=== PATIENT | female | born 1955 | race Caucasian/White ===

== ENCOUNTER → 2022-08-27 | Outpatient (CLI) | payer MEDICARE, SELFPAY ==
--- NOTE | 2022-08-27 11:46 | US_ITS ---
INDICATION: UTI EXAMINATION: Ultrasound US Kidney(s) complete (eg, kidneys and bladder) TECHNIQUE: Boothe scale and color doppler images were obtained of the kidneys. COMPARISON: No relevant prior comparison study available FINDINGS: RIGHT KIDNEY: The right kidney measures 9.5 cm in length. There is no hydronephrosis. No shadowing calculus, focal lesion or perinephric collection is demonstrated. LEFT KIDNEY: The left kidney measures 11.3 cm in length. There is no hydronephrosis. No shadowing calculus, focal lesion or perinephric collection is demonstrated. URINARY BLADDER: No acute abnormality. US/Kidney and Bladder IMPRESSION: Within normal limits renal ultrasound. Electronically Signed: Tona Cruz MD at 12:39 EDT ,
== END | disposition home or self-care (01) ==
PROVIDERS: PCP Student in an Organized Health Care Education/Training Program; Referring Provider Urology; Visit Provider Urology
DX: N39.0 Urinary tract infection, site not specified (principal)
CPT/HCPCS: 76770

== ENCOUNTER → 2022-12-19 | Outpatient (CLI) | payer MEDICARE, SELFPAY ==
--- NOTE | 2022-12-19 12:27 | CT_ITS ---
STUDY: CT CHEST WITH CONTRAST REASON FOR EXAM: Female, 67 years old. CHEST PAIN RADIATION DOSAGE (If Supplied By Facility): CTDIvol = ( 33.32 ) mGy, DLP = ( 1166.38 ) mGycm TECHNIQUE: Transaxial imaging was performed following intravenous administration of 50 mL of Isovue 370. Individualized dose optimization techniques were used for this CT. COMPARISON: No relevant priors. FINDINGS: CHEST Minimal linear scarring at the right lung base. There is no demonstrated pleural abnormality. Normal heart and pericardium. No significant coronary artery calcification is seen. Normal mediastinum. Normal hilar regions. Normal unenhanced pulmonary arteries. Mild calcific plaque of the aortic arch. Normal osseous structures. Fatty infiltration of the liver. CT/Limited Chest CT Cardiac Only IMPRESSION: No evidence of coronary artery calcification. Electronically Signed: Sergio Barraza MD at 15:41 EST ,
[2022-12-19 12:42] VITALS: BP 154/67; PULSE 61; RESP 16; O2SAT 98; BMI 32.1
[2022-12-19 13:02] VITALS: PULSE 56
[2022-12-19] MEDS: Nitroglycerin SL (ED/IMG/CATH) 0.4 MG TABLET SL (13:02)
[2022-12-19 13:07] VITALS: BP 133/71; PULSE 61; RESP 14; O2SAT 95
[2022-12-19 13:09] LABS: EGFR FINGERSTICK > 60.0000 mL/min (>60)
--- NOTE | 2022-12-31 18:36 | CCTA_ITS ---
CCTA w/Cont Coronary Arteries Date of Study:: 12/19/22 Chest pain Coronary Calcium Scoring: High-resolution Computed Tomographic imaging of the chest was performed on [12/19/2022], with particular attention paid to the coronary arteries. Intravenous contrast agent was administered per protocol and images reconstructed and displayed. LEFT MAIN CORONARY ARTERY: Arose from the left coronary cusp with no significant calcification or stenosis present [] LEFT ANTERIOR DESCENDING CORONARY ARTERY: Minimal atherosclerotic plaquing noted with no high-grade stenosis present [] LEFT CIRCUMFLEX CORONARY ARTERY: Minimal atherosclerotic plaque with no high- grade stenosis present [] RIGHT CORONARY ARTERY: Dominant vessel with no significant atherosclerotic plaque noted. [] THORACIC AORTA: [] PULMONARY ARTERY: [] LEFT ATRIUM/APPENDAGE: [] MITRAL VALVE: [] AORTIC VALVE: [] LEFT VENTRICLE: [] CORONARY CALCIUM SCORE: Not performed Conclusion: Minimal atherosclerotic cardiovascular plaque noted. []
== END | disposition home or self-care (01) ==
PROVIDERS: PCP Student in an Organized Health Care Education/Training Program; Referring Provider Nurse Practitioner Family; Visit Provider Nurse Practitioner Family
DX: R07.9 Chest pain, unspecified (principal); I10 Essential (primary) hypertension; E78.5 Hyperlipidemia, unspecified; I34.1 Nonrheumatic mitral (valve) prolapse
CPT/HCPCS: 75574; 76380; Q9967

== ENCOUNTER 2024-11-03 05:26 | Day surgery (SDC) | payer MEDICARE, SELFPAY ==
--- NOTE | 2024-10-28 15:58 | PAT.ANESEVAL ---
Pre-Assessment Diagnosis/Proposed Procedure Planned Operative Procedure(s): EGD Anesthesia History Anesthesia History - resource engineer: Anesthesia History - resource engineer Hx Hospitalization No 10/28/24 14:14 Any Problems With Anesthesia No 10/28/24 14:14 Cholinesterase deficiency No 10/28/24 14:14 You/Your Family Experience No 10/28/24 14:14 fever (hyperthermia) with Relationship Recent Exposure to Contagious Disease Does patient have nerve No 10/28/24 14:14 stimulator Patient instructed to have device shut off --Does patient have Pacemaker or ICD? When Was Last Pacemaker Check QUESTION #4 FULL TEXT: You/Your Family Experience fever (hyperthermia) with Anesthesia Last Oral Intake Last Oral intake: Last Oral Intake NPO since Meds taken in AM with sips of water? Meds patient instructed to take am of surgery PONV PONV - resource engineer: PONV - resource engineer Female Yes 10/28/24 14:14 HX of Motion Sickness No 10/28/24 14:14 HX of N/V After Surgery No 10/28/24 14:14 Non-Smoker Yes 10/28/24 14:14 Duration of Surgery greater No 10/28/24 14:14 than 60 minutes Number of Risk Factors 2 10/28/24 14:14 PONV Score Moderate Risk 10/28/24 14:14 Height & Weight Height & Weight: Anesthesia: Height & Weight Height 5 ft 6 in 09/22/24 13:57 Respiratory Assessment Respiratory Assessment - resource engineer: Respiratory Tract Infection Hx - resource engineer Hx Respiratory Tract Infection No 10/28/24 14:14 STOP Sleep Apnea STOP Sleep Apnea - resource engineer: STOP Sleep Apnea - resource engineer Hx Hypertension Yes: CONTROLLED ON MED 10/28/24 14:14 Hx Sleep Apnea No 10/28/24 14:14 CPAP BIPAP Do you snore loudly (louder Yes 10/28/24 14:14 than talking or can be heard Do you often feel tired/ No 10/28/24 14:14 fatigued/ sleepy during daytime? Has anyone observed you stop No 10/28/24 14:14 breathing during sleep? STOP Results Positive 10/28/24 14:14 QUESTION #5 FULL TEXT : Do you snore loudly (louder than talking or can be heard through closed doors)? Tobacco Use History Tobacco Use History - resource engineer: Tobacco Use History - resource engineer Tobacco Use Smoking Status Never smoker 10/28/24 14:14 Hx Tobacco Use No 10/28/24 14:14 Years Smoking Packs Smoked per Day Smoking Cessation Date was within the last 15 years Hx Smoking Cessation Date Hx Smoking Cessation Counseling Hematologic Medial History Hematologic Hx - resource engineer: Hematologic Medical Hx - senior information security consultant Hx of Blood Transfusion No 10/28/24 14:14 Hx of Transfusion in last 3 No 10/28/24 14:14 Months Date of Last Transfusion (if within last 3 months) Ever experience any problems No 10/28/24 14:14 with transfusion(s)? Specify any problems Hx of Preganancy in last 3 No 10/28/24 14:14 Months Nurse Filling Out Transfusion VCHRISTIN 10/28/24 14:14 & Questions: Date: 10/28/24 10/28/24 14:14 Time: 14:16 10/28/24 14:14 Patient unable to answer at this time (ie. confused, unrespo /Reproduction History /Reproductive History - resource engineer: /Reproductive Hx- resource engineer Hx Now No 10/28/24 14:14 Gestational Age (in weeks): EDC: Hx Hx Para Hx Section SAB No 10/28/24 14:14 [facility] Medical History (Updated 10/28/24 @ 14:14 by Shruti Soliman) Wears contact lenses Wears glasses Post-menopausal Cancer History of steroid therapy Migraine headache Gastric reflux Non-smoker History of echocardiogram History of stress test Cardiology follow-up encounter History of irregular heartbeat Skin cancer Mitral valve prolapse Kidney stones Ovarian cancer UTI (urinary tract infection) Peripheral edema Migraine with aura History of kidney stones History of ovarian cancer Fatty liver Elevated HDL Diverticulosis Dermatofibroma History of basal cell carcinoma Mitral and aortic regurgitation Hypertension Home Medications ?Medication ?Instructions ?Recorded ?Last Taken ?Type vibegron 75 mg tablet (Gemtesa) 75 mg PO DAILY 12/19/22 Unknown History lactobacillus combination no.9 4 4,000 mmu cells PO QDAY 09/21/24 Unknown History billion cell capsule (Adult 50 Plus Probiotic) multivitamin 1 tab PO QAM 09/21/24 Unknown History naratriptan 1 mg tablet 1 mg PO PRN 09/21/24 Unknown History calcium 600 mg (as 1 cap PO BID 09/22/24 Unknown History carbonate)-vitamin D3 12.5 mcg (500 unit) capsule (Calcium with Vit D3) esomeprazole magnesium 20 mg 30 mg PO QDAY 09/22/24 Unknown History capsule,delayed release irbesartan 300 mg tablet 150 mg PO BID 09/22/24 Unknown History semaglutide (weight loss) 1 mg/0.5 1 mg subcut QWEEK 09/22/24 Unknown History mL subcutaneous pen injector (Wegovy) Allergy/AdvReac Type Severity Reaction Status Date / Time tolterodine (From Detrol) AdvReac Intermediate buzzing in Verified 10/28/24 14:04 ears Family History Mother Allergic rhinitis Alzheimer's dementia Asthma CHF (congestive heart failure) Cancer Lung DJD (degenerative joint disease) Heart disease Lymphoma Osteoporosis Father Cancer prostate and renal Hypertension Sister Cancer Depression Surgical History (Updated 10/28/24 @ 14:14 by Shruti Soliman) History of esophagogastroduodenoscopy (EGD) H/O colonoscopy H/O wisdom tooth extraction History of tonsillectomy History of appendectomy History of total knee replacement H/O: hysterectomy H/O Achilles tendon repair Social History Smoking Status: Never smoker alcohol intake: current details: rare: 1 to 2 times a year substance use type: does not use what type of physical activity do you participate in: walking frequency: 5-6 times per week Audit: Pertinent Findings Pertinent Findings Consult pertinent findings: Patient with history of hypertension, MVP, and hyperlipidemia. She underwent a coronary CTA 12/31/2022 which showed minimal plaque. Last echo was on 03/27/2018 and it showed EF of 60 to 65% normal mitral valve and mild TR. Recommendation Anesthesia Recommendation Anesthesia recommendation: OPTIMIZED for anesthesia
[2024-11-03] VITALS (7 sets, daily range): BP systolic 96–136; BP diastolic 61–72; PULSE 63–65; RESP 16–18; TEMP 36.2–36.6; O2SAT 96–98; BMI 28.0
--- OUTSIDE RECORDS SUMMARY | 2024-11-03 05:30 | XMS RPT_ITS | CCD ---
Author Organization [facility] Care Team Providers Care [facility] Machine Feeder Name Role Phone ALBA VICK, MILVIA Sharma Primary Care Physician [phone] ROMAR DO, DR SIFUENTES Primary Care Physician [phone] APPLE VICK, DR EMILI Brown Attending Unavailab le ROMAR DO, DR SIFUENTES Primary Care Unavailable ROMAR DO, DR SIFUENTES Attending Unavailable ROMAR DO, DR SIFUENTES Primary Care Unavailable ROMAR DO, DR SIFUENTES Attending Unavailable ROMAR DO, DR SIFUENTES Primary Care Unavailable ROMAR DO, DR SIFUENTES Primary Care Unavailable ARRON DO, XAVI Fritz Attending Unavailable ROMAR DO, DR SIFUENTES Primary Care Unavailable ROMAR DO, DR SIFUENTES Attending Unavailable ROMAR DO, DR SIFUENTES Primary Care Unavailable SUPPAN DPM, JILL Ordoñez Attending Unavailable ROMAR DO, DR SIFUENTES Attending Unavailable ROMAR DO, DR SIFUENTES Primary Care Unavailable ROMAR DO, DR SIFUENTES Attending Unavailable ROMAR DO, DR SIFUENTES Primary Care Unavailable ROMAR DO, DR SIFUENTES Attending Unavailable ROMAR DO, DR SIFUENTES Primary Care Unavailable APPLE VICK, DR EMILI Brown Attending Unavailab le ROMAR DO, DR SIFUENTES Primary Care Unavailable APLPE VICK, DR EMILI Brown Attending Unavailab le ROMAR DO, DR SIFUENTES Primary Care Unavailable APPLE VICK, DR EMILI Brown Attending Unavailab le ROMAR DO, DR SIFUENTES Primary Care Unavailable Romar DO, Dr. Sifuentes Primary Care Provider [phone] Layton VICK, Dr. Phillips Attending Provider [phone] Zaki JAIMES, Dr. Sifuentes Referring Provider Cole SMALLWOOD-CStacey Attending Provider ZAKI DO, DR SIFUENTES Primary Care Unavailable ROMAR DO, DR SIFUENTES Attending Unavailable ROMAR DO, DR SIFUENTES Primary Care Unavailable ROMAR DO, DR SIFUENTES Attending Unavailable ROMAR DO, DR SIFUENTES Primary Care Unavailable ROMAR DO, DR SIFUENTES Attending Unavailable ROMAR DO, DR SIFUENTES Primary Care Unavailable ROMAR DO, DR SIFUENTES Attending Unavailable ROMAR DO, DR SIFUENTES Primary Care Unavailable ROMAR DO, DR SIFUENTES Attending Unavailable ROMAR DO, DR SIFUENTES Primary Care Unavailable ROMAR DO, DR SIFUENTES Attending Unavailable ROMAR DO, DR SIFUENTES Primary Care Unavailable ROMAR DO, DR SIFUENTES Attending Unavailable ROMAR DO, DR SIFUENTES Attending Unavailable ROMAR DO, DR SIFUENTES Primary Care Unavailable ROMAR DO, DR SIFUENTES Primary Care Unavailable ROMAR DO, DR SIFUENTES Attending Unavailable ROMAR DO, DR SIFUENTES Primary Care Unavailable ROMAR DO, DR SIFUENTES Attending Unavailable ROMAR DO, DR SIFUENTES Attending Unavailable ROMAR DO, DR SIFUENTES Primary Care Unavailable ROMAR DO, DR SIFUENTES Primary Care Unavailable ROMAR DO, DR SIFUENTES Attending Unavailable ROMAR DO, DR SIFUENTES Primary Care Unavailable ROMAR DO, DR SIFUENTES Attending Unavailable ROMAR DO, DR SIFUENTES Attending Unavailable ROMAR DO, DR SIFUENTES Primary Care Unavailable ROMAR DO, DR SIFUENTES Primary Care Unavailable ROMAR DO, DR SIFUENTES Attending Unavailable Romar, Bear Primary Care Unavailable Romar, Bear Referring Unavailable Stacey Galvan Attending Unavailable Busterar, Bear Primary Care Unavailable Friend, Almas Attending Unavailable Allergies Allergy Classification Reported Allergen(s) Allergy Type Date of Onset Reaction(s) Facility tolterodine (1 source) tolterodine; Translations: [tolterodine] Drug Allergy BUZZING IN HEAD [facility] (20 sources) tolterodine; Translations: [tolterodine] Drug Allergy 3 BUZZING IN HEAD, Other, buzzing in ears [facility] (1 source) tolterodine Drug Allergy 5 [facility] Repository Medications Current Medications Medication Drug Class(es) Dates Sig (Normalized) Sig (Original) 0.5 ML semaglutide 0.5 MG/ML Auto-Injector [Wegovy] (1 source) Start: 06-10-2024 End: 08-05-2024 inject 1 dose by subcutaneous injection every week Wegovy (0.25 mg dose) subcutaneous solution Dose : 0.25 mg =, Subcutaneous, qWeek, [facility] program $499/month, # 2 mL, 1 Refill(s), Pharmacy: [facility], 167.6, cm, 05/27/24 15:50:00 EDT, Height, kg, 05/27/24 15:50:00 EDT, Dosing Weight Start Date: 06/10/24 Stop Date: 08/05/24 Status: Ordered Quantity: 2.0 Unit: mL Repeat number: 2 0.5 ML semaglutide 1 MG/ML Auto-Injector [Wegovy] (3 sources) Start: 06-24-2024 End: 10-14-2024 inject 1 dose by subcutaneous injection every week Wegovy (0.5 mg dose) subcutaneous solution Dose : 0.5 mg =, Subcutaneous, qWeek, in the abdomen, thigh, or upper arm, # 2 mL, 3 Refill(s), Pharmacy: [facility], 167.6, cm, 05/27/24 15:50:00 EDT, Height, kg, 05/27/24 15:50:00 EDT, Dosing Weight Start Date: 06/24/24 Stop Date: 10/14/24 Status: Ordered Quantity: 2.0 Unit: mL Repeat number: 4 0.5 ML semaglutide 2 MG/ML Auto-Injector [Wegovy] (5 sources) Start: 09-02-2024 End: 11-25-2024 inject 1 dose by subcutaneous injection every week Wegovy (1 mg dose) subcutaneous solution Dose : 1 mg =, Subcutaneous, qWeek, in the abdomen, thigh, or upper arm, # 2 mL, 2 Refill(s), Pharmacy: [facility], 162.5, cm, 09/01/24 10:23:00 EDT, Height, kg, 09/01/24 10:23:00 EDT, Dosing Weight Start Date: 09/02/24 Stop Date: 11/25/24 Status: Ordered Medication Dispense Status: Completed Quantity: 2.0 Unit: mL Total Allowed Fills: 3 Fills Dispensed: 0 Start: 09-02-2024 End: 11-25-2024 inject 1 dose by subcutaneous injection every week Evaristo (1 mg dose) subcutaneous solution Dose : 1 mg =, Subcutaneous, qWeek, in the abdomen, thigh, or upper arm, # 2 mL, 2 Refill(s), Pharmacy: [facility], 162.5, cm, 09/01/24 10:23:00 EDT, Height, kg, 09/01/24 10:23:00 EDT, Dosing Weight Start Date: 09/02/24 Stop Date: 11/25/24 Status: Ordered Quantity: 2.0 Unit: mL Repeat number: 3 amLODIPine 5 mg oral tablet (2 sources) Dihydropyridine Calcium Channel Libertad Start: 01-09-2021 take 1 tablet by mouth once daily amLODIPine 5 mg oral tablet See Instructions, TAKE 1 TABLET BY MOUTH EVERY DAY, # 30 tab(s), 3 Refill(s), Pharmacy: [id number], 165.5, cm, 12/15/20 7:59:00 EDT, Height, kg, 12/15/20 7:59:00 EDT, Dosing Weight Start Date: 01/09/21 Status: Ordered Start: 12-15-2020 amLODIPine 5 m g oral tablet Dose : 5 mg = 1 tab(s), Oral, qDay, # 30 tab(s), 3 Refill(s), Pharmacy: [facility]/pharmacy #[id number], 165.5, cm, 12/15/20 7:59:00 EDT, Height, kg, 12/15/20 7:59:00 EDT, Dosing Weight Start Date: 12/15/20 Status: Ordered amoxicillin 500 mg oral capsule (1 source) Penicillin-class Antibacterial Start: 04-24-2022 amoxicillin 500 mg oral capsule Dose : 500 mg = 1 cap(s), TID, 0 Refill(s) Start Date: 04/24/22 Status: Ordered amoxicillin 875 mg / clavulanate 125 mg oral tablet (2 sources) Penicillin-class Antibacterial Start: 11-25-2020 End: 12-02-2020 take 1 tablet by mouth every twelve hours amoxicillin-clav ulanate 875 mg-125 mg oral tablet 1 tab(s), Oral, q12h, X 7 day(s), # 14 tab(s), 0 Refill(s), 12/02/20 8:43:00 EDT, Pharmacy: [facility]/pharmacy #[id number], Acute sinusitis, 167.6, cm, 11/25/20 8:19:00 EDT, Height, 92.3, kg, 11/25/20 8:19:00 EDT, Dosing Weight Start Date: 11/25/20 Stop Date: 12/02/20 Status: Ordered benzonatate 100 mg oral capsule (2 sources) Non-narcotic Antitussive Start: 11-25-2020 End: 12-05-2020 Tessalon Perles 100 mg oral capsule Dose : 100 mg = 1 cap(s), Oral, TID, PRN as needed for cough, X 10 day(s), # 30 cap(s), 0 Refill(s), 12/05/20 8:44:00 EDT, Pharmacy: [facility]/pharmacy #[id number], Acute sinusitis, 167.6, cm, 11/25/20 8:19:00 EDT, Height, kg, 11/25/20 8:19:00 EDT, Dosing Weight Start Date: 11/25/20 Stop Date: 12/05/20 Status: Ordered calcium carbonate 1500 mg / cholecalciferol 500 unt oral capsule (1 source) Vitamin D Start: 09-22-2024 Calcium Carbonate-Vitami n D3 (Calcium 600 With Vitamin D3) 600 mg-12.5 mcg (500 unit) capsule Active NMA PO September 22, 2024 12:00am calcium carbonate 600 MG / ergocalciferol 200 UNT Oral Capsule (20 sources) Provitamin D2 Compound Start: 10-16-2018 take 1 capsule by mouth twice daily calcium-vitamin D 600 mg-200 intl units oral capsule cap(s), Oral, BID, 0 Refill(s) Start Date: 10/16/18 Status: Ordered Repeat number: 1 Start: 10-16-2018 take 1 capsule by mo [facility] twice daily calcium-vitamin D 600 mg-200 intl units oral capsule cap(s), Oral, BID, 0 Refill(s) Start Date: 10/16/18 Status: Ordered Calcium Carbonate-Vitamin D2 (1 source) Start: 12-19-2022 Calcium Carbon ate-Vitamin D2 Active TABLET PO December 19, 2022 12:00am Calcium with Vitamin D and Minerals oral tablet (9 sources) Start: 03-12-2024 take 1 tablet by mouth twice daily Calcium with Vitamin D and Minerals oral tablet Dose = 2 tab(s), Oral, BID, with a full glass of water, # 120 tab(s), 0 Refill(s) Start Date: 03/12/24 Status: Ordered Medication Dispense Status: Completed Quantity: 120.0 Unit: tab(s) Total Allowed Fills: 1 Fills Dispensed: 0 Start: 03-12-2024 take 1 tablet by kisha th twice daily Calcium with Vitamin D and Minerals oral tablet Dose = 2 tab(s), Oral, BID, with a full glass of water, # 120 tab(s), 0 Refill(s) Start Date: 03/12/24 Status: Ordered Quantity: 120.0 Unit: tab(s) Repeat number: 1 Calcium/Magnesium/Vit D (7 sources) Start: 08-23-2014 take 600 mg by mouth twice daily Calcium/Magnesium/Vit D 600 mg, Oral, BID, 0 Refill(s) Start Date: 08/23/14 Status: Ordered carvedilol 6.25 mg oral tablet (4 sources) alpha-Adrenergic Libertad, beta-Adrenergic Libertad Start: 09-12-2020 carvedilol 6.25 mg oral tablet Dose : 6.25 mg = 1 tab(s), Oral, BID, # 60 tab(s), 11 Refill(s), Pharmacy: [facility]/pharmacy #[id number], 168, cm, 02/16/20 11:11:00 EST, Height, kg, 02/16/20 11:11:00 EST, Dosing Weight Start Date: 09/12/20 Status: Ordered ciprofloxacin 250 mg oral tablet (1 source) Quinolone Antimicrobial Start: 12-17-2020 End: 12-24-2020 Cipro 250 mg oral tablet Dose : 250 mg = 1 tab(s), Oral, q12h, X 7 day(s), # 14 tab(s), 0 Refill(s), 12/24/20 8:40:00 EST, Pharmacy: [facility]/pharmacy #[id number], 165.5, cm, 12/15/20 7:59:00 EDT, Height, 92.6, kg, 12/15/20 7:59:00 EDT, Dosing Weight Start Date: 12/17/20 Stop Date: 12/24/20 Status: Ordered Co-Q10 (15 sources) Start: 12-31-2019 take 1 dose by mouth once daily Co-Q10 Dose : 100 mg =, Oral, qDay, 0 Refill(s) Start Date: 12/31/19 Status: Ordered Start: 12-31-2019 esomeprazole 20 mg delayed release oral capsule (20 sources) Proton Pump Inhibitor Start: 09-22-2024 Esomeprazole Magnesi um 20 mg capsule,delayed release(DR/EC) Active 30 mg PO daily September 22, 2024 1:43pm Start: 09-01-2024 End: 02-28-2025 esomeprazole 20 mg oral patricio yed release capsule Dose : 20 mg = 1 cap(s), Oral, qDayAC, on an empty stomach, # 90 cap(s), 1 Refill(s), [id number], 162.5, cm, 09/01/24 10:23:00 EDT, Height, kg, 09/01/24 10:23:00 EDT, Dosing Weight Start Date: 09/01/24 Stop Date: 02/28/25 Status: Ordered Medication Dispense Status: Completed Quantity: 90.0 Unit: cap(s) Total Allowed Fills: 2 Fills Dispensed: 0 Start: 03-03-2024 End: 08-25-2024 esomeprazole 20 mg oral patricio yed release capsule Dose : 20 mg = 1 cap(s), Oral, qDay, on an empty stomach, # 90 cap(s), 0 Refill(s), Pharmacy: [facility]/pharmacy #[id number], 167.6, cm, 03/12/24 10:19:00 EST, Height, kg, 03/12/24 10:19:00 EST, Dosing Weight Start Date: 05/27/24 Stop Date: 08/25/24 Status: Ordered Quantity: 90.0 Unit: cap(s) Repeat number: 1 Start: 06-11-2023 End: 03-14-2024 esomeprazole 40 mg oral patricio yed release capsule Dose : 40 mg = 1 cap(s), Oral, qDayAC, on an empty stomach, # 100 cap(s), 1 Refill(s), Pharmacy: [facility]/pharmacy #[id number], 162.8, cm, 08/27/23 15:13:00 EDT, Height, kg, 08/27/23 15:13:00 EDT, Dosing Weight Start Date: 08/27/23 Stop Date: 03/14/24 Status: Ordered Start: 05-03-2023 esomeprazole 4 0 mg oral delayed release capsule Dose : 40 mg = 1 cap(s), Oral, qDayAC, on an empty stomach, # 90 cap(s), 0 Refill(s), Pharmacy: [facility]/pharmacy #[id number], 164, cm, 03/19/23 10:51:00 EST, Height, kg, 03/19/23 10:51:00 EST, Dosing Weight Start Date: 05/03/23 Status: Ordered Start: 08-07-2022 esomeprazole 4 0 mg oral delayed release capsule Dose : 40 mg = 1 cap(s), Oral, qDayAC, on an empty stomach, # 90 cap(s), 1 Refill(s), Pharmacy: [facility]/pharmacy #[id number], 165.4, cm, 08/07/22 11:32:00 EDT, Height, kg, 08/07/22 11:32:00 EDT, Dosing Weight Start Date: 08/07/22 Status: Ordered Start: 07-26-2022 esomeprazole 4 0 mg oral delayed release capsule Dose : 40 mg = 1 cap(s), Oral, qDayAC, # 90 cap(s), 0 Refill(s), Pharmacy: [facility]/pharmacy #[id number], 162.6, cm, 07/24/22 11:57:00 EDT, Height, kg, 07/24/22 11:57:00 EDT, Dosing Weight Start Date: 07/26/22 Status: Ordered Start: 12-27-2021 esomeprazole 4 0 mg oral delayed release capsule Dose : 40 mg = 1 cap(s), Oral, qDayAC, # 90 cap(s), 1 Refill(s), Pharmacy: [facility]/pharmacy #[id number], 165.5, cm, 12/27/21 16:29:00 EST, Height, kg, 12/27/21 16:29:00 EST, Dosing Weight Start Date: 12/27/21 Status: Ordered Start: 04-18-2021 esomeprazole 4 0 mg oral delayed release capsule Dose : 40 mg = 1 cap(s), Oral, qDayAC, # 90 cap(s), 3 Refill(s), [id number], 165.4, cm, 01/20/21 11:51:00 EST, Height, kg, 01/20/21 11:51:00 EST, Dosing Weight Start Date: 04/18/21 Status: Ordered esomeprazole 40 mg oral delayed release capsule (5 sources) Start: 11-22-2020 esomeprazole 40 mg oral delayed release capsule Dose : 40 mg = 1 cap(s), Oral, qDayAC, 0 Refill(s) Start Date: 11/22/20 Status: Ordered hydroCHLOROthiazide 25 mg oral tablet (5 sources) Thiazide Diuretic Start: 11-09-2021 take 1 tablet by mouth once daily hydroCHLOROthiazide 25 mg oral tablet 1 tab(s), Oral, qDay, # 90 tab(s), 3 Refill(s), [id number], 165.5, cm, 11/09/21 9:58:00 EDT, Height, kg, 11/09/21 9:58:00 EDT, Dosing Weight Start Date: 11/09/21 Status: Ordered Start: 08-07-2021 take 1 tablet by kisha th once daily hydroCHLOROthiazide 25 mg oral tablet 1 tab(s), Oral, qDay, # 90 tab(s), 1 Refill(s), Pharmacy: [id number], 165.5, cm, 07/27/21 8:30:00 EDT, Height, kg, 07/27/21 8:30:00 EDT, Dosing Weight Start Date: 08/07/21 Status: Ordered hydrocortisone 10 mg/ml / neomycin 3.5 mg/ml / polymyxin b 07110 unt/ml otic solution (1 source) Aminoglycoside Antibacterial, Polymyxin-class Antibacterial, Corticosteroid Start: 04-24-2022 hydrocortisone/neomycin/poly myxin B 1%-0.35%-10,000 units/mL otic solution See Instructions, 4 drop(s) Ear, right, three to four times daily for 10 days. Otic suspension please, # 10 mL, 0 Refill(s), Pharmacy: [facility]/pharmacy #[id number], 165.5, cm, 04/24/22 13:21:00 EDT, Height, Dosing Weight Start Date: 04/24/22 Status: Ordered ibuprofen 200 mg oral tablet (19 sources) Nonsteroidal Anti-inflammatory Drug Start: 03-31-2019 Advil 200 mg oral tablet Dos e : 400 mg = 2 tab(s), Oral, q4h, PRN as needed for pain, # 120 tab(s), 0 Refill(s) Start Date: 03/31/19 Status: Ordered irbesartan 300 mg oral tablet (18 sources) Angiotensin 2 Receptor Libertad Start: 05-04-2024 End: 09-22-2024 take 1 tablet by mouth once daily Irbesartan 300 mg tablet Discontinued 300 mg PO daily September 21, 2024 12:00am September 22, 2024 1:45pm Start: 05-04-2024 take 1 tablet by kisha th twice daily Irbesartan 300 mg tablet Active 150 mg PO TWICE A DAY September 22, 2024 1:42pm Start: 07-23-2023 irbesartan 300 mg oral tablet Dose : 300 mg = 1 tab(s), Oral, qDay, # 90 tab(s), 1 Refill(s), Pharmacy: [facility]/pharmacy #[id number], 163, cm, 06/25/23 6:03:00 EDT, Height, kg, 06/25/23 6:03:00 EDT, Dosing Weight Start Date: 07/23/23 Status: Ordered Quantity: 90.0 Unit: tab(s) Repeat number: 2 Start: 04-23-2023 irbesartan 150 mg oral tablet Dose : 150 mg = 1 tab(s), Oral, BID, # 180 tab(s), 3 Refill(s), Pharmacy: [facility]/pharmacy #[id number], 164, cm, 03/19/23 10:51:00 EST, Height, kg, 03/19/23 10:51:00 EST, Dosing Weight Start Date: 04/23/23 Status: Ordered Lactobacillus Combination No.9 (Adult 50 Plus Probiotic) 4 billion cell capsule (1 source) Start: 09-21-2024 take 4 capsules by mouth once daily Lactobacillus Combination No.9 (Adult 50 Plus Probiotic) 4 billion cell capsule Active 4000 NMA PO daily September 21, 2024 12:00am administer with a meal lutein 20 mg oral tablet (5 sources) Start: 10-16-2018 take 1 dose by mouth once daily lutein Dose : 20 mg =, Oral, qDay, 0 Refill(s) Start Date: 10/16/18 Status: Ordered metoprolol tartrate 50 mg oral tablet (1 source) beta-Adrenergi c Libertad Start: 11-14-2022 metoprolol tartrate 50 mg oral tablet See Instructions, Take 1 tab night before and 1 tab one hour prior to test, # 2 tab(s), 0 Refill(s), Pharmacy: [facility]/pharmacy #[id number], 165, cm, 11/14/22 9:01:00 EDT, Height, kg, 11/14/22 9:01:00 EDT, Dosing Weight Start Date: 11/14/22 Status: Ordered Multivitamin preparation (16 sources) Start: 06-03-2023 take 1 tablet by mouth once daily Multivitamin Dose = 1 tab(s), Oral, Daily, 0 Refill(s) Start Date: 06/03/23 Status: Ordered Medication Dispense Status: Completed Total Allowed Fills: 1 Fills Dispensed: 0 Start: 06-03-2023 take 1 tablet by kisha th once daily Multivitamin Dose = 1 tab(s), Oral, Daily, 0 Refill(s) Start Date: 06/03/23 Status: Ordered Repeat number: 1 Start: 06-03-2023 take 1 tablet by kisha th once daily Multivitamin Dose = 1 tab(s), Oral, Daily, 0 Refill(s) Start Date: 06/03/23 Status: Ordered Multivitamin tablet (1 source) Start: 09-21-2024 Multivitamin t ablet Active 1 {tbl} PO EVERY MORNING September 21, 2024 12:00am naratriptan 1 mg oral tablet (20 sources) Serotonin-1b and Serotonin-1d Receptor Agonist Start: 02-20-2022 Amerge 1 mg oral tab let Dose : 1 mg = 1 tab(s), Oral, qDay, PRN as needed for migraine headache, # 9 tab(s), 5 Refill(s), Pharmacy: [facility]/pharmacy #[id number], 167.6, cm, 01/19/22 9:37:00 EST, Height, kg, 01/19/22 9:37:00 EST, Dosing Weight Start Date: 02/20/22 Status: Ordered Medication Dispense Status: Completed Quantity: 9.0 Unit: tab(s) Total Allowed Fills: 6 Fills Dispensed: 0 Start: 02-01-2021 Amerge 1 mg or al tablet Dose : 1 mg = 1 tab(s), Oral, qDay, PRN as needed for migraine headache, # 9 tab(s), 5 Refill(s), [id number], 165.4, cm, 01/20/21 11:51:00 EST, Height, kg, 01/20/21 11:51:00 EST, Dosing Weight Start Date: 02/01/21 Status: Ordered Start: 11-25-2019 Amerge 1 mg or al tablet Dose : 1 mg = 1 tab(s), Oral, qDay, PRN as needed for migraine headache, # 9 tab(s), 5 Refill(s), [id number], 168.8, cm, 11/25/19 13:52:00 EDT, Height, kg, 11/25/19 13:52:00 EDT, Dosing Weight Start Date: 11/25/19 Status: Ordered nitrofurantoin, macrocrystals 25 mg / nitrofurantoin, monohydrate 75 mg oral capsule (1 source) Nitrofuran Antibacterial Start: 07-24-2022 End: 07-29-2022 Macrobid 100 mg oral capsule Dose : 100 mg = 1 cap(s), Oral, BID, Take with food, X 5 day(s), # 10 cap(s), 0 Refill(s), 07/29/22 12:15:00 EDT, [id number], UTI symptoms, 162.6, cm, 07/24/22 11:57:00 EDT, Height, 93.6 Start Date: 07/24/22 Stop Date: 07/29/22 Status: Ordered polyethylene glycol 3350 with electrolytes oral powder for reconstitution (1 source) Start: 09-19-2022 polyethylene glycol 3350 with electrolytes oral powder for reconstitution See Instructions, As directed by provider at [facility]., # 1 EA, 0 Refill(s), Pharmacy: [facility] #[id number], Colon cancer screening, 162.6, cm, 09/19/22 8:51:00 EDT, Height, kg, 09/19/22 8:51:00 EDT, Dosing Weight Start Date: 09/19/22 Status: Ordered Probiotic (20 sources) Start: 03-31-2019 take 1 tablet by mouth once daily Probiotic 1 TABLET, Oral, qDay, 0 Refill(s) Start Date: 03/31/19 Status: Ordered Medication Dispense Status: Completed Total Allowed Fills: 1 Fills Dispensed: 0 Start: 03-31-2019 take 1 tablet by kisha th once daily Probiotic 1 TABLET, Oral, qDay, 0 Refill(s) Start Date: 03/31/19 Status: Ordered Repeat number: 1 Start: 03-31-2019 take 1 tablet by kisha th once daily Probiotic 1 TABLET, Oral, qDay, 0 Refill(s) Start Date: 03/31/19 Status: Ordered Semaglutide (Weight Loss) (1 source) Start: 09-22-2024 Semaglutide (Weight Loss) (Wegovy) 1 mg/0.5 mL pen injector Active 1 mg SC EVERY WEEK September 22, 2024 12:00am administer weeks 9 through 12 of therapy triamcinolone acetonide 0.001 mg/mg topical ointment (1 source) Corticosteroid Start: 08-23-2023 End: 09-06-2023 triamcinolone 0.1% topical ointment Apply 1 sylvia, Topical, BID, -apply a thin film -to affected area -do not apply to face, X 14 day(s), # 30 gram(s), 0 Refill(s), Pharmacy: [facility]/pharmacy #[id number], Ointment, 162.8, cm, 08/23/23 13:49:00 EDT, Height, 91.4, kg, 08/23/23 13:49:00 EDT, Dosing Weight Start Date: 08/23/23 Stop Date: 09/06/23 Status: Ordered valsartan 160 mg oral tablet (17 sources) Angiotensin 2 Receptor Libertad Start: 12-19-2022 End: 09-21-2024 take 1 tablet by mouth twice daily valsartan 160 mg oral tablet 1 tab(s), Oral, BID, # 180 tab(s), 0 Refill(s), Pharmacy: [id number], 165, cm, 11/14/22 9:01:00 EDT, Height, kg, 11/14/22 9:01:00 EDT, Dosing Weight Start Date: 01/02/23 Status: Ordered Start: 07-10-2022 take 1 tablet by kisha twice daily valsartan 160 mg oral tablet 1 tab(s), Oral, BID, # 180 tab(s), 0 Refill(s), Pharmacy: [id number], 165.5, cm, 04/24/22 13:21:00 EDT, Height, kg, 04/24/22 13:21:00 EDT, Dosing Weight Start Date: 07/10/22 Status: Ordered Start: 07-17-2021 take 1 tablet by [facility] twice daily valsartan 160 mg oral tablet 1 tab(s), Oral, BID, # 180 tab(s), 3 Refill(s), Pharmacy: [id number], 165.5, cm, 05/30/21 8:00:00 EDT, Height, kg, 05/30/21 8:00:00 EDT, Dosing Weight Start Date: 07/17/21 Status: Ordered Start: 09-27-2020 Diovan 160 mg oral tablet Dose : 160 mg = 1 tab(s), Oral, BID, # 60 tab(s), 11 Refill(s), Pharmacy: [facility]/pharmacy #[id number], 168, cm, 02/16/20 11:11:00 EST, Height, kg, 02/16/20 11:11:00 EST, Dosing Weight Start Date: 09/27/20 Status: Ordered Vibegron (2 sources) Start: 12-19-2022 [facility] Vibegron (Gemtesa) 75 mg tablet Active 75 mg PO DAILY December 19, 2022 1:00am Start: 12-19-2022 [facility] Vibegron (Gemtesa) 75 mg tablet Active 75 MG PO DAILY December 19, 2022 12:00am vibegron 75 MG Oral Tablet [Gemtesa] (20 sources) Start: 09-19-2022 Gemtesa 75 mg oral tablet Dose : 75 mg = 1 tab(s), Oral, qDay, # 30 tab(s), 0 Refill(s) Start Date: 09/19/22 Status: Ordered Medication Dispense Status: Completed Quantity: 30.0 Unit: tab(s) Total Allowed Fills: 1 Fills Dispensed: 0 Start: 09-19-2022 Gemtesa 75 mg oral tablet Dose : 75 mg = 1 tab(s), Oral, qDay, # 30 tab(s), 0 Refill(s) Start Date: 09/19/22 Status: Ordered Quantity: 30.0 Unit: tab(s) Repeat number: 1 Start: 09-19-2022 Gemtesa 75 mg oral tablet Dose : 75 mg = 1 tab(s), Oral, qDay, # 30 tab(s), 0 Refill(s) Start Date: 09/19/22 Status: Ordered Vitamin D3 25 mcg (1000 intl units) oral capsule (2 sources) Start: 06-11-2023 Vitamin D3 25 mcg (1000 intl units) oral capsule Dose : 25 mcg = 1 cap(s), Oral, Daily, # 30 cap(s), 0 Refill(s) Start Date: 06/11/23 Status: Ordered Completed/Discontinued Medications Medication Drug Class(es) Dates Sig (Normalized) Sig (Original) Calcium Carbonate-Vitamin D2 600 mg calcium- 200 unit tablet (1 source) Start: 12-19-2022 End: 09-21-2024 Calcium Carbonate-Vitamin D2 600 mg calcium- 200 unit tablet Discontinued {tbl} PO December 19, 2022 1:00am September 21, 2024 11:46am meclizine hydrochloride 12.5 mg oral tablet (1 source) Antiemetic Start: 04-24-2022 End: 04-27-2022 meclizine 12.5 mg oral tablet Dose : 12.5 mg = 1 tab(s), Oral, q6hr, PRN as needed for dizziness, # 12 tab(s), 0 Refill(s), Pharmacy: [facility] [facility], 165.5, cm, 04/24/22 13:21:00 EDT, Height Start Date: 04/24/22 Stop Date: 04/27/22 Status: Ordered meloxicam 7.5 mg oral tablet (9 sources) Nonsteroidal Anti-inflammatory Drug Start: 09-21-2024 End: 09-22-2024 take 1 tablet by mouth once daily Meloxicam 7.5 mg tablet Discontinued 7.5 mg PO daily September 21, 2024 12:00am September 22, 2024 1:44pm Start: 09-01-2024 meloxicam 15 m g oral tablet Dose : 15 mg = 1 tab(s), Oral, qDay, unsure of dosing, from orthopedics, 0 Refill(s) Start Date: 09/01/24 Status: Ordered Medication Dispense Status: Completed Total Allowed Fills: 1 Fills Dispensed: 0 Start: 08-23-2023 meloxicam 7.5 mg oral tablet Dose : 7.5 mg = 1 tab(s), Oral, qDay, # 30 tab(s), 0 Refill(s) Start Date: 08/23/23 Status: Ordered Quantity: 30.0 Unit: tab(s) Repeat number: 1 ubidecarenone 100 mg oral capsule (2 sources) Start: 12-19-2022 End: 09-21-2024 Coenzyme Q10 (Co Q-10) 100 m g capsule Discontinued 100 mg PO DAILY December 19, 2022 1:00am September 21, 2024 11:45am Problems Active Problems Problem Classification Problem Date Documented Date Episodic/Chronic Calculus of urinary tract (20 sources) History of calculus of kidney 12-27-2021 Episodic Cancer of ovary (20 sources) History of malignant neoplasm of ovary 08-23-2014 Episodic Conditions associated with dizziness or vertigo (20 sources) Benign paroxysmal positional vertigo; Translations: [Benign paroxysmal vertigo, unspecified ear] Episodic Diverticulosis and diverticulitis (12 sources) Diverticular disease 08-27-2023 Chronic Esophageal disorders (20 sources) Gastroesophageal reflux disease; Translations: [Gastro-esophageal reflux disease without esophagitis] Onset: 03-03-2024 12-27-2021 Chronic Essential hypertension (20 sources) Hypertensive disorder; Translations: [Essential (primary) hypertension] Onset: 03-06-2023 01-02-2019 Chronic Genitourinary symptoms and ill-defined conditions (20 sources) Urinary incontinence; Translations: [Unspecified urinary incontinence] 08-07-2022 Chronic Headache; including migraine (20 sources) Migraine; Translations: [Migraine with aura] 08-23-2014 Chronic Headache; including migraine (1 source) Frequent headache; Translations: [Frequent headaches] 09-22-2024 Episodic Heart valve disorders (7 sources) Mitral valve prolapse; Translations: [Nonrheumatic mitral (valve) insufficiency] 01-02-2019 Chronic Neoplasms of unspecified nature or uncertain behavior (20 sources) Neoplasm and/or hamartoma; Translations: [Melanocytic nevi, unspecified] 08-07-2022 Episodic Osteoarthritis (1 source) Arthritis; Translations: [Unspecified osteoarthritis, unspecified site] 09-22-2024 Chronic Other aftercare (1 source) Follow-up orthopedic assessment; Translations: [Aftercare following joint replacement surgery] Chronic Other and unspecified benign neoplasm (16 sources) Benign neoplasm of skin of head and neck 03-19-2023 Episodic Other connective tissue disease (1 source) Artificial knee joint present; Translations: [Presence of right artificial knee joint] Chronic Other connective tissue disease (1 source) Musculoskeletal test abnormal; Translations: [Other symptoms and signs involving the musculoskeletal system] Episodic Other ear and sense organ disorders (20 sources) Otitis externa; Translations: [Unspecified otitis externa, right ear] 04-24-2022 Chronic Other liver diseases (18 sources) Steatosis of liver 03-06-2023 Chronic Other lower respiratory disease (9 sources) Snoring 06-04-2024 Episodic Other lower respiratory disease (2 sources) Snoring; Translations: [Snoring] Onset: 06-30-2024 Episodic Other nervous system disorders (1 source) Walking disability; Translations: [Difficulty in walking, not elsewhere classified] Chronic Other non-traumatic joint disorders (1 source) Pain in right knee; Translations: [Pain of right knee joint] Episodic Other nutritional; endocrine; and metabolic disorders (20 sources) High density lipoprotein above reference range 08-07-2022 Chronic Comment on above: 06/03 ascvd risk 6.9% Other nutritional; endocrine; and metabolic disorders (1 source) Body mass index (BMI) 34.0-34.9, adult; Translations: [Body mass index [BMI] 34.0-34.9, adult] Onset: 10-28-2024 Chronic Other and delivery including normal (7 sources) 07-01-2024 Episodic Comment on above: System added from do cumentation. Status documented as Yes on Admission Other screening for suspected conditions (not mental disorders or infectious disease) (5 sources) Encounter for screening for lipoid disorders; Translations: [Abnormal results of kidney function studies] Onset: 08-30-2023 Episodic Other skin disorders (1 source) Seborrheic keratosis; Translations: [Other seborrheic keratosis] 09-21-2024 Episodic Residual codes; unclassified (10 sources) Hypersomnia; Translations: [Hypersomnia, unspecified] 06-04-2024 Chronic Residual codes; unclassified (4 sources) Hypersomnia, unspecified; Translations: [Hypersomnia, unspecified] Onset: 06-30-2024 Chronic Residual codes; unclassified (20 sources) Peripheral edema 12-27-2021 Episodic Residual codes; unclassified (18 sources) Flushing 03-06-2023 Episodic Residual codes; unclassified (1 source) Past history of procedure; Translations: [Other specified postprocedural states] Episodic Thyroid disorders (19 sources) Multinodular goiter; Translations: [Nontoxic multinodular goiter] 03-06-2023 Chronic Unclassified (20 sources) Moderate mitral valve regurgitation 12-27-2021 Unclassified (19 sources) Seborrheic keratosis 11-06-2022 Unclassified (12 sources) Glomerular filtration rate decreased 08-27-2023 Unclassified (20 sources) Patient encounter status 09-23-2023 Past or Other Problems Problem Classification Problem Date Documented Da te Episodic/Chronic Administrative/social admission (3 sources) Dietary counseling and surveillance; Translations: [Dietary counseling and surveillance] Onset: 06-10-2024 Episodic Other and unspecified benign neoplasm (2 sources) Melanocytic nevi, unspecified; Translations: [Melanocytic nevi, unspecified] Onset: 09-21-2022 Episodic Other non-epithelial cancer of skin (20 sources) Basal cell carcinoma of skin; Translations: [History of malignant basal cell neoplasm of skin] Onset: 03-03-2024 05-09-2023 Episodic Results Test Name Value Interpretation Reference Range Facility MR/[facility] 10-28-2024 /[facility] Medical Records Department [address] [facility] [place] [place] [address] PAT - Anesthesia 10/28/24 1558 MR#: [id number] Acct: [id number] Name: GAVIOTA DAVIES Rep #: [id number] : 1955 69 From: Devante Hahn MD PCP: Dr. Bear Haines, DO Status:PRE SDC Y Race: C Location: EN Pre-Assessment Diagnosis/Proposed Procedure Planned Operative Procedure(s): EGD Anesthesia History Anesthesia History - rehabilitation clerk: Anesthesia History - rehabilitation clerk Hx Hospitalization No 10/28/24 14:14 Any Problems With Anesthesia No 10/28/24 14:14 Cholinesterase deficiency No 10/28/24 14:14 You/Your Family Experience No 10/28/24 14:14 fever (hyperthermia) with Relationship Recent Exposure to Contagious Disease Does patient have nerve No 10/28/24 14:14 stimulator Patient instructed to have device shut off --Does patient have Pacemaker or ICD? When Was Last Pacemaker Check QUESTION #4 FULL TEXT: You/Your Family Experience fever (hyperthermia) with Anesthesia Last Oral Intake Last Oral intake: Last Oral Intake NPO since Meds taken in AM with sips of water? Meds patient instructed to take am of surgery PONV PONV - rehabilitation clerk: PONV - rehabilitation clerk Female Yes 10/28/24 14:14 HX of Motion Sickness No 10/28/24 14:14 HX of N/V After Surgery No 10/28/24 14:14 Non-Smoker Yes 10/28/24 14:14 Duration of Surgery greater No 10/28/24 14:14 than 60 minutes Number of Risk Factors 2 10/28/24 14:14 PONV Score Moderate Risk 10/28/24 14:14 Height Weight Height Weight: Anesthesia: Height Weight Height 5 ft 6 in 09/22/24 13:57 Respiratory Assessment Respiratory Assessment - rehabilitation clerk: Respiratory Tract Infection Hx - rehabilitation clerk Hx Respiratory Tract Infection No 10/28/24 14:14 STOP Sleep Apnea STOP Sleep Apnea - rehabilitation clerk: STOP Sleep Apnea - rehabilitation clerk Hx Hypertension Yes: CONTROLLED ON MED 10/28/24 14:14 Hx Sleep Apnea No 10/28/24 14:14 CPAP BIPAP Do you snore loudly (louder Yes 10/28/24 14:14 than talking or can be heard Do you often feel tired/ No 10/28/24 14:14 fatigued/ sleepy during daytime? Has anyone observed you stop No 10/28/24 14:14 breathing during sleep? STOP Results Positive 10/28/24 14:14 QUESTION #5 FULL TEXT : Do you snore loudly (louder than talking or can be heard through closed doors)? Tobacco Use History Tobacco Use History - rehabilitation clerk: Tobacco Use History - rehabilitation clerk Tobacco Use Smoking Status Never smoker 10/28/24 14:14 Hx Tobacco Use No 10/28/24 14:14 Years Smoking Packs Smoked per Day Smoking Cessation Date was within the last 15 years Hx Smoking Cessation Date Hx Smoking Cessation Counseling Hematologic Medial History Hematologic Hx - rehabilitation clerk: Hematologic Medical Hx - rn documentation specialist Hx of Blood Transfusion No 10/28/24 14:14 Hx of Transfusion in last 3 No 10/28/24 14:14 Months Date of Last Transfusion (if within last 3 months) Ever experience any problems No 10/28/24 14:14 with transfusion(s)? Specify any problems Hx of Preganancy in last 3 No 10/28/24 14:14 Months Nurse Filling Out Transfusion VCHRISTIN 10/28/24 14:14 Questions: Date: 10/28/24 10/28/24 14:14 Time: 14:16 10/28/24 14:14 Patient unable to answer at this time (ie. confused, unrespo /Reproduction History /Reproductive History - rehabilitation clerk: /Reproductive Hx- rehabilitation clerk Hx Now No 10/28/24 14:14 Gestational Age (in weeks): EDC: Hx Hx Para Hx Section SAB No 10/28/24 14:14 [facility] Medical History (Updated 10/28/24 @ 14:14 by Shruti Soliman) Wears contact lenses Wears glasses Post-menopausal Cancer History of steroid therapy Migraine headache Gastric reflux Non-smoker History of echocardiogram History of stress test Cardiology follow-up encounter History of irregular heartbeat Skin cancer Mitral valve prolapse Kidney stones Ovarian cancer UTI (urinary tract infection) Peripheral edema Migraine with aura History of kidney stones History of ovarian cancer Fatty liver Elevated HDL Diverticulosis Dermatofibroma History of basal cell carcinoma Mitral and aortic regurgitation Hypertension Home Medications ???Medication ???Instructions ???Recorded ???Last Taken ???Type vibegron 75 mg tablet (Gemtesa) 75 mg PO DAILY 12/19/22 Unknown Hi story lactobacillus combination no.9 4 4,000 mmu cells PO QDAY 09/21/24 U nknown History billion cell capsule (Adult 50 Plus Probiotic) multivitamin 1 tab PO QAM more content not included)... Normal [facility] Gastroenterology Visit Repor ton 09-22-2024 Gastroenterology Visit Report [facility] Gastroenterology [address] [place] [address] OFFICE VISIT Date of Service: 09/22/24 MR#: [id number] Acct: [id number] Name: GAVIOTA DAVIES Rep #: [id number] : 1955 Provider: CAMELIA duron Age/Sex: 69/F Location: [facility] Status: Signed Intake Vital Signs 12/19/22 12:42 09/22/24 13:57 Height 5 ft 6 in 5 ft 6 in Weight: 183 lb 6 oz BMI 29.5 BP 110/77 Respiration 16 Pulse 80 Temp 97.0 F L Temp Source Temporal Pulse Oximetry (%) 95 Oxygen Delivery Method room air Intake Visit Reasons: Chronic GERD Chief Complaint: GERD Disciplinary Hearing Officer Required: No Accompanied by: Self Is patient in pain?: No Allergies tolterodine (From Detrol) Adverse Reaction (Intermediate, Verified 09/21/24 12:00) buzzing in ears Medications ???Medication ???Instructions ???Recorded ???Confirmed ???Type vibegron 75 mg tablet (Gemtesa) 75 mg PO DAILY 12/19/22 09/22/24 H istory lactobacillus combination no.9 4 4,000 mmu cells PO QDAY 09/21/24 0 09/22/24 History billion cell capsule (Adult 50 Plus Probiotic) multivitamin 1 tab PO QAM 09/21/24 09/22/24 His tory naratriptan 1 mg tablet See Rx Instructions PO .COMPLEX AL N 09/21/24 09/22/24 History calcium 600 mg (as cap PO 09/22/24 09/22/24 History carbonate)-vitamin D3 12.5 mcg (500 unit) capsule (Calcium with Vit D3) esomeprazole magnesium 20 mg 30 mg PO QDAY 09/22/24 09/22/24 Hi story capsule,delayed release irbesartan 300 mg tablet 150 mg PO BID 09/22/24 09/22/24 Hi story semaglutide (weight loss) 1 mg/0.5 1 mg subcut QWEEK 09/22/2409/22 History mL subcutaneous pen injector (Wegovy) Have you fallen in the past year?: No PFSH Medical History (Updated 09/22/24 @ 14:02 by Jes Pace) Skin cancer Mitral valve prolapse Kidney stones Ovarian cancer UTI (urinary tract infection) Peripheral edema Migraine with aura History of kidney stones History of ovarian cancer Fatty liver Elevated HDL Diverticulosis Dermatofibroma History of basal cell carcinoma Mitral and aortic regurgitation Hypertension Surgical History History of esophagogastroduodenoscopy (EGD) H/O colonoscopy H/O wisdom tooth extraction History of tonsillectomy History of appendectomy History of total knee replacement H/O: hysterectomy H/O Achilles tendon repair Family History Mother Allergic rhinitis Alzheimer's dementia Asthma CHF (congestive heart failure) Cancer Lung DJD (degenerative joint disease) Heart disease Lymphoma Osteoporosis Father Cancer prostate and renal Hypertension Sister Cancer Depression Social History Smoking Status: Never smoker alcohol intake: current details: rare: 1 to 2 times a year substance use type: does not use what type of physical activity do you participate in: walking frequency: 5-6 times per week HPI HPI Chief Complaint: GERD Details: EGD 12/03/2016 ([facility]) normal appearing distal esophagus, gastric erythema, no PUD and no evidence of Daniels's; no biopsies obtained - on esomeprazole 20mg daily for a long time, PCP recently reduced her to 20mg daily - long h/o GERD, burning acid up to throat - symptoms are controlled with esomeprazole - reports stopping esomeprazole for 3 days caused increased HB - denies any family h/o esophageal or gastric CA - as long as she takes the PPI her symptoms are well controlled, unless she has trigger foods such as wine - decreased dose is controlling symptoms - some N/V with Wegovy - denies any dysphagia/globus sensation as long as she takes PPI - colonoscopy November 2023 at [place] - per patient this was unremarkable - MVP - denies any pulmonary or renal disease ROS Const Constitutional: No fatigue, fever(s) or weight change ENT ENT: No difficulty swallowing Gastro GI: No abdominal pain, belching, bloating, change in bowel habits, change in stool character, coffee ground emesis, constipation, cramping, diarrhea, heartburn, difficulty swallowing, feeling full early, excessive flatus, incontinent of stools, Vomiting blood/hematemesis, Blood in stool, loose stools, Black,tarry stools, nausea/dyspepsia, pain with swallowing, vomiting or other Musc Musculoskeletal: No joint pain Skin Skin: No yellowing of the eye or itchy eyes Psych Psychiatric: No anxiety and No depression Endo Endocrine: No fatigue or weight change Aller/Imm Allergy/Immunologic: No itchy eyes Varghese/Lymp Hematologic/Lymphatic: No easy bleeding or easy bruising Exam Const General: cooperative, healthy appearing, no acute distress and well deve (more content not included)... Normal [facility] US THYROIDon 09-07-2024 US THYROID ORIGINAL EXAMINATION: ULTRASOUND OF THE THYROID WITH COLOR DOPPLER FLOW EVALUATION09/04/2024 11:49 am Ultrasound Thyroid COMPARISON: None 12/12/2020 HISTORY: ORDERING SYSTEM PROVIDED HISTORY: Reason for Exam: thyroid enlargement, ORDERING SYSTEM PROVIDED HISTORY: Reason for Exam: thyroid enlargement, All images are recorded and archived. FINDINGS: Size right thyroid lobe: 4.8 x 1.5 x 1.7 cm Size left thyroid lobe: 4.0 x 1.2 x 1.2 cm Size isthmus: 0.2 cm Texture: Homogeneous Estimated total number of nodules greater than or equal to 1 cm: 3 Nodule #: # 1: Maximum size: 2.5 cm . All dimensions: 2.5 x 1.2 x 2.1 cm Location: Right Mid Composition: mixed cystic and solid: 1 point Echogenicity: isoechoic: 1 point Shape: wider than tall: 0 points Margins: smooth: 0 points Echogenic foci: none: 0 points ACR Total Points: 2; ACR TI-RADS risk category: TR2 - nonsuspicious nodule. Nodule #: # 2: Maximum size: 1.0 cm . Size: 1.0 x 0.8 x 0.9 cm Location: Right Lower Composition: solid or almost completely solid: 2 points Echogenicity: isoechoic: 1 point Shape: wider than tall: 0 points Margins: smooth: 0 points Echogenic foci: none: 0 points ACR Total Points: 3; ACR TI-RADS risk category: TR3 - mildly suspicious nodule. Nodule #: # 3: Maximum size: 0.5 cm . Size: 0.5 x 0.5 x 0.5 cm Location: Left Lower Composition: solid or almost completely solid: 2 points Echogenicity: hyperechoic: 1 point Shape: wider than tall: 0 points Margins: smooth: 0 points Echogenic foci: none: 0 points ACR Total Points: 2; ACR TI-RADS risk category: TR2 - nonsuspicious nodule. Additional benign cystic lesion measuring 0.7 x 0.3 x 0.3 is seen in the upper pole left thyroid lobe. All of the visualized nodules are essentially unchanged from prior study. IMPRESSION: 1. Nodule 1: ACR TI-RADS 2017 Category 2. Recommend: No further follow-up. 2. Nodule 2: ACR TI-RADS 2017 Category 3. Recommend: No further follow-up. 3. Nodule 3: ACR TI-RADS 2017 Category 2. Recommend: No further follow-up. ACR TI-RADS 2017 Recommendations: TR1(0 points) : No FNA or follow up TR2 (2 points) : No FNA or follow up TR3 (3 points) : FNA if >/= 2.5 cm, follow up if 1.5 - 2.4 cm in 1, 3, and 5 years TR4 (4-6 points) : FNA if >/= 1.5 cm, follow up if 1.0 - 1.4 cm in 1, 2, 3, and 5 years TR5 (>/= 7 points) : FNA if >/= 1.0 cm, follow up if 0.5 - 0.9 cm every year for 5 years *ACR TI-RADS recommends that no more than two nodules with the highest ACR TI-RADS total point should be biopsied and no more than four nodules should be followed. Interpreted by: Sergio Hinojosa DO Preliminary Report By: Sergio Hinojosa DO Electronically signed By Sergio Hinojosa DO Dictated Date: 09/07/2024 8:38:12 AM Prelim Date: 09/07/2024 8:46:29 AM Sign Date: 09/07/2024 8:46:29 AM Ordering Provider: BEAR Ro [facility] .Auto Diffon 09-02-2024 Basophil, Absolute 0.0 10 3/mcL Normal 0.0-0.3 [facility] Comment on above: Performed By: #### C BC, ANEU, LIPID, GFR, BMP, ADIFF #### [address] [address] Basophils/100 WBC (Bld) 0.6 % Normal 0.0-2.[address] [facility] Comment on above: Performed By: #### C BC, ANEU, LIPID, GFR, BMP, ADIFF #### [address] [address] Eosinophil, Absolute 0.0 10 3/mcL Normal 0.0-0.7 [facility] Comment on above: Performed By: #### C BC, ANEU, LIPID, GFR, BMP, ADIFF #### [address] [address] Eosinophils/100 WBC (Bld) 0.5 % Normal 0.0-6.[address] [facility] Comment on above: Performed By: #### C BC, ANEU, LIPID, GFR, BMP, ADIFF #### [address] [address] Lymphocyte, Absolute 1.5 10 3/mcL Normal 0.9-4.3 [facility] Comment on above: Performed By: #### C BC, ANEU, LIPID, GFR, BMP, ADIFF #### [address] [address] Lymphocytes/100 WBC (Bld) 25.5 % Normal 20.0-40.[address] [facility] Comment on above: Performed By: #### C BC, ANEU, LIPID, GFR, BMP, ADIFF #### [address] [address] Monocyte, Absolute 0.5 10 3/mcL Normal 0.1-1.4 [facility] Comment on above: Performed By: #### C BC, ANEU, LIPID, GFR, BMP, ADIFF #### [address] [address] Monocytes/100 WBC (Bld) 8.8 % Normal 2.0-13.[address] [facility] Comment on above: Performed By: #### C BC, ANEU, LIPID, GFR, BMP, ADIFF #### [address] [address] Neutrophils/100 WBC (Bld) 64.6 % Normal 50.0-75.[address] [facility] Comment on above: Performed By: #### C BC, ANEU, LIPID, GFR, BMP, ADIFF #### [address] [address] .GFRon 09-02-2024 Estimated Glomerular Filtration Rate 95 ml/min/1.73sqm Normal [facility] Comment on above: Result Comment: Stages of Chronic Kidney Disease (CKD) Stage Description eGFR(ml/min/1.73 sq.m.) CKD 1 Normal kidney function or >=90 normal kindney function with possible kidney damage (ex. Proteinuria) CKD 2 Kidney damage with mild loss 60-89 of kidney function CKD 3a Mild to moderate loss of kidney 45-59 function CKD 3b Moderate to severe loss of 30-44 of kindey function CKD 4 Severe loss of kidney function 15-29 CKD 5 Kidney failure <15 Note: (go live 2024) the eGFR calculation was updated to the 2020 CKD-EPI creatinine equation without a race factor to calculate the eGFR results. Performed By: #### C BC, ANEU, LIPID, GFR, BMP, ADIFF #### [address] [address] .NEUABSon 09-02-2024 Neutrophil, Absolute 3.9 10 3/mcL Normal 2.3-8.1 [facility] Comment on above: Performed By: #### C BC, ANEU, LIPID, GFR, BMP, ADIFF #### [address] [address] BMPon 09-02-2024 BUN/Creatinine Ratio 21 ratio Normal 7-27 [facility] Comment on above: Performed By: #### C BC, ANEU, LIPID, GFR, BMP, ADIFF #### [place] [address] Calcium [Mass/Vol] 9.5 mg/dL Normal 8.4-10.2 [facility] Comment on above: Performed By: #### C BC, ANEU, LIPID, GFR, BMP, ADIFF #### [place] [address] Chloride [Moles/Vol] 101 mmol/L Normal 98-107 [facility] Comment on above: Performed By: #### C BC, ANEU, LIPID, GFR, BMP, ADIFF #### [place] [address] CO2 [Moles/Vol] 28 mmol/L Normal 23-[address] [facility] Comment on above: Performed By: #### C BC, ANEU, LIPID, GFR, BMP, ADIFF #### [place] [address] Creatinine [Mass/Vol] 0.66 mg/dL Normal 0.51-0.[address] [facility] Comment on above: Performed By: #### C BC, ANEU, LIPID, GFR, BMP, ADIFF #### [place] [address] Electrolyte Balance 8.0 mEq/L Normal 4.0-15.0 [facility] Comment on above: Performed By: #### C BC, ANEU, LIPID, GFR, BMP, ADIFF #### [place] [address] Glucose [Mass/Vol] 89 mg/dL Normal 80-115 [facility] Comment on above: Performed By: #### C BC, ANEU, LIPID, GFR, BMP, ADIFF #### [place] [address] Potassium [Moles/Vol] 4.4 mmol/L Normal 3.5-5.[address] [facility] Comment on above: Performed By: #### C BC, ANEU, LIPID, GFR, BMP, ADIFF #### [address] [address] Sodium [Moles/Vol] 137 mmol/L Normal 136-145 [facility] Comment on above: Performed By: #### C BC, ANEU, LIPID, GFR, BMP, ADIFF #### [address] [address] Urea nitrogen [Mass/Vol] 14 mg/dL Normal 7-[address] [facility] Comment on above: Performed By: #### C BC, ANEU, LIPID, GFR, BMP, ADIFF #### [address] [address] CBCon 09-02-2024 Erythrocyte distribution width (RBC) [Ratio] 14.5 % Normal 11.5-15.[address] [facility] Comment on above: Performed By: #### C BC, ANEU, LIPID, GFR, BMP, ADIFF #### [place] [address] Hematocrit (Bld) [Volume fraction] 42.7 % Normal 34.0-46.[address] [facility] Comment on above: Performed By: #### C BC, ANEU, LIPID, GFR, BMP, ADIFF #### [place] [address] Hgb 14.1 G/dL Normal 12.0-16.[address] [facility] Comment on above: Performed By: #### C BC, ANEU, LIPID, GFR, BMP, ADIFF #### [place] [id number] MCH (RBC) [Entitic mass] 29.1 pg Normal 27.0-33.[address] [facility] Comment on above: Performed By: #### C BC, ANEU, LIPID, GFR, BMP, ADIFF #### [place] [address] MCHC 33.0 G/dL Normal 32.0-36.[address] [facility] Comment on above: Performed By: #### C BC, ANEU, LIPID, GFR, BMP, ADIFF #### [place] [id number] MCV (RBC) [Entitic vol] 88.2 fL Normal 80.0-99.[address] [facility] Comment on above: Performed By: #### C BC, ANEU, LIPID, GFR, BMP, ADIFF #### [place] [id number] [place], [place] [address] Platelet 222 10 3/mcL Normal 150-[address] [facility] Comment on above: Performed By: #### C BC, ANEU, LIPID, GFR, BMP, ADIFF #### [place] [id number] [place], [place] [address] Platelet mean volume (Bld) [Entitic vol] 9.6 fL Normal 6.6-10.[address] [facility] Comment on above: Performed By: #### C BC, ANEU, LIPID, GFR, BMP, ADIFF #### [id number] [place], [place] [address] RBC 4.84 10 6/mcL Normal 4.10-5.[address] [facility] Comment on above: Performed By: #### C BC, ANEU, LIPID, GFR, BMP, ADIFF #### [address] [address] WBC 6.1 10 3/mcL Normal 4.5-10.[address] [facility] Comment on above: Performed By: #### C BC, ANEU, LIPID, GFR, BMP, ADIFF #### [address] [address] LABORATORYOrdered By: SYSTEM SYSTEM on 09-02-2024 Basophils (Bld) [#/Vol] 0.0 103/mcL Normal 0.0 - 0.3 10^3/mcL AO Workflow SS Basophils/100 WBC (Bld) 0.6 % Normal 0.0 - 2.5 % AO Workflow SS Calcium [Mass/Vol] 9.5 mg/dL Normal 8.4 - 10. 2 mg/dL AO ADM SS Chloride [Moles/Vol] 101 mmol/L Normal 98 - 10 7 mmol/L AO ADM SS CO2 [Moles/Vol] 28 mmol/L Normal 23 - 31 mmol/L AO ADM SS Creatinine [Mass/Vol] 0.66 mg/dL Normal 0.51 - 0.95 mg/dL AO ADM SS Electrolyte Balance 8.0 mEq/L Normal 4.0 - 15 .0 mEq/L AO ADM SS Eosinophil, Absolute 0.0 103/mcL Normal 0.0 - 0 .7 10^3/mcL AO Workflow SS Eosinophils/100 WBC (Bld) 0.5 % Normal 0.0 - 6.0 % AO Workflow SS Erythrocyte distribution width (RBC) [Ratio] 14.5 % Normal 11.5 - 15.5 % AO Workflow SS Estimated Glomerular Filtration Rate 95 ml/min/1.73sqm Invalid Interpretation Code AO Chemistry S Comment on above: Interpretive Data: Stages of Chronic Kidney Disease (CKD) Stage Description eGFR(ml/min/1.73 sq.m.) CKD 1 Normal kidney function or >=90 normal kindney function with possible kidney damage (ex. Proteinuria) CKD 2 Kidney damage with mild loss 60-89 of kidney function CKD 3a Mild to moderate loss of kidney 45-59 function CKD 3b Moderate to severe loss of 30-44 of kindey function CKD 4 Severe loss of kidney function 15-29 CKD 5 Kidney failure <15 Note: (go live 2024) the eGFR calculation was updated to the 2020 CKD-EPI creatinine equation without a race factor to calculate the eGFR results. Glucose [Mass/Vol] 89 mg/dL Normal 80 - 115 mg/dL AO ADM SS Hematocrit (Bld) [Volume fraction] 42.7 % Normal 34.0 - 46.0 % AO Workflow SS Hemoglobin (Bld) [Mass/Vol] 14.1 G/dL Normal 12.0 - 16.0 G/dL AO Workflow SS Lymphocytes (Bld) [#/Vol] 1.5 103/mcL Normal 0.9 - 4.3 10^3/mcL AO Workflow SS Lymphocytes/100 WBC (Bld) 25.5 % Normal 20.0 - 40.0 % AO Workflow SS MCH (RBC) [Entitic mass] 29.1 pg Normal 27.0 - 33.0 pg AO Workflow SS MCHC 33.0 G/dL Normal 32.0 - 36.0 G/dL AO Workflow SS MCV (RBC) [Entitic vol] 88.2 fL Normal 80.0 - 99.0 fL AO Workflow SS Monocytes (Bld) [#/Vol] 0.5 103/mcL Normal 0.1 - 1.4 10^3/mcL AO Workflow SS Monocytes/100 WBC (Bld) 8.8 % Normal 2.0 - 13.0 % AO Workflow SS Neutrophils (Bld) [#/Vol] 3.9 103/mcL Normal 2.3 - 8.1 10^3/mcL AO Workflow SS Neutrophils/100 WBC (Bld) 64.6 % Normal 50.0 - 75.0 % AO Workflow SS Platelet mean volume (Bld) [Entitic vol] 9.6 fL Normal 6.6 - 10.5 fL AO Workflow SS Platelets (Bld) [#/Vol] 222 103/mcL Normal 150 - 450 10^3/mcL AO Workflow SS Potassium [Moles/Vol] 4.4 mmol/L Normal 3.5 - 5.1 mmol/L AO ADM SS RBC (Bld) [#/Vol] 4.84 106/mcL Normal 4.10 - 5.30 10^6/mcL AO Workflow SS Sodium [Moles/Vol] 137 mmol/L Normal 136 - 145 mmol/L AO ADM SS Urea nitrogen [Mass/Vol] 14 mg/dL Normal 7 - 18 mg/dL AO ADM SS Urea nitrogen/Creatinine [Mass ratio] 21 ratio Normal 7 - 27 ratio AO ADM SS WBC (Bld) [#/Vol] 6.1 103/mcL Normal 4.5 - 10.8 10^3/mcL AO Workflow SS LABORATORYOrdered By: Carin Huff on 09-02-2024 Cholesterol [Mass/Vol] 162 mg/dL Normal 0 - 200 mg/dL AO ADM SS Comment on above: Interpretive Data: C holesterol Reference Interval: Less than 200 Desirable 200-239 Borderline high risk 240 and above High risk Cholesterol in HDL [Mass/Vol] 53 mg/dL Normal 40 - 60 mg/dL AO ADM SS Cholesterol in LDL [Mass/Vol] 93 mg/dL Normal 0 - 130 mg/dL AO ADM SS Triglyceride [Mass/Vol] 78 mg/dL Normal 0 - 150 mg/dL AO ADM SS Comment on above: Interpretive Data: T riglyceride Reference Interval: Less than 150 Normal 150-199 Borderline high risk 200-499 High risk 500 or higher Very high risk LIPIDon 09-02-2024 Cholesterol [Mass/Vol] 162 mg/dL Normal 0-[address] [facility] Comment on above: Result Comment: Chol esterol Reference Interval: Less than 200 Desirable 200-239 Borderline high risk 240 and above High risk Performed By: #### C BC, ANEU, LIPID, GFR, BMP, ADIFF #### [address] [address] Cholesterol in HDL [Mass/Vol] 53 mg/dL Normal 40-[address] [facility] Comment on above: Performed By: #### C BC, ANEU, LIPID, GFR, BMP, ADIFF #### [address] [address] Cholesterol in LDL [Mass/Vol] 93 mg/dL Normal 0-[address] [facility] Comment on above: Performed By: #### C BC, ANEU, LIPID, GFR, BMP, ADIFF #### [place] [id number] Triglyceride [Mass/Vol] 78 mg/dL Normal 0-[address] [facility] Comment on above: Result Comment: Trig lyceride Reference Interval: Less than 150 Normal 150-199 Borderline high risk 200-499 High risk 500 or higher Very high risk Performed By: #### C BC, ANEU, LIPID, GFR, BMP, ADIFF #### [address] [address] .GFRon 03-03-2024 GFR 87 ml/min/1.73sqm Normal [facility] Comment on above: Result Comment: GFR Population mean for , Non- Americans Ages 20-29 = 116 mL/min/1.73 sq.m. Ages 30-39 = 107 mL/min/1.73 sq.m. Ages 40-49 = 99 mL/min/1.73 sq.m. Ages 50-59 = 93 mL/min/1.73 sq.m. Ages 60-69 = 85 mL/min/1.73 sq.m. Ages 70+ = 75 mL/min/1.73 sq.m. Chronic Kidney Disease: Less than 60 mL/min/1.73 square meters End Stage Renal Disease: Less than 15 mL/min/1.73 square meters Performed By: #### C MP, GFR #### [address] [address] GFR Non- 72 ml/min/1.73sqm Normal [facility] Comment on above: Result Comment: GFR Population mean for , Non- Americans Ages 20-29 = 116 mL/min/1.73 sq.m. Ages 30-39 = 107 mL/min/1.73 sq.m. Ages 40-49 = 99 mL/min/1.73 sq.m. Ages 50-59 = 93 mL/min/1.73 sq.m. Ages 60-69 = 85 mL/min/1.73 sq.m. Ages 70+ = 75 mL/min/1.73 sq.m. Chronic Kidney Disease: Less than 60 mL/min/1.73 square meters End Stage Renal Disease: Less than 15 mL/min/1.73 square meters Performed By: #### C MP, GFR #### [address] [address] CMPon 03-03-2024 Albumin Level 3.6 G/dL Normal 3.4-4.[address] [facility] Comment on above: Performed By: #### C MP, GFR #### [address] [address] Albumin/Globulin [Mass ratio] 0.9 {ratio} Low 1.1-2.[address] [facility] Comment on above: Performed By: #### C MP, GFR #### [address] [address] ALP [Catalytic activity/Vol] 106 U/L Normal 40-[address] [facility] Comment on above: Performed By: #### C MP, GFR #### [address] [address] ALT [Catalytic activity/Vol] 23 U/L Normal 14-[address] [facility] Comment on above: Performed By: #### C MP, GFR #### [address] [address] AST [Catalytic activity/Vol] 27 U/L Normal 10-[address] [facility] Comment on above: Performed By: #### C MP, GFR #### [address] [address] Bili Total 0.3 mg/dL Normal 0.2-1.[address] [facility] Comment on above: Result Comment: Use of this assay is not recommended for patients undergoing treatment with eltrombopag due to the potential for falsely elevated results. Performed By: #### C MP, GFR #### [address] [address] BUN/Creatinine Ratio 20 ratio Normal 7-27 [facility] Comment on above: Performed By: #### C MP, GFR #### [place] [address] Calcium [Mass/Vol] 9.9 mg/dL Normal 8.4-10.2 [facility] Comment on above: Performed By: #### C MP, GFR #### [place] [address] Chloride [Moles/Vol] 102 mmol/L Normal 98-107 [facility] Comment on above: Performed By: #### C MP, GFR #### [place] [address] CO2 [Moles/Vol] 28 mmol/L Normal 23-[address] [facility] Comment on above: Performed By: #### C MP, GFR #### [address] [address] Creatinine [Mass/Vol] 0.80 mg/dL Normal 0.55-1.[address] [facility] Comment on above: Result Comment: Test ing performed on Siemens Dimension EXL analyzer using a modified kinetic Radha technique. Performed By: #### C MP, GFR #### [address] [address] Electrolyte Balance 9.0 mEq/L Normal 4.0-15.0 [facility] Comment on above: Performed By: #### C MP, GFR #### [place] [address] Globulin 3.8 G/dL Normal [facility] Comment on above: Performed By: #### C MP, GFR #### [address] [address] Glucose [Mass/Vol] 94 mg/dL Normal 80-115 [facility] Comment on above: Performed By: #### C MP, GFR #### [address] [address] Potassium [Moles/Vol] 4.4 mmol/L Normal 3.5-5.[address] [facility] Comment on above: Performed By: #### C MP, GFR #### [address] [address] Sodium [Moles/Vol] 139 mmol/L Normal 136-145 [facility] Comment on above: Performed By: #### C MP, GFR #### [address] [address] Total Protein 7.4 G/dL Normal 6.4-8.[address] [facility] Comment on above: Performed By: #### C MP, GFR #### [address] [address] Urea nitrogen [Mass/Vol] 16 mg/dL Normal 7-[address] [facility] Comment on above: Performed By: #### C MP, GFR #### [address] [address] LABORATORYOrdered By: SYSTEM SYSTEM on 03-03-2024 Albumin BCP dye [Mass/Vol] 3.6 G/dL Normal 3.4 - 4.8 G/dL AO ADM SS Albumin/Globulin [Mass ratio] 0.9 {ratio} Low 1.1 - 2.5 ratio AO ADM SS ALP [Catalytic activity/Vol] 106 U/L Normal 40 - 135 U/L AO ADM SS ALT With P-5'-P [Catalytic activity/Vol] 23 U/L Normal 14 - 59 U/L AO ADM SS AST With P-5'-P [Catalytic activity/Vol] 27 U/L Normal 10 - 40 U/L AO ADM SS Bilirubin [Mass/Vol] 0.3 mg/dL Normal 0.2 - 1 .0 mg/dL AO ADM SS Comment on above: Interpretive Data: U se of this assay is not recommended for patients undergoing treatment with eltrombopag due to the potential for falsely elevated results. Calcium [Mass/Vol] 9.9 mg/dL Normal 8.4 - 10. 2 mg/dL AO ADM SS Chloride [Moles/Vol] 102 mmol/L Normal 98 - 10 7 mmol/L AO ADM SS CO2 [Moles/Vol] 28 mmol/L Normal 23 - 31 mmol/L AO ADM SS Creatinine [Mass/Vol] 0.80 mg/dL Normal 0.55 - 1.02 mg/dL AO ADM SS Comment on above: Interpretive Data: T esting performed on Siemens Dimension EXL analyzer using a modified kinetic Radha technique. Electrolyte Balance 9.0 mEq/L Normal 4.0 - 15 .0 mEq/L AO ADM SS GFR/1.73 sq M.predicted among blacks MDRD (S/P/Bld) [Vol rate/Area] 87 ml/min/1.73sqm Invalid Interpretation Code AO Chemistry S Comment on above: Interpretive Data: GFR Population mean for , Non- Americans Ages 20-29 = 116 mL/min/1.73 sq.m. Ages 30-39 = 107 mL/min/1.73 sq.m. Ages 40-49 = 99 mL/min/1.73 sq.m. Ages 50-59 = 93 mL/min/1.73 sq.m. Ages 60-69 = 85 mL/min/1.73 sq.m. Ages 70+ = 75 mL/min/1.73 sq.m. Chronic Kidney Disease: Less than 60 mL/min/1.73 square meters End Stage Renal Disease: Less than 15 mL/min/1.73 square meters GFR/1.73 sq M.predicted among non-blacks MDRD (S/P/Bld) [Vol rate/Area] 72 ml/min/1.73sqm Invalid Interpretation Code AO Chemistry S Comment on above: Interpretive Data: GFR Population mean for , Non- Americans Ages 20-29 = 116 mL/min/1.73 sq.m. Ages 30-39 = 107 mL/min/1.73 sq.m. Ages 40-49 = 99 mL/min/1.73 sq.m. Ages 50-59 = 93 mL/min/1.73 sq.m. Ages 60-69 = 85 mL/min/1.73 sq.m. Ages 70+ = 75 mL/min/1.73 sq.m. Chronic Kidney Disease: Less than 60 mL/min/1.73 square meters End Stage Renal Disease: Less than 15 mL/min/1.73 square meters Globulin 3.8 G/dL Invalid Interpretation Code AO ADM SS Glucose [Mass/Vol] 94 mg/dL Normal 80 - 115 mg/dL AO ADM SS Potassium [Moles/Vol] 4.4 mmol/L Normal 3.5 - 5.1 mmol/L AO ADM SS Protein [Mass/Vol] 7.4 G/dL Normal 6.4 - 8.2 G/dL AO ADM SS Sodium [Moles/Vol] 139 mmol/L Normal 136 - 145 mmol/L AO ADM SS Urea nitrogen [Mass/Vol] 16 mg/dL Normal 7 - 18 mg/dL AO ADM SS Urea nitrogen/Creatinine [Mass ratio] 20 ratio Normal 7 - 27 ratio AO ADM SS LABORATORYOrdered By: Denice Atkins on 03-03-2024 Albumin DL <= 20 mg/L (U) [Mass/Vol] 417 mcg/dL Invalid Interpretation Code AO ADM SS Albumin/Creatinine DL <= 20 mg/L (U) [Mass ratio] 6 mcg/mg Normal 0 - 30 mcg/mg AO Chemistry S Creatinine (U) [Mass/Vol] 66.0 mg/dL Invalid Interpretation Code AO ADM SS MALBRon 03-03-2024 U Creatinine 66.0 mg/dL Normal [facility] Comment on above: Performed By: #### M ALBR ####[address] [place], [place] [address] U Microalb 417 mcg/dL Normal [facility] Comment on above: Performed By: #### M ALBR ####[facility] [place], [place] [address] U Ratio Alb/Cre 6 mcg/mg Normal 0-[address] [facility] Comment on above: Performed By: #### M ALBR ####[facility] [place], [place] [address] MA MAMMOGRAM SCREENING BILAT ERAL W/TOMOon 01-16-2024 MA MAMMOGRAM SCREENING BILATERAL W/FERNANDO ORIGINAL FROM: [address] [place] [address] PROCEDURE FOR: GAVIOTA DAVIES [address] [facility] [place] [address] Home: PID#: [id number] Exam#: [id number] : 1955 Age: 68 TO: BEAR HAINES DO [address] [place], [place] [address] Fax: NO FAX EXAMINATION: SCREENING DIGITAL BILATERAL MAMMOGRAM WITH TOMOSYNTHESIS, 01/13/2024 2:13 pm TECHNIQUE: Screening mammography of the bilateral breasts was performed with tomosynthesis. 2D standard and 3D tomosynthesis combination imaging performed through both breasts in the MLO and CC projection. Computer aided detection was utilized in the interpretation of this exam. COMPARISON: 01/07/2023, 12/28/2021 HISTORY: Breast cancer screening. FINDINGS: BREAST DENSITY: The breasts are heterogeneously dense, which may obscure small masses. There are benign appearing calcifications in both breasts. There are no significant masses or calcifications. IMPRESSION: No mammographic evidence of malignancy. Continued screening with annual mammograms is recommended. Tyrer Cuzick risk calculations, generated with the history provided, report this patient's 10 year risk and lifetime risk for developing breast cancer at 4.7% and 9.0%, respectively. Based on this assessment tool, if the patient's calculated lifetime risk is below 20%, then the patient is considered at average risk for developing breast cancer. If the patient's calculated lifetime risk is at or above 20%, then the patient is considered high risk for developing breast cancer and may be a candidate for supplemental breast MRI screening in addition to annual mammographic screening per the [employer]. BIRADS: BI-RADS: 2: Benign RECALL: 1 year screening RECALL TYPE: mammo LETTER SENT: Normal BI-RADS 1 and 2 Interpreted by: Delta Cook MD Preliminary Report By: Delta Cook MD Electronically signed By Delta Cook MD Dictated Date: 01/16/2024 12:53:42 PM Prelim Date: 01/16/2024 12:55:26 PM Sign Date: 01/16/2024 12:55:26 PM Ordering Provider: BEAR HAINES [employer] Layer: NATHANAEL NELSON RT(R)(M)(CT) letter sent: Normal BI-RADS 1 and 2 Mammogram BI-RADS: 2 Benign [address] [facility] BD BONE DENSITY DEXA AXIAL S Fernanda 09-10-2023 BD BONE DENSITY DEXA AXIAL SKELETON ORIGINAL EXAMINATION: BONE DENSITOMETRY 09/10/2023 11:37 am TECHNIQUE: A bone density dual x-ray absorptiometry (DEXA) scan was performed of the lumbar spine and left hip on a [employer] system. COMPARISON: 08/15/2021 HISTORY: ORDERING SYSTEM PROVIDED HISTORY: Reason for Exam: Osteoporosis Screening SCREENING Postmenopausal FINDINGS: LEFT HIP: The bone mineral density in the total hip is measured at 0.996 g/cm2 corresponding to a T-score of 0.4. This is within the normal range by WHO criteria. Change from prior: 2.0% increase. The bone mineral density of the femoral neck is measured at 0.781 g/cm2 corresponding to a T-score of -0.6. This is within the normal range by WHO criteria. Lumbar spine: The bone mineral density of the lumbar spine, L1 through L4 is measured at 1.132 g/cm2 corresponding to a T-score of 0.8. This is within the normal range by WHO criteria. Change from prior: 0.8% increase. 10 year fracture Risk: FRAX not reported because all T-scores for the total hip, spine or femoral neck are measured at or above -1.0. IMPRESSION: Normal DEXA study by WHO criteria. Interpreted by: Maria Del Rosario Monahan Preliminary Report By: Maria Del Rosario Monahan Electronically signed By Maria Del Rosario Monahan Dictated Date: 09/10/2023 12:17:48 PM Prelim Date: 09/10/2023 12:20:09 PM Sign Date: 09/10/2023 12:20:09 PM Ordering Provider: BEAR HAINES Normal [facility] ([place]) .GFRon 08-30-2023 GFR 89 ml/min/1.73sqm Normal [facility] ([place]) Comment on above: Result Comment: GFR Population mean for , Non- Americans Ages 20-29 = 116 mL/min/1.73 sq.m. Ages 30-39 = 107 mL/min/1.73 sq.m. Ages 40-49 = 99 mL/min/1.73 sq.m. Ages 50-59 = 93 mL/min/1.73 sq.m. Ages 60-69 = 85 mL/min/1.73 sq.m. Ages 70+ = 75 mL/min/1.73 sq.m. Chronic Kidney Disease: Less than 60 mL/min/1.73 square meters End Stage Renal Disease: Less than 15 mL/min/1.73 square meters Performed By: #### C BC, ADIFF, ANEU, BMP, ALB, GFR, ABOGEL, ABSGEL #### [address] [address] GFR Non- 74 ml/min/1.73sqm Normal [facility] ([place]) Comment on above: Result Comment: GFR Population mean for , Non- Americans Ages 20-29 = 116 mL/min/1.73 sq.m. Ages 30-39 = 107 mL/min/1.73 sq.m. Ages 40-49 = 99 mL/min/1.73 sq.m. Ages 50-59 = 93 mL/min/1.73 sq.m. Ages 60-69 = 85 mL/min/1.73 sq.m. Ages 70+ = 75 mL/min/1.73 sq.m. Chronic Kidney Disease: Less than 60 mL/min/1.73 square meters End Stage Renal Disease: Less than 15 mL/min/1.73 square meters Performed By: #### C BC, ADIFF, ANEU, BMP, ALB, GFR, ABOGEL, ABSGEL #### [address] [address] BMPon 08-30-2023 BUN/Creatinine Ratio 19 ratio Normal 7-27 [facility] ([place]) Comment on above: Performed By: #### L IPID, BMP, GFR #### [address] [address] Calcium [Mass/Vol] 9.2 mg/dL Normal 8.4-10.2 [facility] ([place]) Comment on above: Performed By: #### L IPID, BMP, GFR #### [address] [address] Chloride [Moles/Vol] 100 mmol/L Normal 98-107 [facility] ([place]) Comment on above: Performed By: #### L IPID, BMP, GFR #### [address] [address] CO2 [Moles/Vol] 31 mmol/L Normal 23-31 [facility] ([place]) Comment on above: Performed By: #### L IPID, BMP, GFR #### [address] [address] Creatinine [Mass/Vol] 0.78 mg/dL Normal 0.55-1.02 [facility] ([place]) Comment on above: Performed By: #### L IPID, BMP, GFR #### [address] [address] Electrolyte Balance 6.0 mEq/L Normal 4.0-15.0 [facility] ([place]) Comment on above: Performed By: #### L IPID, BMP, GFR #### [address] [address] Glucose [Mass/Vol] 88 mg/dL Normal 80-115 [facility] ([place]) Comment on above: Performed By: #### L IPID, BMP, GFR #### [address] [address] Potassium [Moles/Vol] 4.4 mmol/L Normal 3.5-5.1 [facility] ([place]) Comment on above: Performed By: #### L IPID, BMP, GFR #### [address] [address] Sodium [Moles/Vol] 137 mmol/L Normal 136-145 [facility] ([place]) Comment on above: Performed By: #### L IPID, BMP, GFR #### [address] [address] Urea nitrogen [Mass/Vol] 15 mg/dL Normal 7-18 [facility] ([place]) Comment on above: Performed By: #### L IPID, BMP, GFR #### [address] [address] LABORATORYOrdered By: SYSTEM SYSTEM on 08-30-2023 Calcium [Mass/Vol] 9.2 mg/dL Normal 8.4 - 10. 2 mg/dL AO ADM SS Chloride [Moles/Vol] 100 mmol/L Normal 98 - 10 7 mmol/L AO ADM SS CO2 [Moles/Vol] 31 mmol/L Normal 23 - 31 mmol/L AO ADM SS Creatinine [Mass/Vol] 0.78 mg/dL Normal 0.55 - 1.02 mg/dL AO ADM SS Electrolyte Balance 6.0 mEq/L Normal 4.0 - 15 .0 mEq/L AO ADM SS GFR/1.73 sq M.predicted among blacks MDRD (S/P/Bld) [Vol rate/Area] 89 ml/min/1.73sqm Invalid Interpretation Code AO Chemistry S Comment on above: Interpretive Data: GFR Population mean for , Non- Americans Ages 20-29 = 116 mL/min/1.73 sq.m. Ages 30-39 = 107 mL/min/1.73 sq.m. Ages 40-49 = 99 mL/min/1.73 sq.m. Ages 50-59 = 93 mL/min/1.73 sq.m. Ages 60-69 = 85 mL/min/1.73 sq.m. Ages 70+ = 75 mL/min/1.73 sq.m. Chronic Kidney Disease: Less than 60 mL/min/1.73 square meters End Stage Renal Disease: Less than 15 mL/min/1.73 square meters GFR/1.73 sq M.predicted among non-blacks MDRD (S/P/Bld) [Vol rate/Area] 74 ml/min/1.73sqm Invalid Interpretation Code AO Chemistry S Comment on above: Interpretive Data: GFR Population mean for , Non- Americans Ages 20-29 = 116 mL/min/1.73 sq.m. Ages 30-39 = 107 mL/min/1.73 sq.m. Ages 40-49 = 99 mL/min/1.73 sq.m. Ages 50-59 = 93 mL/min/1.73 sq.m. Ages 60-69 = 85 mL/min/1.73 sq.m. Ages 70+ = 75 mL/min/1.73 sq.m. Chronic Kidney Disease: Less than 60 mL/min/1.73 square meters End Stage Renal Disease: Less than 15 mL/min/1.73 square meters Glucose [Mass/Vol] 88 mg/dL Normal 80 - 115 mg/dL AO ADM SS Potassium [Moles/Vol] 4.4 mmol/L Normal 3.5 - 5.1 mmol/L AO ADM SS Sodium [Moles/Vol] 137 mmol/L Normal 136 - 145 mmol/L AO ADM SS Urea nitrogen [Mass/Vol] 15 mg/dL Normal 7 - 18 mg/dL AO ADM SS Urea nitrogen/Creatinine [Mass ratio] 19 ratio Normal 7 - 27 ratio AO ADM SS LABORATORYOrdered By: Katerine Miller on 08-30-2023 Cholesterol [Mass/Vol] 181 mg/dL Normal 0 - 200 mg/dL AO ADM SS Comment on above: Interpretive Data: C holesterol Reference Interval: Less than 200 Desirable 200-239 Borderline high risk 240 and above High risk Cholesterol in HDL [Mass/Vol] 59 mg/dL Normal 40 - 60 mg/dL AO ADM SS Cholesterol in LDL [Mass/Vol] 94 mg/dL Normal 0 - 130 mg/dL AO ADM SS Triglyceride [Mass/Vol] 139 mg/dL Normal 0 - 150 mg/dL AO ADM SS Comment on above: Interpretive Data: T riglyceride Reference Interval: Less than 150 Normal 150-199 Borderline high risk 200-499 High risk 500 or higher Very high risk LIPIDon 08-30-2023 Cholesterol [Mass/Vol] 181 mg/dL Normal 0-200 [facility] ([place]) Comment on above: Result Comment: Chol esterol Reference Interval: Less than 200 Desirable 200-239 Borderline high risk 240 and above High risk Performed By: #### C BC, ADIFF, ANEU, BMP, ALB, GFR, ABOGEL, ABSGEL #### [id number] [place], [place] [address] Cholesterol in HDL [Mass/Vol] 59 mg/dL Normal 40-60 [facility] ([place]) Comment on above: Performed By: #### C BC, ADIFF, ANEU, BMP, ALB, GFR, ABOGEL, ABSGEL #### [facility] [address] [place], [place] [address] Cholesterol in LDL [Mass/Vol] 94 mg/dL Normal 0-130 [facility] ([place]) Comment on above: Performed By: #### C BC, ADIFF, ANEU, BMP, ALB, GFR, ABOGEL, ABSGEL #### [address] [address] Triglyceride [Mass/Vol] 139 mg/dL Normal 0-150 [facility] ([place]) Comment on above: Result Comment: Trig lyceride Reference Interval: Less than 150 Normal 150-199 Borderline high risk 200-499 High risk 500 or higher Very high risk Performed By: #### C BC, ADIFF, ANEU, BMP, ALB, GFR, ABOGEL, ABSGEL #### [address] [address] ABO/Rh (Gel)on 06-25-2023 ABO/Rh Interp Positive Invalid Interpretation Code [facility] ([place]) Comment on above: Performed By: #### C BC, ADIFF, ANEU, BMP, ALB, GFR, ABOGEL, ABSGEL #### [address] [address] ABS (Gel)on 06-25-2023 ABSC Interp (Gel) Negative Normal [facility] ([place]) Comment on above: Performed By: #### C BC, ADIFF, ANEU, BMP, ALB, GFR, ABOGEL, ABSGEL #### [address] [address] LABORATORYOrdered By: Pedro Bowers on 06-25-2023 ABO and Rh group Nom (Bld) Blood group O Rh(D) positive Invalid Interpretation Code AO BB Auto SS Blood group antibody screen Ql Negative ABSC (06/25/23 6:12 AM) Normal AO BB Auto SS XR KNEE 1 OR 2 VIEWS RIGHTon 06-25-2023 XR KNEE 1 OR 2 VIEWS RIGHT ORIGINAL EXAMINATION: POSTOPERATIVE KNEE TECHNIQUE: 2 views of theright knee were obtained. COMPARISON: CT right knee 06/03/2023 HISTORY: ORDERING SYSTEM PROVIDED HISTORY: Reason for Exam: Status Post Arthroplasty FINDINGS: There is normal mineralization. No acute fracture or dislocation is seen. The patient is status post right knee replacement with appropriate positioning of the prosthesis. There are postsurgical changes with a small joint effusion. IMPRESSION: Status post right knee replacement with appropriate positioning of the prosthesis. Interpreted by: Amber Sparrow MD Preliminary Report By: Amber Sparrow MD Electronically signed By Amber Sparrow MD Dictated Date: 06/25/2023 9:08:24 AM Prelim Date: 06/25/2023 9:10:55 AM Sign Date: 06/25/2023 9:10:55 AM Ordering Provider: EMILI Ro [facility] ([place]) .Auto Diffon 06-03-2023 Basophil, Absolute 0.1 10 3/mcL Normal 0.0-0.2 [facility] ([place]) Comment on above: Performed By: #### C BC, ADIFF, ANEU, BMP, ALB, GFR, ABOGEL, ABSGEL #### [address] [address] Basophils/100 WBC (Bld) 0.8 % Normal 0.0-2.5 [facility] ([place]) Comment on above: Performed By: #### C BC, ADIFF, ANEU, BMP, ALB, GFR, ABOGEL, ABSGEL #### [address] [address] Eosinophil, Absolute 0.0 10 3/mcL Normal 0.0-0.4 [facility] ([place]) Comment on above: Performed By: #### C BC, ADIFF, ANEU, BMP, ALB, GFR, ABOGEL, ABSGEL #### [address] [address] Eosinophils/100 WBC (Bld) 0.4 % Normal 0.0-7.0 [facility] ([place]) Comment on above: Performed By: #### C BC, ADIFF, ANEU, BMP, ALB, GFR, ABOGEL, ABSGEL #### [address] [address] Lymphocyte, Absolute 2.0 10 3/mcL Normal 0.8-3.9 [facility] ([place]) Comment on above: Performed By: #### C BC, ADIFF, ANEU, BMP, ALB, GFR, ABOGEL, ABSGEL #### [address] [address] Lymphocytes/100 WBC (Bld) 28.3 % Normal 10.0-50.0 [facility] ([place]) Comment on above: Performed By: #### C BC, ADIFF, ANEU, BMP, ALB, GFR, ABOGEL, ABSGEL #### [address] [address] Monocyte, Absolute 0.5 10 3/mcL Normal 0.2-1.0 [facility] ([place]) Comment on above: Performed By: #### C BC, ADIFF, ANEU, BMP, ALB, GFR, ABOGEL, ABSGEL #### [address] [address] Monocytes/100 WBC (Bld) 6.5 % Normal 1.7-13.0 [facility] ([place]) Comment on above: Performed By: #### C BC, ADIFF, ANEU, BMP, ALB, GFR, ABOGEL, ABSGEL #### [address] [address] Neutrophils/100 WBC (Bld) 64.0 % Normal 37.0-80.0 [facility] ([place]) Comment on above: Performed By: #### C BC, ADIFF, ANEU, BMP, ALB, GFR, ABOGEL, ABSGEL #### [address] [address] .GFRon 06-03-2023 GFR Non- 69 ml/min/1.73sqm Normal [facility] ([place]) Comment on above: Result Comment: GFR Population mean for , Non- Americans Ages 20-29 = 116 mL/min/1.73 sq.m. Ages 30-39 = 107 mL/min/1.73 sq.m. Ages 40-49 = 99 mL/min/1.73 sq.m. Ages 50-59 = 93 mL/min/1.73 sq.m. Ages 60-69 = 85 mL/min/1.73 sq.m. Ages 70+ = 75 mL/min/1.73 sq.m. Chronic Kidney Disease: Less than 60 mL/min/1.73 square meters End Stage Renal Disease: Less than 15 mL/min/1.73 square meters Performed By: #### C BC, ADIFF, ANEU, BMP, ALB, GFR, ABOGEL, ABSGEL #### [address] [address] GFR 83 ml/min/1.73sqm Normal [facility] ([place]) Comment on above: Result Comment: GFR Population mean for , Non- Americans Ages 20-29 = 116 mL/min/1.73 sq.m. Ages 30-39 = 107 mL/min/1.73 sq.m. Ages 40-49 = 99 mL/min/1.73 sq.m. Ages 50-59 = 93 mL/min/1.73 sq.m. Ages 60-69 = 85 mL/min/1.73 sq.m. Ages 70+ = 75 mL/min/1.73 sq.m. Chronic Kidney Disease: Less than 60 mL/min/1.73 square meters End Stage Renal Disease: Less than 15 mL/min/1.73 square meters Performed By: #### C BC, ADIFF, ANEU, BMP, ALB, GFR, ABOGEL, ABSGEL #### [address] [address] .NEUABSon 06-03-2023 Neutrophil, Absolute 4.5 10 3/mcL Normal 2.9-6.2 [facility] ([place]) Comment on above: Performed By: #### C BC, ADIFF, ANEU, BMP, ALB, GFR, ABOGEL, ABSGEL #### [address] [address] ABO/Rh (Gel)on 06-03-2023 ABO/Rh Interp Positive Invalid Interpretation Code [facility] ([place]) Comment on above: Order Comment: SURG ANGELINA 5/14 -AC Performed By: #### C BC, ADIFF, ANEU, BMP, ALB, GFR, ABOGEL, ABSGEL #### [address] [address] ABS (Gel)on 06-03-2023 ABSC Interp (Gel) Negative Normal [facility] ([place]) Comment on above: Order Comment: SURG ANGELINA 5/14 -AC Performed By: #### C BC, ADIFF, ANEU, BMP, ALB, GFR, ABOGEL, ABSGEL #### [address] [address] ALBon 06-03-2023 Albumin Level 3.9 G/dL Normal 3.4-4.8 [facility] ([place]) Comment on above: Performed By: #### C BC, ADIFF, ANEU, BMP, ALB, GFR, ABOGEL, ABSGEL #### [address] [address] BMPon 06-03-2023 BUN/Creatinine Ratio 20 ratio Normal 7-27 [facility] ([place]) Comment on above: Performed By: #### C BC, ADIFF, ANEU, BMP, ALB, GFR, ABOGEL, ABSGEL #### [place] [id number] Calcium [Mass/Vol] 9.5 mg/dL Normal 8.4-10.2 [facility], [facility] ([place]) Comment on above: Performed By: #### C BC, ADIFF, ANEU, BMP, ALB, GFR, ABOGEL, ABSGEL #### [address] [address] Chloride [Moles/Vol] 103 mmol/L Normal 98-107 [facility] ([place]) Comment on above: Performed By: #### C BC, ADIFF, ANEU, BMP, ALB, GFR, ABOGEL, ABSGEL #### [address] [address] CO2 [Moles/Vol] 26 mmol/L Normal 23-31 [facility] ([place]) Comment on above: Performed By: #### C BC, ADIFF, ANEU, BMP, ALB, GFR, ABOGEL, ABSGEL #### [address] [address] Creatinine [Mass/Vol] 0.83 mg/dL Normal 0.55-1.02 [facility] ([place]) Comment on above: Performed By: #### C BC, ADIFF, ANEU, BMP, ALB, GFR, ABOGEL, ABSGEL #### [place] [phone] Electrolyte Balance 11.0 mEq/L Normal 4.0-15.0 [facility] ([place]) Comment on above: Performed By: #### C BC, ADIFF, ANEU, BMP, ALB, GFR, ABOGEL, ABSGEL #### [address] [address] Glucose [Mass/Vol] 109 mg/dL Normal 80-115 [facility] ([place]) Comment on above: Performed By: #### C BC, ADIFF, ANEU, BMP, ALB, GFR, ABOGEL, ABSGEL #### [address] [address] Potassium [Moles/Vol] 4.3 mmol/L Normal 3.5-5.1 [facility] ([place]) Comment on above: Performed By: #### C BC, ADIFF, ANEU, BMP, ALB, GFR, ABOGEL, ABSGEL #### [address] [address] Sodium [Moles/Vol] 140 mmol/L Normal 136-145 [facility] ([place]) Comment on above: Performed By: #### C BC, ADIFF, ANEU, BMP, ALB, GFR, ABOGEL, ABSGEL #### [address] [address] Urea nitrogen [Mass/Vol] 17 mg/dL Normal 7-18 [facility] ([place]) Comment on above: Performed By: #### C BC, ADIFF, ANEU, BMP, ALB, GFR, ABOGEL, ABSGEL #### [address] [address] CBCon 06-03-2023 Erythrocyte distribution width (RBC) [Ratio] 14.8 % High 11.5-14.5 [facility] ([place]) Comment on above: Order Comment: Pre-A dmission Testing Performed By: #### C BC, ADIFF, ANEU, BMP, ALB, GFR, ABOGEL, ABSGEL #### [address] [address] Hematocrit (Bld) [Volume fraction] 43.1 % Normal 37.0-47.0 [facility] ([place]) Comment on above: Order Comment: Pre-A dmission Testing Performed By: #### C BC, ADIFF, ANEU, BMP, ALB, GFR, ABOGEL, ABSGEL #### [address] [address] Hgb 14.5 G/dL Normal 12.0-16.0 [facility] ([place]) Comment on above: Order Comment: Pre-A dmission Testing Performed By: #### C BC, ADIFF, ANEU, BMP, ALB, GFR, ABOGEL, ABSGEL #### [address] [address] MCH (RBC) [Entitic mass] 29.3 pg Normal 27.0-31.2 [facility] ([place]) Comment on above: Order Comment: Pre-A dmission Testing Performed By: #### C BC, ADIFF, ANEU, BMP, ALB, GFR, ABOGEL, ABSGEL #### [place] [phone] MCHC 33.8 G/dL Normal 33.0-37.0 [facility] ([place]) Comment on above: Order Comment: Pre-A dmission Testing Performed By: #### C BC, ADIFF, ANEU, BMP, ALB, GFR, ABOGEL, ABSGEL #### [address] [address] MCV (RBC) [Entitic vol] 86.8 fL Normal 80.0-94.0 [facility] ([place]) Comment on above: Order Comment: Pre-A dmission Testing Performed By: #### C BC, ADIFF, ANEU, BMP, ALB, GFR, ABOGEL, ABSGEL #### [address] [address] Platelet 253 10 3/mcL Normal 130-400 [facility] ([place]) Comment on above: Order Comment: Pre-A dmission Testing Performed By: #### C BC, ADIFF, ANEU, BMP, ALB, GFR, ABOGEL, ABSGEL #### [address] [address] Platelet mean volume (Bld) [Entitic vol] 9.3 fL Normal 7.4-10.4 [facility] ([place]) Comment on above: Order Comment: Pre-A dmission Testing Performed By: #### C BC, ADIFF, ANEU, BMP, ALB, GFR, ABOGEL, ABSGEL #### [place] [phone] [place], [place] [address] RBC 4.96 10 6/mcL Normal 4.20-5.40 [facility] ([place]) Comment on above: Order Comment: Pre-A dmission Testing Performed By: #### C BC, ADIFF, ANEU, BMP, ALB, GFR, ABOGEL, ABSGEL #### [place] [phone] [place], [place] [address] WBC 7.0 10 3/mcL Normal 4.6-10.8 [facility] ([place]) Comment on above: Order Comment: Pre-A dmission Testing Performed By: #### C BC, ADIFF, ANEU, BMP, ALB, GFR, ABOGEL, ABSGEL #### [address] [address] [address] KNEE W/O CONTRAST RIGHTon 06-03-2023 CT KNEE W/O CONTRAST RIGHT ORIGINAL EXAMINATION: CT OF THE RIGHT KNEE WITHOUT CONTRAST 06/03/2023 12:43 pm TECHNIQUE: CT of the right knee was performed without the administration of intravenous contrast. Multiplanar reformatted images are provided for review. Automated exposure control, iterative reconstruction, and/or weight based adjustment of the mA/kV was utilized to reduce the radiation dose to as low as reasonably achievable. COMPARISON: None. HISTORY ORDERING SYSTEM PROVIDED HISTORY: Reason for Exam: Unilateral primary osteoarthritis, right knee FINDINGS: Survey images right hip: Mild degenerative spurring. No aggressive bony lesion. Right knee: Tricompartmental joint space loss and spurring is most severe in the medial tibiofemoral compartment. Tiny calcified intra-articular body seen. A small joint effusion. Patellar enthesophytes. Lateral subluxation/tilt of the patella noted. Survey images right ankle: No aggressive bony lesion. Tibiotalar spurs. Corticated ossicle noted in the anterior tibiotalar joint space. Chronic posttraumatic ossicle seen along the deltoid ligament. IMPRESSION: 1. Tricompartmental osteoarthritis of the right knee, most severe in the medial tibiofemoral compartment. 2. Small joint effusion in the knee. 3. Lateral subluxation/tilt of the patella. Interpreted by: Sergio Penaloza MD Preliminary Report By: Sergio Penaloza MD Electronically signed By Sergio Penaloza MD Dictated Date: 06/03/2023 4:31:02 PM Prelim Date: 06/03/2023 4:39:38 PM Sign Date: 06/03/2023 4:39:38 PM Ordering Provider: EMILI Ro [facility] ([place]) LABORATORYOrdered By: Ny Holder on 06-03-2023 ABO and Rh group Nom (Bld) Blood group O Rh(D) positive Invalid Interpretation Code AO BB Auto SS Blood group antibody screen Ql Negative ABSC (06/03/23 12:21 PM) Normal AO BB Auto SS LABORATORYOrdered By: SYSTEM SYSTEM on 06-03-2023 Albumin BCP dye [Mass/Vol] 3.9 G/dL Normal 3.4 - 4.8 G/dL AO ADM SS Basophil, Absolute 0.1 103/mcL Normal 0.0 - 0.2 10^3/mcL AO Workflow SS Basophils/100 WBC (Bld) 0.8 % Normal 0.0 - 2.5 % AO Workflow SS Calcium [Mass/Vol] 9.5 mg/dL Normal 8.4 - 10. 2 mg/dL AO ADM SS Chloride [Moles/Vol] 103 mmol/L Normal 98 - 10 7 mmol/L AO ADM SS CO2 [Moles/Vol] 26 mmol/L Normal 23 - 31 mmol/L AO ADM SS Creatinine [Mass/Vol] 0.83 mg/dL Normal 0.55 - 1.02 mg/dL AO ADM SS Electrolyte Balance 11.0 mEq/L Normal 4.0 - 15 .0 mEq/L AO ADM SS Eosinophil, Absolute 0.0 103/mcL Normal 0.0 - 0 .4 10^3/mcL AO Workflow SS Eosinophils/100 WBC (Bld) 0.4 % Normal 0.0 - 7.0 % AO Workflow SS Erythrocyte distribution width (RBC) [Ratio] 14.8 % High 11.5 - 14.5 % AO Workflow SS GFR/1.73 sq M.predicted among blacks MDRD (S/P/Bld) [Vol rate/Area] 83 ml/min/1.73sqm Invalid Interpretation Code AO Chemistry S Comment on above: Interpretive Data: GFR Population mean for , Non- Americans Ages 20-29 = 116 mL/min/1.73 sq.m. Ages 30-39 = 107 mL/min/1.73 sq.m. Ages 40-49 = 99 mL/min/1.73 sq.m. Ages 50-59 = 93 mL/min/1.73 sq.m. Ages 60-69 = 85 mL/min/1.73 sq.m. Ages 70+ = 75 mL/min/1.73 sq.m. Chronic Kidney Disease: Less than 60 mL/min/1.73 square meters End Stage Renal Disease: Less than 15 mL/min/1.73 square meters GFR/1.73 sq M.predicted among non-blacks MDRD (S/P/Bld) [Vol rate/Area] 69 ml/min/1.73sqm Invalid Interpretation Code AO Chemistry S Comment on above: Interpretive Data: GFR Population mean for , Non- Americans Ages 20-29 = 116 mL/min/1.73 sq.m. Ages 30-39 = 107 mL/min/1.73 sq.m. Ages 40-49 = 99 mL/min/1.73 sq.m. Ages 50-59 = 93 mL/min/1.73 sq.m. Ages 60-69 = 85 mL/min/1.73 sq.m. Ages 70+ = 75 mL/min/1.73 sq.m. Chronic Kidney Disease: Less than 60 mL/min/1.73 square meters End Stage Renal Disease: Less than 15 mL/min/1.73 square meters Glucose [Mass/Vol] 109 mg/dL Normal 80 - 115 mg/dL AO ADM SS Hematocrit (Bld) [Volume fraction] 43.1 % Normal 37.0 - 47.0 % AO Workflow SS Hemoglobin (Bld) [Mass/Vol] 14.5 G/dL Normal 12.0 - 16.0 G/dL AO Workflow SS Lymphocyte, Absolute 2.0 103/mcL Normal 0.8 - 3 .9 10^3/mcL AO Workflow SS Lymphocytes/100 WBC (Bld) 28.3 % Normal 10.0 - 50.0 % AO Workflow SS MCH (RBC) [Entitic mass] 29.3 pg Normal 27.0 - 31.2 pg AO Workflow SS MCHC 33.8 G/dL Normal 33.0 - 37.0 G/dL AO Workflow SS MCV (RBC) [Entitic vol] 86.8 fL Normal 80.0 - 94.0 fL AO Workflow SS Monocyte, Absolute 0.5 103/mcL Normal 0.2 - 1.0 10^3/mcL AO Workflow SS Monocytes/100 WBC (Bld) 6.5 % Normal 1.7 - 13.0 % AO Workflow SS Neutrophil, Absolute 4.5 103/mcL Normal 2.9 - 6 .2 10^3/mcL AO Workflow SS Neutrophils/100 WBC (Bld) 64.0 % Normal 37.0 - 80.0 % AO Workflow SS Platelet mean volume (Bld) [Entitic vol] 9.3 fL Normal 7.4 - 10.4 fL AO Workflow SS Platelets (Bld) [#/Vol] 253 103/mcL Normal 130 - 400 10^3/mcL AO Workflow SS Potassium [Moles/Vol] 4.3 mmol/L Normal 3.5 - 5.1 mmol/L AO ADM SS RBC (Bld) [#/Vol] 4.96 106/mcL Normal 4.20 - 5.40 10^6/mcL AO Workflow SS Sodium [Moles/Vol] 140 mmol/L Normal 136 - 145 mmol/L AO ADM SS Urea nitrogen [Mass/Vol] 17 mg/dL Normal 7 - 18 mg/dL AO ADM SS Urea nitrogen/Creatinine [Mass ratio] 20 ratio Normal 7 - 27 ratio AO ADM SS WBC (Bld) [#/Vol] 7.0 103/mcL Normal 4.6 - 10.8 10^3/mcL AO Workflow SS LABORATORYOrdered By: Regino Gasca on 06-03-2023 MRSA (PCR) Not Detected 1 (06/03/23 12:21 PM) Normal Not Detected AH Auto Viro/Sero SS Comment on above: Result Comment: [place] [id number] MRSA PCR Int MRSA DNA not detecte d by Real-Time Polymerase Chain Reaction (PCR). A negative result may be due to intermittent colonization. Colonization may vary depending on patient treatment, patient status, or exposure to high-risk environments.As with all PCR based in vitro diagnostic tests, extremely low levels of target below the limit of detection of the assay may be detected, but results may not be reproducible. Invalid Interpretation Code AH Auto Viro/Sero SS MRSAPCRon 06-03-2023 MRSA (PCR) Not detected Normal Not Detected [facility] ([place]) Comment on above: Result Comment: [place] [id number] Performed By: #### M RSAPCR #### [facility] [address] [place] [id number] MRSA PCR Int Normal [facility] ([place]) Comment on above: Result Comment: MRSA DNA not detected by Real-Time Polymerase Chain Reaction (PCR). A negative result may be due to intermittent colonization. Colonization may vary depending on patient treatment, patient status, or exposure to high-risk environments. As with all PCR based in vitro diagnostic tests, extremely low levels of target below the limit of detection of the assay may be detected, but results may not be reproducible. See Below Performed By: #### M RSAPCR #### [facility] [address] [place] [address] ESTGENon 03-08-2023 Estradiol <5.0 Normal 0.0-54.7 [facility] ([place]) Comment on above: Result Comment: Adul t Female Range Follicular phase 12.5 - 166.0 Ovulation phase 85.8 - 498.0 Luteal phase 43.8 - 211.0 Postmenopausal <6.0 - 54.7 1st trimester 215.0 - >4300.0 Mariangel ECLIA methodology Performed At: [facility] [id number] Saud Groves MD Ph:[phone] Performed At: [facility] [address] [id number] Joe Nuñez PhD Ph:[phone] Performed By: #### C BC, ADIFF, ANEU, BMP, ALB, GFR, ABOGEL, ABSGEL #### [facility] [address] [address] Estrone 86 pg/mL Normal 0-125 [facility] ([place]) Comment on above: Result Comment: Rang e Adult (Premenopausal) 27 - 231 Menstrual Cycle (1-10 days) 19 - 149 Menstrual Cycle (11-20 days) 32 - 176 Menstrual Cycle (21-30 days) 37 - 200 Adult (Postmenopausal) 0 - 125 Performed By: #### C BC, ADIFF, ANEU, BMP, ALB, GFR, ABOGEL, ABSGEL #### [address] [address] .Auto Diffon 03-06-2023 Basophil, Absolute 0.1 10 3/mcL Normal 0.0-0.2 [facility] ([place]) Comment on above: Performed By: #### C BC, ADIFF, ANEU, BMP, ALB, GFR, ABOGEL, ABSGEL #### [address] [address] Basophils/100 WBC (Bld) 0.8 % Normal 0.0-2.5 [facility] ([place]) Comment on above: Performed By: #### C BC, ADIFF, ANEU, BMP, ALB, GFR, ABOGEL, ABSGEL #### [address] [address] Eosinophil, Absolute 0.1 10 3/mcL Normal 0.0-0.4 [facility] ([place]) Comment on above: Performed By: #### C BC, ADIFF, ANEU, BMP, ALB, GFR, ABOGEL, ABSGEL #### [address] [address] Eosinophils/100 WBC (Bld) 1.1 % Normal 0.0-7.0 [facility] ([place]) Comment on above: Performed By: #### C BC, ADIFF, ANEU, BMP, ALB, GFR, ABOGEL, ABSGEL #### [address] [address] Lymphocyte, Absolute 2.2 10 3/mcL Normal 0.8-3.9 [facility] ([place]) Comment on above: Performed By: #### C BC, ADIFF, ANEU, BMP, ALB, GFR, ABOGEL, ABSGEL #### [address] [address] Lymphocytes/100 WBC (Bld) 31.0 % Normal 10.0-50.0 [facility] ([place]) Comment on above: Performed By: #### C BC, ADIFF, ANEU, BMP, ALB, GFR, ABOGEL, ABSGEL #### [address] [address] Monocyte, Absolute 0.5 10 3/mcL Normal 0.2-1.0 [facility] ([place]) Comment on above: Performed By: #### C BC, ADIFF, ANEU, BMP, ALB, GFR, ABOGEL, ABSGEL #### [address] [address] Monocytes/100 WBC (Bld) 7.0 % Normal 1.7-13.0 [facility] ([place]) Comment on above: Performed By: #### C BC, ADIFF, ANEU, BMP, ALB, GFR, ABOGEL, ABSGEL #### [address] [address] Neutrophils/100 WBC (Bld) 60.1 % Normal 37.0-80.0 [facility] ([place]) Comment on above: Performed By: #### C BC, ADIFF, ANEU, BMP, ALB, GFR, ABOGEL, ABSGEL #### [address] [address] .GFRon 03-06-2023 GFR 113 ml/min/1.73sqm Normal [facility] ([place]) Comment on above: Result Comment: GFR Population mean for , Non- Americans Ages 20-29 = 116 mL/min/1.73 sq.m. Ages 30-39 = 107 mL/min/1.73 sq.m. Ages 40-49 = 99 mL/min/1.73 sq.m. Ages 50-59 = 93 mL/min/1.73 sq.m. Ages 60-69 = 85 mL/min/1.73 sq.m. Ages 70+ = 75 mL/min/1.73 sq.m. Chronic Kidney Disease: Less than 60 mL/min/1.73 square meters End Stage Renal Disease: Less than 15 mL/min/1.73 square meters Performed By: #### C BC, ADIFF, ANEU, BMP, ALB, GFR, ABOGEL, ABSGEL #### [address] [address] GFR Non- 93 ml/min/1.73sqm Normal [facility] ([place]) Comment on above: Result Comment: GFR Population mean for , Non- Americans Ages 20-29 = 116 mL/min/1.73 sq.m. Ages 30-39 = 107 mL/min/1.73 sq.m. Ages 40-49 = 99 mL/min/1.73 sq.m. Ages 50-59 = 93 mL/min/1.73 sq.m. Ages 60-69 = 85 mL/min/1.73 sq.m. Ages 70+ = 75 mL/min/1.73 sq.m. Chronic Kidney Disease: Less than 60 mL/min/1.73 square meters End Stage Renal Disease: Less than 15 mL/min/1.73 square meters Performed By: #### C BC, ADIFF, ANEU, BMP, ALB, GFR, ABOGEL, ABSGEL #### [address] [address] .NEUABSon 03-06-2023 Neutrophil, Absolute 4.3 10 3/mcL Normal 2.9-6.2 [facility] ([place]) Comment on above: Performed By: #### C BC, ADIFF, ANEU, BMP, ALB, GFR, ABOGEL, ABSGEL #### [address] [address] CBCon 03-06-2023 Erythrocyte distribution width (RBC) [Ratio] 14.4 % Normal 11.5-14.5 [facility] ([place]) Comment on above: Performed By: #### C BC, ADIFF, ANEU, BMP, ALB, GFR, ABOGEL, ABSGEL #### [address] [address] Hematocrit (Bld) [Volume fraction] 42.3 % Normal 37.0-47.0 [facility] ([place]) Comment on above: Performed By: #### C BC, ADIFF, ANEU, BMP, ALB, GFR, ABOGEL, ABSGEL #### [address] [address] Hgb 14.3 G/dL Normal 12.0-16.0 [facility] ([place]) Comment on above: Performed By: #### C BC, ADIFF, ANEU, BMP, ALB, GFR, ABOGEL, ABSGEL #### [address] [address] MCH (RBC) [Entitic mass] 29.2 pg Normal 27.0-31.2 [facility] ([place]) Comment on above: Performed By: #### C BC, ADIFF, ANEU, BMP, ALB, GFR, ABOGEL, ABSGEL #### [address] [address] MCHC 33.8 G/dL Normal 33.0-37.0 [facility] ([place]) Comment on above: Performed By: #### C BC, ADIFF, ANEU, BMP, ALB, GFR, ABOGEL, ABSGEL #### [address] [address] MCV (RBC) [Entitic vol] 86.3 fL Normal 80.0-94.0 [facility] ([place]) Comment on above: Performed By: #### C BC, ADIFF, ANEU, BMP, ALB, GFR, ABOGEL, ABSGEL #### [address] [address] Platelet 244 10 3/mcL Normal 130-400 [facility] ([place]) Comment on above: Performed By: #### C BC, ADIFF, ANEU, BMP, ALB, GFR, ABOGEL, ABSGEL #### [address] [address] Platelet mean volume (Bld) [Entitic vol] 9.0 fL Normal 7.4-10.4 [facility] ([place]) Comment on above: Performed By: #### C BC, ADIFF, ANEU, BMP, ALB, GFR, ABOGEL, ABSGEL #### [place] [id number] RBC 4.90 10 6/mcL Normal 4.20-5.40 [facility] ([place]) Comment on above: Performed By: #### C BC, ADIFF, ANEU, BMP, ALB, GFR, ABOGEL, ABSGEL #### [address] [address] WBC 7.1 10 3/mcL Normal 4.6-10.8 [facility] ([place]) Comment on above: Performed By: #### C BC, ADIFF, ANEU, BMP, ALB, GFR, ABOGEL, ABSGEL #### [address] [address] CMPon 03-06-2023 Albumin Level 3.7 G/dL Normal 3.4-4.8 [facility] ([place]) Comment on above: Performed By: #### C BC, ADIFF, ANEU, BMP, ALB, GFR, ABOGEL, ABSGEL #### [address] [address] Albumin/Globulin [Mass ratio] 1.1 {ratio} Normal 1.1-2.5 [facility] ([place]) Comment on above: Performed By: #### C BC, ADIFF, ANEU, BMP, ALB, GFR, ABOGEL, ABSGEL #### [address] [address] ALP [Catalytic activity/Vol] 104 U/L Normal 40-135 [facility] ([place]) Comment on above: Performed By: #### C BC, ADIFF, ANEU, BMP, ALB, GFR, ABOGEL, ABSGEL #### [address] [address] ALT [Catalytic activity/Vol] 24 U/L Normal 14-59 [facility] ([place]) Comment on above: Performed By: #### C BC, ADIFF, ANEU, BMP, ALB, GFR, ABOGEL, ABSGEL #### [address] [address] AST [Catalytic activity/Vol] 20 U/L Normal 10-40 [facility] ([place]) Comment on above: Performed By: #### C BC, ADIFF, ANEU, BMP, ALB, GFR, ABOGEL, ABSGEL #### [address] [address] Bili Total 0.4 mg/dL Normal 0.2-1.0 [facility] ([place]) Comment on above: Result Comment: Use of this assay is not recommended for patients undergoing treatment with eltrombopag due to the potential for falsely elevated results. Performed By: #### C BC, ADIFF, ANEU, BMP, ALB, GFR, ABOGEL, ABSGEL #### [address] [address] BUN/Creatinine Ratio 23 ratio Normal 7-27 [facility] ([place]) Comment on above: Performed By: #### C BC, ADIFF, ANEU, BMP, ALB, GFR, ABOGEL, ABSGEL #### [address] [address] Calcium [Mass/Vol] 9.5 mg/dL Normal 8.4-10.2 [facility] ([place]) Comment on above: Performed By: #### C BC, ADIFF, ANEU, BMP, ALB, GFR, ABOGEL, ABSGEL #### [address] [address] Chloride [Moles/Vol] 104 mmol/L Normal 98-107 [facility] ([place]) Comment on above: Performed By: #### C BC, ADIFF, ANEU, BMP, ALB, GFR, ABOGEL, ABSGEL #### [address] [address] CO2 [Moles/Vol] 27 mmol/L Normal 23-31 [facility] ([place]) Comment on above: Performed By: #### C BC, ADIFF, ANEU, BMP, ALB, GFR, ABOGEL, ABSGEL #### [address] [address] Creatinine [Mass/Vol] 0.64 mg/dL Normal 0.55-1.02 [facility] ([place]) Comment on above: Performed By: #### C BC, ADIFF, ANEU, BMP, ALB, GFR, ABOGEL, ABSGEL #### [address] [address] Electrolyte Balance 9.0 mEq/L Normal 4.0-15.0 [facility] ([place]) Comment on above: Performed By: #### C BC, ADIFF, ANEU, BMP, ALB, GFR, ABOGEL, ABSGEL #### [address] [address] Globulin 3.3 G/dL Normal [facility] ([place]) Comment on above: Performed By: #### C BC, ADIFF, ANEU, BMP, ALB, GFR, ABOGEL, ABSGEL #### [address] [address] Glucose [Mass/Vol] 91 mg/dL Normal 80-115 [facility], 1928–1983 ([place]) Comment on above: Performed By: #### C BC, ADIFF, ANEU, BMP, ALB, GFR, ABOGEL, ABSGEL #### [address] [address] Potassium [Moles/Vol] 4.7 mmol/L Normal 3.5-5.1 [facility] ([place]) Comment on above: Performed By: #### C BC, ADIFF, ANEU, BMP, ALB, GFR, ABOGEL, ABSGEL #### [address] [address] Sodium [Moles/Vol] 140 mmol/L Normal 136-145 [facility], [facility] ([place]) Comment on above: Performed By: #### C BC, ADIFF, ANEU, BMP, ALB, GFR, ABOGEL, ABSGEL #### [address] [address] Total Protein 7.0 G/dL Normal 6.4-8.2 [facility] ([place]) Comment on above: Performed By: #### C BC, ADIFF, ANEU, BMP, ALB, GFR, ABOGEL, ABSGEL #### [address] [address] Urea nitrogen [Mass/Vol] 15 mg/dL Normal 7-18 [facility] ([place]) Comment on above: Performed By: #### C BC, ADIFF, ANEU, BMP, ALB, GFR, ABOGEL, ABSGEL #### [address] [address] FSHon 03-06-2023 FSH 33.5 mIU/mL Normal [facility] ([place]) Comment on above: Result Comment: Adul t Female FSH Reference Ranges (11/24/99): Follicular phase 2.5 - 10.2 mIU/mL Midcycle phase 3.4 - 33.4 mIU/mL Luteal phase 1.5 - 9.1 mIU/mL Post menopausal 23.0 -116.3 mIU/mL Adult Male: 1.4 - 18.1 mIU/mL Performed By: #### C BC, ADIFF, ANEU, BMP, ALB, GFR, ABOGEL, ABSGEL #### [address] [address] HCVon 03-06-2023 Hep C Ab Non-Reactive Normal Non-Reacti ve [facility] ([place]) Comment on above: Performed By: #### C BC, ADIFF, ANEU, BMP, ALB, GFR, ABOGEL, ABSGEL #### [place] [address] Hep C Ab Int Normal [facility] ([place]) Comment on above: Result Comment: Nonr eactive: Samples with a value < 0.80 are considered nonreactive (negative) for antibodies to HCV. A negative test result does not exclude the possibility of exposure to or infection with HCV. HCV antibodies may be undetectable in some stages of the infection and in some clinical conditions. See Interp Performed By: #### C BC, ADIFF, ANEU, BMP, ALB, GFR, ABOGEL, ABSGEL #### [address] [address] LABORATORYOrdered By: Tung Camarena on 03-06-2023 Albumin DL <= 20 mg/L (U) [Mass/Vol] mcg/dL Invalid Interpretation Code AO ADM SS Albumin/Creatinine DL <= 20 mg/L (U) [Mass ratio] Unable to Calculate Invalid Interpretation Code 0 - 30 AO ADM SS Comment on above: Result Comment: Unab le to calculate this test result accurately. Results used to calculate this test are outside the reportable range. Creatinine (U) [Mass/Vol] 36.0 mg/dL Normal 28.0 - 117.0 mg/dL AO ADM SS LABORATORYOrdered By: SYSTEM SYSTEM on 03-06-2023 Albumin BCP dye [Mass/Vol] 3.7 G/dL Normal 3.4 - 4.8 G/dL AO ADM SS Albumin/Globulin [Mass ratio] 1.1 {ratio} Normal 1.1 - 2.5 ratio AO ADM SS ALP [Catalytic activity/Vol] 104 U/L Normal 40 - 135 U/L AO ADM SS ALT With P-5'-P [Catalytic activity/Vol] 24 U/L Normal 14 - 59 U/L AO ADM SS AST With P-5'-P [Catalytic activity/Vol] 20 U/L Normal 10 - 40 U/L AO ADM SS Basophil, Absolute 0.1 103/mcL Normal 0.0 - 0.2 10^3/mcL AO Workflow SS Basophils/100 WBC (Bld) 0.8 % Normal 0.0 - 2.5 % AO Workflow SS Bilirubin [Mass/Vol] 0.4 mg/dL Normal 0.2 - 1 .0 mg/dL AO ADM SS Comment on above: Interpretive Data: U se of this assay is not recommended for patients undergoing treatment with eltrombopag due to the potential for falsely elevated results. Calcium [Mass/Vol] 9.5 mg/dL Normal 8.4 - 10. 2 mg/dL AO ADM SS Chloride [Moles/Vol] 104 mmol/L Normal 98 - 10 7 mmol/L AO ADM SS CO2 [Moles/Vol] 27 mmol/L Normal 23 - 31 mmol/L AO ADM SS Creatinine [Mass/Vol] 0.64 mg/dL Normal 0.55 - 1.02 mg/dL AO ADM SS Electrolyte Balance 9.0 mEq/L Normal 4.0 - 15 .0 mEq/L AO ADM SS Eosinophil, Absolute 0.1 103/mcL Normal 0.0 - 0 .4 10^3/mcL AO Workflow SS Eosinophils/100 WBC (Bld) 1.1 % Normal 0.0 - 7.0 % AO Workflow SS Erythrocyte distribution width (RBC) [Ratio] 14.4 % Normal 11.5 - 14.5 % AO Workflow SS Follitropin Qn 33.5 m[IU]/mL Invalid Interpretation Code AH ADM SS Comment on above: Interpretive Data: A dult Female FSH Reference Ranges (01/04/99): Follicular phase 2.5 - 10.2 mIU/mL Midcycle phase 3.4 - 33.4 mIU/mL Luteal phase 1.5 - 9.1 mIU/mL Post menopausal 23.0 -116.3 mIU/mL Adult Male: 1.4 - 18.1 mIU/mL GFR/1.73 sq M.predicted among blacks MDRD (S/P/Bld) [Vol rate/Area] 113 ml/min/1.73sqm Invalid Interpretation Code AO Chemistry S Comment on above: Interpretive Data: GFR Population mean for , Non- Americans Ages 20-29 = 116 mL/min/1.73 sq.m. Ages 30-39 = 107 mL/min/1.73 sq.m. Ages 40-49 = 99 mL/min/1.73 sq.m. Ages 50-59 = 93 mL/min/1.73 sq.m. Ages 60-69 = 85 mL/min/1.73 sq.m. Ages 70+ = 75 mL/min/1.73 sq.m. Chronic Kidney Disease: Less than 60 mL/min/1.73 square meters End Stage Renal Disease: Less than 15 mL/min/1.73 square meters GFR/1.73 sq M.predicted among non-blacks MDRD (S/P/Bld) [Vol rate/Area] 93 ml/min/1.73sqm Invalid Interpretation Code AO Chemistry S Comment on above: Interpretive Data: GFR Population mean for , Non- Americans Ages 20-29 = 116 mL/min/1.73 sq.m. Ages 30-39 = 107 mL/min/1.73 sq.m. Ages 40-49 = 99 mL/min/1.73 sq.m. Ages 50-59 = 93 mL/min/1.73 sq.m. Ages 60-69 = 85 mL/min/1.73 sq.m. Ages 70+ = 75 mL/min/1.73 sq.m. Chronic Kidney Disease: Less than 60 mL/min/1.73 square meters End Stage Renal Disease: Less than 15 mL/min/1.73 square meters Globulin 3.3 G/dL Invalid Interpretation Code AO ADM SS Glucose [Mass/Vol] 91 mg/dL Normal 80 - 115 mg/dL AO ADM SS Hematocrit (Bld) [Volume fraction] 42.3 % Normal 37.0 - 47.0 % AO Workflow SS Hemoglobin (Bld) [Mass/Vol] 14.3 G/dL Normal 12.0 - 16.0 G/dL AO Workflow SS Lutropin Qn 10.4 m[IU]/mL Invalid Interpretation Code ADM SS Comment on above: Interpretive Data: * *Note - New Reference Range in effect 19 Adult Female LH Reference Ranges: Follicular phase 1.9 - 12.5 mIU/mL Midcycle phase 8.7 - 76.3 mIU/mL Luteal phase 0.5 - 16.9 mIU/mL Post menopausal 5.0 - 55.2 mIU/mL Lymphocyte, Absolute 2.2 103/mcL Normal 0.8 - 3 .9 10^3/mcL AO Workflow SS Lymphocytes/100 WBC (Bld) 31.0 % Normal 10.0 - 50.0 % AO Workflow SS MCH (RBC) [Entitic mass] 29.2 pg Normal 27.0 - 31.2 pg AO Workflow SS MCHC 33.8 G/dL Normal 33.0 - 37.0 G/dL AO Workflow SS MCV (RBC) [Entitic vol] 86.3 fL Normal 80.0 - 94.0 fL AO Workflow SS Monocyte, Absolute 0.5 103/mcL Normal 0.2 - 1.0 10^3/mcL AO Workflow SS Monocytes/100 WBC (Bld) 7.0 % Normal 1.7 - 13.0 % AO Workflow SS Neutrophil, Absolute 4.3 103/mcL Normal 2.9 - 6 .2 10^3/mcL AO Workflow SS Neutrophils/100 WBC (Bld) 60.1 % Normal 37.0 - 80.0 % AO Workflow SS Platelet mean volume (Bld) [Entitic vol] 9.0 fL Normal 7.4 - 10.4 fL AO Workflow SS Platelets (Bld) [#/Vol] 244 103/mcL Normal 130 - 400 10^3/mcL AO Workflow SS Potassium [Moles/Vol] 4.7 mmol/L Normal 3.5 - 5.1 mmol/L AO ADM SS Protein [Mass/Vol] 7.0 G/dL Normal 6.4 - 8.2 G/dL AO ADM SS RBC (Bld) [#/Vol] 4.90 106/mcL Normal 4.20 - 5.40 10^6/mcL AO Workflow SS Sodium [Moles/Vol] 140 mmol/L Normal 136 - 145 mmol/L AO ADM SS TSH Qn 3.33 m[IU]/L Normal 0.36 - 3.74 mcIU/mL AO ADM SS Urea nitrogen [Mass/Vol] 15 mg/dL Normal 7 - 18 mg/dL AO ADM SS Urea nitrogen/Creatinine [Mass ratio] 23 ratio Normal 7 - 27 ratio AO ADM SS WBC (Bld) [#/Vol] 7.1 103/mcL Normal 4.6 - 10.8 10^3/mcL AO Workflow SS LABORATORYOrdered By: Trice Trotter on 03-06-2023 HCV Ab IA Ql Non-Reactive (03/06/23 10:52 AM) Normal Non-Reacti ve ADM SS HCV Ab IA Ql Nonreactive: Samples with a value < 0.80 are considered nonreactive (negative) for antibodies to HCV.A negative test result does not exclude the possibility of exposure to or infection with HCV. HCV antibodies may be undetectable in some stages of the infection and in some clinical conditions. Invalid Interpretation Code Chemistry S LHon 03-06-2023 LH 10.4 mIU/mL Normal [facility] ([place]) Comment on above: Result Comment: No te - New Reference Range in effect 19 Adult Female LH Reference Ranges: Follicular phase 1.9 - 12.5 mIU/mL Midcycle phase 8.7 - 76.3 mIU/mL Luteal phase 0.5 - 16.9 mIU/mL Post menopausal 5.0 - 55.2 mIU/mL Performed By: #### C BC, ADIFF, ANEU, BMP, ALB, GFR, ABOGEL, ABSGEL #### [address] [address] MALBRon 03-06-2023 U Creatinine 36.0 mg/dL Normal 28.0-117.0 [facility] ([place]) Comment on above: Performed By: #### C BC, ADIFF, ANEU, BMP, ALB, GFR, ABOGEL, ABSGEL #### [address] [address] U Microalb <130 Normal [facility] ([place]) Comment on above: Performed By: #### C BC, ADIFF, ANEU, BMP, ALB, GFR, ABOGEL, ABSGEL #### [address] [address] U Ratio Alb/Cre Unable to Calculate Normal 0-30 [facility] ([place]) Comment on above: Result Comment: Unab le to calculate this test result accurately. Results used to calculate this test are outside the reportable range. Performed By: #### C BC, ADIFF, ANEU, BMP, ALB, GFR, ABOGEL, ABSGEL #### [place] [address] TSHon 03-06-2023 TSH Qn 3.33 m[IU]/L Normal 0.36-3.74 [facility] ([place]) Comment on above: Performed By: #### C BC, ADIFF, ANEU, BMP, ALB, GFR, ABOGEL, ABSGEL #### [place] [address] MA MAMMOGRAM SCREENING BILAT ERAL W/TOMOon 01-07-2023 MA MAMMOGRAM SCREENING BILATERAL W/FERNANDO ORIGINAL FROM: [place] [address] PROCEDURE FOR: GAVIOTA DAVIES [address] [id number] Home: PID#: [id number] Exam#: [id number] : 1955 Age: 67 TO: BEAR [place]INES [place] [address] Fax: NO FAX EXAMINATION: SCREENING DIGITAL BILATERAL MAMMOGRAM WITH TOMOSYNTHESIS, 01/07/2023 7:51 am TECHNIQUE: Screening mammography of the bilateral breasts was performed with tomosynthesis. 2D standard and 3D tomosynthesis combination imaging performed through both breasts in the MLO and CC projection. Computer aided detection was utilized in the interpretation of this exam. COMPARISON: 12/28/2021, 12/12/2020 HISTORY: Breast cancer screening. FINDINGS: BREAST DENSITY: Heterogeneously dense There are benign appearing calcifications in both breasts. There are no significant masses or calcifications. IMPRESSION: No mammographic evidence of malignancy. Continued screening with annual mammograms is recommended. Stephany Songzick risk calculations, generated with the history provided, report this patient's 10 year risk and lifetime risk for developing breast cancer at 4.8% and 9.4%, respectively. Based on this assessment tool, if the patient's calculated lifetime risk is below 20%, then the patient is considered at average risk for developing breast cancer. If the patient's calculated lifetime risk is at or above 20%, then the patient is considered high risk for developing breast cancer and may be a candidate for supplemental breast MRI screening in addition to annual mammographic screening per the [employer]. BIRADS: MAMMOGRAM BI-RADS: 2: Benign finding RECALL: 1 year screening RECALL TYPE: mammo LETTER SENT: Normal BI-RADS 1 and 2 Interpreted by: Delta Cook MD Preliminary Report By: Delta Cook MD Electronically signed By Delta Cook MD Dictated Date: 01/07/2023 12:30:51 PM Prelim Date: 01/07/2023 12:44:42 PM Sign Date: 01/07/2023 12:44:42 PM Ordering Provider: BEAR HAINES [place] Layer: MESHA RESENDIZ RT(R)(M)(CT) [employer]ER letter sent: Normal BI-RADS 1 and 2 Mammogram BI-RADS: 2 Benign Normal [facility] ([place]) Basophil percentageOrdered B y: Aroldo Mckeon on 12-19-2022 Creatinine [Mass/Vol] 1.0 mg/dL 0.55-1.02 [facility] No Panel InformationOrdered By: Aroldo Mckeon on 12-19-2022 Bedside Estimated GFR (eGFR) > 60.0000 mL/min >60 [facility] MRI ANKLE W/O CONTRAST LEFTo n 10-18-2022 MRI ANKLE W/O CONTRAST LEFT ORIGINAL EXAMINATION: MRI OF THE LEFT ANKLE WITHOUT CONTRAST10/18/2022 11:18 am TECHNIQUE: Multiplanar multisequence MRI of the left ankle was performed without the administration of intravenous contrast. COMPARISON: None HISTORY: ORDERING SYSTEM PROVIDED HISTORY: Reason for Exam: POST TRAUMATIC OSTEOARTHRITIS LEFT ANKLE. Lateral ankle pain. FINDINGS: TENDONS: The extensor tendons are intact and demonstrate a normal course. The flexor tendons are intact and demonstrate a normal course. There is a long segment longitudinal split tear extending from the lateral malleolus to the distal calcaneus/calcaneocuboid articulation. There is distal reconstitution prior to its insertion. Mild peroneus longus tendinosis. No evidence of peroneus longus tendon tear. Minimal common peroneal tenosynovitis. No peroneal tendon subluxation or dislocation. Markedly thickened morphology of the Achilles tendon with low-grade partial tearing at the insertion. Minimal peritendinous edema. The plantar aponeurosis is intact. LIGAMENTS: There is a thickened morphology of the anterior talofibular ligament without evidence of fiber discontinuity. Thickened morphology of the calcaneofibular ligament without definite fiber discontinuity. The posterior talofibular ligament is intact. The anterior and posterior tibiofibular ligaments are intact. Subtle edema of the deltoid ligamentous complex without visible fiber discontinuity, however small corticated ossicles are present. The spring ligament complex is intact. JOINTS: There is no dislocation. There is no joint effusion. The articular cartilage of the tibiotalar joint is normal. There is no osteochondral defect in the talar dome. Mild anterior subtalar subchondral marrow edema. No significant middle or subtalar arthrosis. Mild subchondral marrow edema is noted of the naviculocuneiform articulation. No additional significant midfoot arthrosis. OSSEOUS STRUCTURES: There is patchy marrow edema of the calcaneus involving the posterior tuberosity extending to the anterior body. No evidence of macrotrabecular fracture. Prominent peroneal tubercle of the calcaneus. There is no marrow replacing lesion. SOFT TISSUES: There is edema of Kager's fat pad and mild retrocalcaneal bursal fluid. There is plantar subcutaneous edema. There is no muscle atrophy or significant edema. The tarsal tunnel is normal. The sinus tarsi is normal with preservation of fat signal. IMPRESSION: 1. Patchy marrow edema of the calcaneus without evidence of macrotrabecular fracture. 2. Severe Achilles tendinosis and low-grade partial insertional tearing. Minimal peritendinitis. 3. Long segment longitudinal split tear of the peroneus brevis tendon with distal reconstitution. Mild peroneus longus tendinosis. Minimal common peroneal tenosynovitis. 4. Question minimal edema of the deep deltoid ligamentous complex with associated corticated ossicles. Findings may reflect subtle acute on chronic sprain. 5. Findings suggesting remote anterior talofibular and calcaneofibular ligament sprains. I have personally reviewed the images of this examination and agree with the resident's findings and interpretation. Interpreted by: Sergio Castellanos DO Preliminary Report By: Jag Marcelo Electronically signed By Sergio Castellanos DO Dictated Date: 10/18/2022 11:22:03 AM Prelim Date: 10/18/2022 4:28:47 PM Sign Date: 10/18/2022 4:28:47 PM Ordering Provider: JILL STAFFORD [facility] ([place]) Final Surgical Pathology Rep thea 09-25-2022 Final Surgical Pathology Report . Pathology Reports Accession: Collected Date/Time: Received Date/Time: Pathologist: [id number] 09/21/2022 16:41 EDT 09/24/2022 10:02 EDT ANIKA MORRISON MD Final Surgical Pathology Report DIAGNOSIS: SKIN, SCALP -: - SEBORRHEIC KERATOSIS CLINICAL INFORMATION: SUSPICIOUS NEVUS Procedure: SHAVE BX Preoperative diagnosis: SUSPICIOUS NEVUS Postoperative diagnosis: SUSPICIOUS NEVUS SPECIMEN: A SKIN, SCALP GROSS DESCRIPTION: A. Received in formalin, labeled with the patients name, Case # [id number] , and scalp are multiple white-young skin fragments ranging from 0.1 to 0.4 cm. TS -1 Dictated by AMBER ALBERTS MICROSCOPIC DESCRIPTION: The microscopic examination is performed, except in the case of Gross Only. Electronically Signed by Pathology Report verified by [facility] ANIKA MORRISON Sign out Date: 09/25/2022 13:08 Performing Lab: [facility], [address] [place] [address] Pathology Dept Disclaimer If ancillary studies were utilized, the following Laboratory Developed Test (LDT) disclaimer will apply: Under CLIA requirements, [facility] is qualified to perform high complexity testing. For all ancillary stains, positive and negative controls stain appropriately. Performance characteristics of immunohistochemical and chromogenic in-situ hybridization tests have been determined by [facility]. These tests are used for clinical purposes, They should not be regarded as investigational or for research. [facility] ([place]) AZTREONAM:SUSC:PT:ISOLATE:OR DQN:MICon 07-24-2022 Aztreonam SANTIAGO [Susc] 10,000 - 50,000 cfu /ml Escherichia coli [facility] Work Phone: Aztreonam SANTIAGO [[facility]]on 07-24 Escherichia coli Escherichia coli [facility] Work Phone: No Panel Informationon 12-15 Culture Urine >100,000 cfu/ml Esch erichia coli [facility] Work Phone: Escherichia coli Escherichia coli [facility] Work Phone: LABORATORYOrdered By: Pedro Bowers on 11-29-2020 Albumin BCP dye [Mass/Vol] 3.9 G/dL Invalid Interpretation Code 3.4 - 4.8 G/dL AO ADM SS Albumin/Globulin [Mass ratio] 1.3 {ratio} Invalid Interpretation Code 1.1 - 2.5 ratio AO ADM SS ALP [Catalytic activity/Vol] 94 U/L Invalid Interpretation Code 40 - 135 U/L AO ADM SS ALT With P-5'-P [Catalytic activity/Vol] 16 U/L Invalid Interpretation Code 14 - 59 U/L AO ADM SS AST With P-5'-P [Catalytic activity/Vol] 20 U/L Invalid Interpretation Code 10 - 40 U/L AO ADM SS Bilirubin [Mass/Vol] 0.4 mg/dL Invalid Interpretation Code 0.2 - 1.0 mg/dL AO ADM SS Calcium [Mass/Vol] 9.4 mg/dL Invalid Interpretation Code 8.4 - 10.2 mg/dL AO ADM SS Chloride [Moles/Vol] 103 mmol/L Invalid Interpretation Code 98 - 107 mmol/L AO ADM SS Cholesterol [Mass/Vol] 185 mg/dL Invalid Interpretation Code 0 - 200 mg/dL AO ADM SS Cholesterol in HDL [Mass/Vol] 48 mg/dL Invalid Interpretation Code 40 - 60 mg/dL AO ADM SS Cholesterol in LDL [Mass/Vol] 110 mg/dL Invalid Interpretation Code 0 - 130 mg/dL AO ADM SS CO2 [Moles/Vol] 28 mmol/L Invalid Interpretation Code 23 - 31 mmol/L AO ADM SS Creatinine [Mass/Vol] 0.71 mg/dL Invalid Interpretation Code 0.55 - 1.02 mg/dL AO ADM SS Electrolyte Balance 11.0 mEq/L Invalid Interpretation Code AO ADM SS Globulin 2.9 G/dL Invalid Interpretation Code AO ADM SS Glucose [Mass/Vol] 93 mg/dL Invalid Interpretation Code 80 - 115 mg/dL AO ADM SS Potassium [Moles/Vol] 4.8 mmol/L Invalid Interpretation Code 3.5 - 5.1 mmol/L AO ADM SS Protein [Mass/Vol] 6.8 G/dL Invalid Interpretation Code 6.4 - 8.2 G/dL AO ADM SS Sodium [Moles/Vol] 142 mmol/L Invalid Interpretation Code 136 - 145 mmol/L AO ADM SS Triglyceride [Mass/Vol] 135 mg/dL Invalid Interpretation Code 0 - 150 mg/dL AO ADM SS TSH Qn 3.96 m[IU]/L Invalid Interpretation Code 0.36 - 3.74 mcIU/mL AO ADM SS Urea nitrogen [Mass/Vol] 15 mg/dL Invalid Interpretation Code 7 - 18 mg/dL AO ADM SS Urea nitrogen/Creatinine [Mass ratio] 21 ratio Invalid Interpretation Code 7 - 27 ratio AO ADM SS LABORATORYOrdered By: Katerine Miller on 11-29-2020 Basophil, Absolute 0.10 103/mcL Invalid Interpretation Code 0.00 - 0.19 10^3/mcL AO Auto Heme SS Basophils/100 WBC (Bld) 0.9 % Invalid Interpretation Code 0.0 - 2.5 % AO Auto Heme SS Eosinophil, Absolute 0.20 103/mcL Invalid Interpretation Code 0.00 - 0.40 10^3/mcL AO Auto Heme SS Eosinophils/100 WBC (Bld) 2.5 % Invalid Interpretation Code 0.0 - 7.0 % AO Auto Heme SS Erythrocyte distribution width (RBC) [Ratio] 14.6 % Invalid Interpretation Code 11.5 - 14.5 % AO Auto Heme SS Hematocrit (Bld) [Volume fraction] 44.3 % Invalid Interpretation Code 37.0 - 47.0 % AO Auto Heme SS Hemoglobin (Bld) [Mass/Vol] 14.7 G/dL Invalid Interpretation Code 12.0 - 16.0 G/dL AO Auto Heme SS Lymphocyte, Absolute 2.40 103/mcL Invalid Interpretation Code 0.77 - 3.85 10^3/mcL AO Auto Heme SS Lymphocytes/100 WBC (Bld) 35.5 % Invalid Interpretation Code 10.0 - 50.0 % AO Auto Heme SS MCH (RBC) [Entitic mass] 29.7 pg Invalid Interpretation Code 27.0 - 31.2 pg AO Auto Heme SS MCHC (RBC) [Mass/Vol] 33.1 G/dL Invalid Interpretation Code 33.0 - 37.0 G/dL AO Auto Heme SS MCV (RBC) [Entitic vol] 89.6 fL Invalid Interpretation Code 80.0 - 94.0 fL AO Auto Heme SS Monocyte, Absolute 0.50 103/mcL Invalid Interpretation Code 0.15 - 1.00 10^3/mcL AO Auto Heme SS Monocytes/100 WBC (Bld) 7.8 % Invalid Interpretation Code 1.7 - 13.0 % AO Auto Heme SS Neutrophil, Absolute 3.70 103/mcL Invalid Interpretation Code 2.85 - 6.16 10^3/mcL AO Auto Heme SS Neutrophils/100 WBC (Bld) 53.3 % Invalid Interpretation Code 37.0 - 80.0 % AO Auto Heme SS Platelet mean volume (Bld) [Entitic vol] 9.8 fL Invalid Interpretation Code 7.4 - 10.4 fL AO Auto Heme SS Platelets (Bld) [#/Vol] 258 103/mcL Invalid Interpretation Code 130 - 400 10^3/mcL AO Auto Heme SS RBC (Bld) [#/Vol] 4.94 106/mcL Invalid Interpretation Code 4.20 - 5.40 10^6/mcL AO Auto Heme SS WBC (Bld) [#/Vol] 6.90 103/mcL Invalid Interpretation Code 4.60 - 10.80 10^3/mcL AO Auto Heme SS LABORATORYOrdered By: SYSTEM SYSTEM on 11-29-2020 GFR 100 ml/min/1.73sqm Invalid Interpretation Code AO Chemistry S GFR Non- 83 ml/min/1.73sqm Invalid Interpretation Code AO Chemistry S LABORATORYOrdered By: Pedro Bowers on 11-25-2020 ADMITTED TO INTENSIVE CARE UNIT FOR CONDITION OF INTEREST:FIND:PT:^PA TIENT:ORD: No (11/25/20 12:00 PM) Invalid Interpretation Code AO Auto Urine SS EMPLOYED IN A HEALTHCARE SETTING:FIND:PT:^YASMIN IENT:ORD: No (11/25/20 12:00 PM) Invalid Interpretation Code AO Auto Urine SS FIRST TEST FOR CONDITION OF INTEREST:FIND:PT:^PA TIENT:ORD: No (11/25/20 12:00 PM) Invalid Interpretation Code AO Auto Urine SS HAS SYMPTOMS RELATED TO CONDITION OF INTEREST:FIND:PT:^PA TIENT:ORD: Yes (11/25/20 12:00 PM) Invalid Interpretation Code AO Auto Urine SS Illness or injury onset date and time [id number] Invalid Interpretation Code AO Auto Urine SS Patient was hospitalized because of this condition No (11/25/20 12:00 PM) Invalid Interpretation Code AO Auto Urine SS status Not (11/25/20 12:00 PM) Invalid Interpretation Code AO Auto Urine SS RESIDES IN A CONGREGATE CARE SETTING:FIND:PT:^PAT IENT:ORD: No (11/25/20 12:00 PM) Invalid Interpretation Code AO Auto Urine SS SARS-CoV-2 (COVID-19) RNA TATO+probe Ql (Resp) Negative (11/25/20 12:00 PM) Invalid Interpretation Code Negative AO Auto Urine SS SARS-CoV-2 (COVID-19) RNA TATO+probe Ql (Unsp spec) Negative results do not preclude SARS-CoV-2 infection and should not be used as the sole basis for patient management decisions. Negative results must be combined with clinical observations, patient history, and epidemiological information.There is a risk of false negative values resulting from improperly collected, transported, or handled specimens.There is a risk of false negative values due to the presence of sequence variants in the pathogen targets of the assay, procedural errors, amplification inhibitors in specimens, or inadequate numbers of organisms for amplification.CATHY SARS-CoV-2 Assay is a Real-Time reverse-transcriptase polymerase chain reaction (RT-PCR) based qualitative in vitro diagnostic test intended for the qualitative detection of nucleic acid from the SARS-CoV-2 in nasopharyngeal swab specimens collected from individuals suspected of COVID-19 by their healthcare provider. Testing is limited to laboratories certified under the Clinical Laboratory Improvement Amendments of 1988 (CLIA), 42 U.S.C. 263a, to perform moderate and high complexity tests. Invalid Interpretation Code AO Auto Urine SS Vital Signs Date Time Vital Sign Value Performing Clinician Facility 09-22-2024 13:57-0400 Body height 167.[address] Bear Haines DO Work Phone: [facility] 09-22-2024 13:57-0400 Body mass index (BMI) [Ratio] 29.5 kg/m2 Dr. Bear Haines DO Work Phone: [facility] 09-22-2024 13:57-0400 Body temperature 97 [degF] Dr. Bear Haines DO Work Phone: [facility] 09-22-2024 13:57-0400 Body weight 83.[address] Bear Haines DO Work Phone: [facility] 09-22-2024 13:57-0400 Diastolic blood pressure 77 mm[Hg] Dr. Bear Haines DO Work Phone: [facility] 09-22-2024 13:57-0400 Heart rate 80 /min Dr. Bear Haines DO Work Phone: [facility] 09-22-2024 13:57-0400 Respiratory rate 16 /min Dr. Bear Haines DO Work Phone: [facility] 09-22-2024 13:57-0400 SaO2% (BldA) [Mass fraction] 95 % Dr. Bear Haines DO Work Phone: [facility] 09-22-2024 13:57-0400 Systolic blood pressure 110 mm[Hg] Dr. Bear Haines DO Work Phone: [facility] 06-24-2024 11:10-0400 Body height 167.[address] BEAR HAINES DO [facility] 06-24-2024 11:10-0400 Body weight 94.[address] BEAR HAINES DO [facility] 06-24-2024 11:10-0400 Body weight 33.75 kg/m2 DR BEAR HAINES DO [facility] 06-25-2023 13:46-0400 Diastolic Blood Pressure Non-Invasive 64 mm[Hg] DR EMILI CHIU MD [facility] 06-25-2023 13:46-0400 Heart rate 57 /min DR EMILI CHIU MD [facility] 06-25-2023 13:46-0400 Respiratory rate 14 /min DR EMILI CHIU MD [facility] 06-25-2023 13:46-0400 Systolic Blood Pressure Non-Invasive 140 mm[Hg] DR EMILI CHIU MD [facility] 06-25-2023 12:03-0400 Diastolic Blood Pressure Non-Invasive 62 mm[Hg] DR EMILI CHIU MD [facility] 06-25-2023 12:03-0400 Heart rate 50 /min DR EMILI CHIU MD [facility] 06-25-2023 12:03-0400 Respiratory rate 16 /min DR EMILI CHIU MD [facility] 06-25-2023 12:03-0400 Systolic Blood Pressure Non-Invasive 125 mm[Hg] DR EMILI CHIU MD [facility] 06-25-2023 10:25-0400 Diastolic Blood Pressure Non-Invasive 76 mm[Hg] DR EMILI CHIU MD [facility] 06-25-2023 10:25-0400 Heart rate 60 /min DR EMILI CHIU MD [facility] 06-25-2023 10:25-0400 Respiratory rate 15 /min DR EMILI CHIU MD [facility] 06-25-2023 10:25-0400 Systolic Blood Pressure Non-Invasive 140 mm[Hg] DR EMILI CHIU MD [facility] 06-25-2023 08:48-0400 Body temperature 96.98 [degF] DR EMILI CHIU MD [facility] 06-25-2023 08:35-0400 Respiratory Rate - Anes 8 br/min DR EMILI CHIU MD [facility] 06-25-2023 08:30-0400 Body temperature 96.8 [degF] DR EMILI CHIU MD [facility] 06-25-2023 08:30-0400 Respiratory Rate - Anes 9 br/min DR EMILI CHIU MD [facility] 06-25-2023 08:25-0400 Respiratory Rate - Anes 9 br/min DR EMILI CHIU MD [facility] 06-25-2023 08:15-0400 Body temperature 96.8 [degF] DR EMILI CHIU MD [facility] 06-25-2023 05:58-0400 Body height [address] EMILI CHIU MD [facility] 06-25-2023 05:58-0400 Body temperature 97.52 [degF] DR EMILI CHIU MD [facility] 06-25-2023 05:58-0400 Body weight 92.[address] EMILI CHIU MD [facility] 06-25-2023 05:58-0400 Heart rate 57 /min DR EMILI CHIU MD [facility] 06-03-2023 12:00-[address] EMILI CHIU MD [facility] 06-03-2023 12:00-[address] EMILI Fritz [facility] 06-03-2023 12:00-0400 Body height 167.[address] EMILI CHIU MD [facility] 06-03-2023 12:00-0400 Body weight 92.[address] EMILI CHIU MD [facility] 06-03-2023 12:00-0400 Body weight 32.93 kg/m2 DR EMILI CHIU MD [facility] 06-03-2023 12:00-0400 Diastolic Blood Pressure Non-Invasive 77 mm[Hg] DR EMILI CHIU MD [facility] 06-03-2023 12:00-0400 Heart rate 76 /min DR EMILI CHIU MD [facility] 06-03-2023 12:00-0400 Respiratory rate 18 /min DR EMILI CHIU MD [facility] 06-03-2023 12:00-0400 Systolic Blood Pressure Non-Invasive 134 mm[Hg] DR EMILI CHIU MD [facility] 12-19-2022 13:07-0500 Diastolic blood pressure 71 mm[Hg] [facility] 12-19-2022 13:07-0500 Heart rate 61 /min [facility] 12-19-2022 13:07-0500 Respiratory rate 14 /min [facility] 12-19-2022 13:07-0500 SaO2% (BldA) [Mass fraction] 95 % [facility] 12-19-2022 13:07-0500 Systolic blood pressure 133 mm[Hg] [facility] 12-19-2022 12:42-0500 Body height 167.64 cm [facility] 12-19-2022 12:42-0500 Body mass index (BMI) [Ratio] 32.1 kg/m2 [facility] 12-19-2022 12:42-0500 Body weight 90.26 kg [facility] 01-19-2022 11:35-0500 Diastolic Blood Pressure Non-Invasive 65 1 JILL SUPPAN DPM [facility] 01-19-2022 11:35-0500 Heart rate 60 /min JILL SUPPAN DPM [facility] 01-19-2022 11:35-0500 Respiratory rate 15 /min JILL SUPPAN DPM [facility] 01-19-2022 11:35-0500 Systolic Blood Pressure Non-Invasive 129 1 JILL SUPPAN DPM [facility] 01-19-2022 11:25-0500 Diastolic Blood Pressure Non-Invasive 84 1 JILL SUPPAN DPM [facility] 01-19-2022 11:25-0500 Heart rate 55 /min JILL SUPPAN DPM [facility] 01-19-2022 11:25-0500 Respiratory rate 15 /min JILL SUPPAN DPM [facility] 01-19-2022 11:25-0500 Systolic Blood Pressure Non-Invasive 135 1 JILL SUPPAN DPM [facility] 01-19-2022 11:20-0500 Diastolic Blood Pressure Non-Invasive 83 1 JILL SUPPAN DPM [facility] 01-19-2022 11:20-0500 Heart rate 61 /min JILL SUPPAN DPM [facility] 01-19-2022 11:20-0500 Respiratory rate 15 /min JILL SUPPAN DPM [facility] 01-19-2022 11:20-0500 Systolic Blood Pressure Non-Invasive 136 1 JILL SUPPAN DPM [facility] 01-19-2022 11:10-0500 Body temperature 97.7 [degF] JILL SUPPAN DPM [facility] 01-19-2022 11:05-0500 Respiratory Rate - Anes 0 br/min JILL SUPPAN DPM [facility] 01-19-2022 11:00-0500 Respiratory Rate - Anes 12 br/min JILL SUPPAN DPM [facility] 01-19-2022 10:55-0500 Respiratory Rate - Anes 11 br/min JILL SUPPAN DPM [facility] 01-19-2022 09:28-0500 Blood Pressure Location JILL SUPPAN DPM [facility] 01-19-2022 09:28-0500 Blood Pressure Method JILL SUPPAN DPM [facility] 01-19-2022 09:28-0500 Body height 167.6 cm JILL SUPPAN DPM [facility] 01-19-2022 09:28-0500 Body temperature 98.42 [degF] JILL SUPPAN DPM [facility] 01-19-2022 09:28-0500 Body weight 93.2 kg JILL SUPPAN DPM [facility] 01-19-2022 09:28-0500 Heart rate 58 /min JILL SUPPAN DPM [facility] 01-10-2022 09:20-0500 Body height 167.6 cm JILL SUPPAN DPM [facility] 01-10-2022 09:20-0500 Body weight 93.2 kg JILL SUPPAN DPM [facility] 01-10-2022 09:20-0500 Body weight 33.18 kg/m2 JILL SUPPAN DPM [facility] 01-10-2022 09:20-0500 diastolic 68 mm[Hg] JILL SUPPAN DPM [facility] 01-10-2022 09:20-0500 Heart rate 61 /min JILL SUPPAN DPM [facility] 01-10-2022 09:20-0500 systolic 132 mm[Hg] JILL SUPPAN DPM [facility] Encounters Encounter Date Encounter Type Care Provider Facility Start: 11-03-2024 ambulatory Bear Haines Facility:[facility] Start: 10-28-2024 End: 10-28-[address] BEAR HAINES DO Facility[facility] [place] Start: 10-28-2024 End: 10-28-[address] BEAR HAINES DO [facility] Start: 10-28-[address] BEAR HAINES DO Facili ty:[facility] Start: 09-30-2024 End: 09-30-[address] BEAR HAINES DO Facility:[facility] Start: 09-30-2024 End: 09-30-[address] BEAR HAINES DO [facility] Start: 09-22-2024 End: 09-22-2024 Patient encounter procedure Stacey DENISE -[facility] Work Phone: Start: 09-22-2024 End: 09-22-[address] Bear Haines DO Work Phone: -[facility] Start: 09-04-2024 End: 09-04-[address] BEAR HAINES DO [facility] Start: 09-04-2024 End: 09-04-[address] BEAR HAINES DO [facility] Start: 09-02-2024 End: 09-02-[address] BEAR HAINES DO [facility] Start: 09-02-2024 End: 09-02-[address] BEAR HAINES DO [facility] Start: 09-02-2024 End: 09-02-[address] BEAR HAINES DO [facility] Start: 09-02-2024 End: 09-02-[address] BEAR HAINES DO [facility] Start: 08-11-2024 Non-patient / Non-visit Dr. Jose Traylor MD -[facility] Work Phone: Start: 07-29-2024 End: 07-29-[address] BEAR HAINES DO [facility] Start: 07-29-2024 End: 07-29-[address] BEAR HAINES DO [facility] Start: 06-30-2024 End: 06-30-[address] BEAR HAINES DO [facility] Start: 06-30-2024 End: 06-30-[address] BEAR HAINES DO [facility] Start: 06-24-2024 End: 06-24-[address] BEAR HAINES DO [facility] Start: 06-24-2024 End: 06-24-[address] BEAR HAINES DO [facility] Start: 06-10-2024 End: 06-10-[address] BEAR HAINES DO [facility] Start: 06-10-2024 End: 06-10-[address] BEAR HAINES DO [facility] Start: 05-27-2024 End: 05-27-[address] BEAR HAINES DO [facility] Start: 03-03-2024 End: 03-07-[address] BEAR HAINES DO [facility] Start: 03-03-2024 End: 03-07-[address] BEAR HAINES DO [facility] Start: 01-13-2024 End: 01-13-[address] BEAR HAINES DO [facility] Start: 01-13-2024 End: 01-13-[address] BEAR HAINES DO [facility] Start: 09-10-2023 End: 09-10-[address] BEAR HAINES DO Facility:[facility] Start: 08-30-2023 End: 09-03-[address] BEAR HAINES DO Facility:[facility] Start: 08-30-2023 End: 09-03-2023 Encounter for general adult medical examination without abnormal findings DR BEAR HAINES DO Facility:[facility] Start: 08-30-2023 End: 09-03-[address] BEAR HAINES DO [facility] Start: 06-28-2023 End: 08-13-2023 Admission to same day surgery center DR EMILI CHIU MD [facility] Start: 06-28-2023 End: 08-13-[address] EMILI CHIU MD Facility:[facility] Start: 06-25-2023 End: 06-25-[address] EMILI CHIU MD Facility:[facility] Start: 06-25-2023 End: 06-25-[address] EMILI CHIU MD [facility] Start: 06-03-2023 End: 06-03-[address] EMILI CHIU MD [facility] Start: 06-03-2023 End: 06-03-[address] EMILI CHIU MD [facility] Start: 06-03-2023 End: 06-03-[address] EMILI CHIU MD Facility:[facility] Start: 03-06-2023 End: 03-10-[address] BEAR HAINES DO Facility:[facility] Start: 03-06-2023 End: 03-10-[address] BEAR HAINES DO [facility] Start: 03-06-2023 End: 03-06-[address] BEAR HAINES DO Facility:[facility] Start: 03-06-2023 End: 03-06-[address] BEAR HAINES DO [facility] Start: 01-07-2023 End: 01-07-[address] BEAR HAINES DO Facility:[facility] Start: 01-07-2023 End: 01-07-[address] BEAR HAINES DO [facility] Start: 12-19-2022 End: 12-19-2022 ambulatory [facility] Work Phone: Start: 12-19-2022 End: 12-19-2022 Patient encounter procedure [facility]-Cat Scan, [facility] Work Phone: Start: 10-18-2022 End: 10-18-[address] BEAR HAINES DO Facility:[facility] Start: 09-26-2022 End: 09-26-[address] BERA HAINES DO Facility:[facility] Start: 09-21-2022 End: 09-25-[address] BEAR HAINES DO Facility:[facility] Start: 09-21-2022 End: 09-25-[address] BEAR HAINES DO [facility] Start: 08-27-2022 End: 08-27-2022 ambulatory [facility] Work Phone: Start: 08-27-2022 End: 08-27-2022 Patient encounter procedure [facility]-Ultrasound, [facility] Work Phone: Start: 07-24-2022 End: 07-28-2022 Outreach Lab NINO MCCURDY [facility] Start: 04-26-2022 End: 05-09-[address] BEAR HAINES DO [facility] Start: 01-19-2022 End: 01-19-2022 SAME DAY STAY JILL STAFFORD DPM [facility] Start: 01-10-2022 End: 01-10-2022 Admission to establishment JILL STAFFORD DPM [facility] Start: 12-28-2021 End: 12-28-[address] BEAR HAINES DO [facility] Start: 08-15-2021 End: 08-15-2021 Patient encounter procedure MILVIA WILLIS MD [facility] Start: 01-24-2021 End: 01-24-2021 Patient encounter procedure JASPAL SHAIKH DESIGNER ARCH[employer] [facility] Start: 12-15-2020 End: 12-19-2020 Outreach Lab MILVIA WILLIS MD [facility] Start: 12-12-2020 End: 12-12-2020 Patient encounter procedure MILVIA WILLIS MD [facility] Start: 11-29-2020 End: 11-29-2020 Patient encounter procedure MILVIA WILLIS MD [facility] Start: 11-25-2020 End: 11-25-2020 Patient encounter procedure ROMANCHASIDY REZA DESIGNER ARCHITECT[employer] C[employer] [facility] Procedures Date Procedure Procedure Detail Performing Clinician Start: 12-19-2022 CT angiography of coronary arteries Start: 08-27-2022 US urinary tract Start: 01-19-2022 Repair of tendo achilles DR BEAR Rivera Start: 02-11-2014 Arthroscopy knee meniscal trnsplj med/lat ZACH REZA DESIGNER ARCHITECT[employer] C[employer]TER Start: 02-12-1996 Hysterectomy ZACH REZA DESIGNER ARCHITECT[employer] C[employer]TER Comment on above: due to cancer Appendectomy [facility] DESIGNER ARCHITECT-STEM CUTTER Colonoscopy [facility] DESIGNER ARCHITECT-STEM CUTTER Esophagogastroduodenoscopy L ALEXANDRO SHELTON DESIGNER ARCHITECT-STEM CUTTER Structure of wisdom tooth (body structure) [facility] DESIGNER ARCHITECT-STEM CUTTER Tonsillectomy [facility] DESIGNER ARCHITECT-STEM CUTTER Total knee replacement DR KRYSTYNA HAINES DO Comment on above: Right Knee Plan of Treatment Date Care Activity Detail Author Start: 12-19-2022 [facility] Immunizations Immunization Date Immunization Notes Care Provider Fa [facility] 11-05-2023 influenza virus vacc ine, unspecified formulation DR BEAR HAINES DO [facility] 10-26-2022 influenza virus vacc ine, unspecified formulation DR BEAR HAINES DO [facility] 12-27-2021 Pneumococcal conjuga te PCV20, polysaccharide [id number] conjugate, adjuvant, PF; Translations: [Prevnar 20] DR BEAR HAINES DO [facility] 11-15-2021 SARS-CoV-2 (CV19)mRNA-[address] BEAR HAINES DO [facility] 11-15-2021 SARS-CoV-2 CV19 mRNA-[address] BEAR HAINES DO [facility] 11-15-2021 SARSCoV2 (CV19)mRNA-1273(6y+ bival colin DR BEAR HAINES DO [facility] 05-30-2021 zoster vaccine recombinant; Translations: [Shingrix] MILVIA WILLIS MD [facility] 01-01-2021 SARS-CoV-2 (COVID-19 ) mRNA-1273 vaccine [address] WILLIS MD [facility] 11-15-2020 influenza virus vacc ine, unspecified formulation MILVIA WILLIS MD [facility] 05-17-2020 COVID-19, mRNA, LNP- S, PF, 100 mcg/ 0.5 mL dose; Translations: [Moderna COVID-19 Vaccine] [facility] 04-19-2020 COVID-19, mRNA, LNP- S, PF, 100 mcg/ 0.5 mL dose; Translations: [Moderna COVID-19 Vaccine] [facility] 11-25-2019 tetanus toxoid, redu víctor diphtheria toxoid, and acellular pertussis vaccine, adsorbed; Translations: [Boostrix (Tdap)] [facility] 10-20-2019 influenza virus vacc ine, unspecified formulation MILVIA WILLIS MD [facility] 10-16-2018 influenza virus vacc ine, unspecified formulation [facility] 11-28-2016 influenza virus vacc ine, unspecified formulation MILVIA WILLIS MD [facility] 12-03-2014 influenza virus vacc ine, unspecified formulation MILVIA WILLIS MD [facility] 10-12-2013 influenza virus vacc ine, unspecified formulation MILVIA WILLIS MD [facility] 04-14-2013 zoster vaccine, live MILVIA WILLIS MD [facility] 11-30-2012 influenza virus vacc ine, unspecified formulation MILVIA WILLIS MD [facility] Payers Date Payer Category Payer Self-pay 2024 Private Health Insurance [id number] 2022 Private Health Insurance [id number] 1955 Unknown [id number] 2.16.8 40.1.876245.3.579.2. 1955 Unknown [id number] 2.16.8 40.1.672419.3.579.2 1956 Unknown [id number] 2.16.8 40.1.383377.3.579.2. 1956 Unknown [id number] 2.16.8 40.1.523121.3.579.2 1955 Unknown [id number] 2.16.8 40.1.461964.3.579.2.627 1955 Unknown [id number] 2.16.8 40.1.789063.3.579.2 1956 Unknown [id number] 2.16.8 40.1.580607.3.579.2. 1955 Unknown [id number] 2.16.8 40.1.179280.3.579.2 1955 Unknown [id number] 2.16.8 40.1.896406.3.579.2.7 1955 Unknown [id number] 2.16.8 40.1.980260.3.579.2. 1956 Unknown [id number] 2.16.8 40.1.261861.3.579.2. 1956 Unknown [id number] 2.16.8 40.1.944026.3.579.2. 1955 Unknown [id number] 2.16. 840.1.747185.3.579.2. 1955 Unknown [id number] 2.16. 840.1.741924.3.579.2 1956 Unknown [id number] 2.16. 840.1.730407.3.579.2 1955 Unknown [id number] 2.16. 840.1.382016.3.579.2 1955 Unknown [id number] 2.16. 840.1.844302.3.579.2 1955 Unknown [id number] 2.16. 840.1.899020.3.579.2 1956 Unknown [id number] 2.16. 840.1.411893.3.579.2 1955 Unknown [id number] 2.16. 840.1.261031.3.579.2. 1955 Unknown [id number] 2.16.8 40.1.984835.3.579.2. 1955 Unknown [id number] 2.16.8 40.1.200181.3.579.2 1955 Unknown [id number] 2.16.8 40.1.532027.3.579.2. 1955 Unknown [id number] 2.16.8 40.1.017302.3.579.2.627 1955 Unknown [id number] 2.16.8 40.1.217637.3.579.2.627 1955 Unknown [id number] 2.16.8 40.1.095286.3.579.2.627 1955 Unknown [id number] 2.16.8 40.1.880527.3.579.2.627 Unknown [id number] 2.16.8 40.1.860930.3.579.2.462 Unknown [id number] 2.16.8 40.1.001039.3.579.2.462 Social History Date Type Detail Facility Start: 03-31-2019 End: 09-22-2024 Never smoked tobacco (finding) [facility] Never [facility] Start: 1955 Sex Assigned At Female A [facility] Sexual Orientation [facility] Start: 08-06-2018 Sex Female (finding) [facility] Functional Status Date Assessment Result Facility 06-28-2023 Functional Status OBJECTIVE Vitals: automatic BP 112/61 Gait: amb with FWW, antalgic gait, decreased heel strike Transfers: use of UEs to help advance RLE sit <-> supine; sit to stands performed with use of bilateral UEs Sensation: no asymmetries Edema: no calf tenderness; R calf 47cm, L calf 47cm AROM: 50-91; L WNL PROM: 8 - 95 MMT: 4+/5 grossly LLE [facility] 06-25-2023 Functional Status Independent [facility] 06-25-2023 Functional Status bilateral knee high sylvia lied/on [facility] 06-25-2023 Functional Status Maintained [facility] 06-03-2023 Functional Status Sensory Deficits None [facility] 04-26-2022 Functional Status Home Living Ad ditional Information Posture: slight forward head posture BP 139/76, asymptomatic, compliance with medication 1. Spontaneous Nystagmus: neg bilat 2. End-range Nystagmus: neg bilat 3. Smooth Pursuits: normal 4. Convergence =normal 5. Divergence= normal 6. Saccades/Skew Eye Deviation : neg 7. Modified Vertebral Artery Test:neg bilat 8. Head Thrust Test/Head Impulse Test : neg bilat 9. Post-head shake nystagmus: 30deg tilt down and shake 20x [place] Hall[place]: neg bilat Roll Test: neg bilat, except pt reports feeling weird with roll test to R BBQ roll x1 R performed [facility] 01-19-2022 Functional Status Awake [facility] 01-19-2022 Functional Status Maintained [facility] 01-10-2022 Functional Status Sensory Deficits None [facility] Mental Status Date Assessment Result Facility 06-25-2023 Mental Status Orientation Oriented x 4 [facility] 12-19-2022 Cognitive function Awake;Alert;Appropriat e [facility] Work Phone: 01-19-2022 Mental Status Oriented x 4 [facility] 01-19-2022 Mental Status [facility] Clinical Notes 08-15-2021 to 09-22-2024 Note Date & Type Note Facility 09-22-2024 Progress note [facility] 09-22-2024 Progress note Note Date/Time September 22, 2024 2:08pm [facility] [address] [place] [address] OFFICE VISIT Date of Service: 09/22/24 MR#: [id number] Acct: [id number] Name: GAVIOTA DAVIES Rep #: [id number] : [id number] Provider: CAMELIA Galvan Age/Sex: 69/F Location: [facility] Status: Signed Intake Vital Signs 12/19/22 12:42 09/22/24 13:57 Height 5 ft 6 in 5 ft 6 in Weight: 183 lb 6 oz BMI 29.5 BP 110/77 Respiration 16 Pulse 80 Temp 97.0 F L Temp Source Temporal Pulse Oximetry (%) 95 Oxygen Delivery Method room air Intake Visit Reasons: Chronic GERD Chief Complaint: GERD Disciplinary Hearing Officer Required: No Accompanied by: Self Is patient in pain?: No Allergies tolterodine (From Detrol) Adverse Reaction (Intermediate, Verified 09/21/24 12:00) buzzing in ears Medications ?Medication ?Instructions ?Recorded ?Confirmed ?Type vibegron 75 mg tablet (Gemtesa) 75 mg PO DAILY 3 09/22/24 History lactobacillus combination no.9 4 4,000 mmu cells PO QD AY 09/21/24 09/22/24 History billion cell capsule (Adult 50 Plus Probiotic) multivitamin 1 tab PO QAM 09/21/24 History naratriptan 1 mg tablet See Rx Instructions PO .COMP EMANUEL PRN 09/21/24 09/22/24 History calcium 600 mg (as cap PO 09/22/24 09/22/24 His tory carbonate)-vitamin D3 12.5 mcg (500 unit) capsule (Calcium with Vit D3) esomeprazole magnesium 20 mg 30 mg PO QDAY 09/22/24 History capsule,delayed release irbesartan 300 mg tablet 150 mg PO BID 09/22/2409/22 History semaglutide (weight loss) 1 mg/0.5 1 mg subcut QWEEK 0 09/22/24 09/22/24 History mL subcutaneous pen injector (Wegovy) Have you fallen in the past year?: No PFSH Medical History (Updated 09/22/24 @ 14:02 by Jes Pace) Skin cancer Mitral valve prolapse Kidney stones Ovarian cancer UTI (urinary tract infection) Peripheral edema Migraine with aura History of kidney stones History of ovarian cancer Fatty liver Elevated HDL Diverticulosis Dermatofibroma History of basal cell carcinoma Mitral and aortic regurgitation Hypertension Surgical History History of esophagogastroduodenoscopy (EGD) H/O colonoscopy H/O wisdom tooth extraction History of tonsillectomy History of appendectomy History of total knee replacement H/O: hysterectomy H/O Achilles tendon repair Family History Mother Allergic rhinitis Alzheimer's dementia Asthma CHF (congestive heart failure) Cancer Lung DJD (degenerative joint disease) Heart disease Lymphoma Osteoporosis Father Cancer prostate and renal Hypertension Sister Cancer Depression Social History Smoking Status: Never smoker alcohol intake: current details: rare: 1 to 2 times a year substance use type: does not use what type of physical activity do you participate in: walking frequency: 5-6 times per week HPI HPI Chief Complaint: GERD Details: EGD 12/03/2016 ([facility]) normal appearing distal esophagus, gastric erythema, no PUD and no evidence of Daniels's; no biopsies obtained - on esomeprazole 20mg daily for a long time, PCP recently reduced her to 20mg daily - long h/o GERD, burning acid up to throat - symptoms are controlled with esomeprazole - reports stopping esomeprazole for 3 days caused increased HB - denies any family h/o esophageal or gastric CA - as long as she takes the PPI her symptoms are well controlled, unless she has trigger foods such as wine - decreased dose is controlling symptoms - some N/V with Wegovy - denies any dysphagia/globus sensation as long as she takes PPI - colonoscopy November 2023 at [place] - per patient this was unremarkable - MVP - denies any pulmonary or renal disease ROS Const Constitutional: No fatigue, fever(s) or weight change ENT ENT: No difficulty swallowing Gastro GI: No abdominal pain, belching, bloating, change in bowel habits, change in stool character, coffee ground emesis, constipation, cramping, diarrhea, heartburn, difficulty swallowing, feeling full early, excessive flatus, incontinent of stools, Vomiting blood/hematemesis, Blood in stool, loose stools,Black,tarry stools, nausea/dyspepsia, pain with swallowing, vomiting or other Musc Musculoskeletal: No joint pain Skin Skin: No yellowing of the eye or itchy eyes Psych Psychiatric: No anxiety and No depression Endo Endocrine: No fatigue or weight change Aller/Imm Allergy/Immunologic: No itchy eyes Varghese/Lymp Hematologic/Lymphatic: No easy bleeding or easy bruising Exam Const General: cooperative, healthy appearing, no acute distress and well developed Nutritional Appearance: average body habitus and well nourished Orientation: alert and oriented x3 HENMT Head: normocephalic Ears: hearing grossly normal bilaterally Mouth: moist mucous membranes Teeth and gingiva: dentition normal Eyes Conjunctivae: conjunctivae normal Sclera: sclerae normal Neck Neck: normal visual inspection, full ROM and trachea midline Resp Effort & Inspection: normal respiratory effort, able to speak in complete sentences and symmetric chest movement Skin General: no rashes or lesions noted and turgor normal Neuro General: patient alert and patient oriented x3 Cranial Nerves: other (CN's grossly intact, non-focal exam) Cognition: normal cognition Speech: speech normal Gait: normal gait Extrem General: normal to inspection (no edema noted) Psych Appearance: grossly normal and well kempt Affect: normal affect Attitude: cooperative Thought Process: normal Assessment and Plan Assessment and Plan (1) GERD (gastroesophageal reflux disease): Status: Acute Plan 69y/o female presents for initial consultation of GERD. PMH significant for HTN,HDL, basal cell carcinoma, GERD, fatty liver, and ovarian CA. EGD was last performed in 2017 ([facility]) and revealed gastric erythema, otherwise unremarkable. Review of medications is significant for esomeprazole 20mg QD, meloxicam 15mg PRN and Wegovy SQ weekly. She reports previously holding PPI has caused an increase in reflux symptoms and globus sensation. We have discussed the theoretical risks of PPI therapy. She will proceed with an EGD at this time. Patient Instructions: Continue PPI daily PPIs are the most effective medical treatment for GERD. Some medical studies have identified an association between the long-term use of PPIs and the development of numerous adverse conditions including intestinal infections, pneumonia, stomach cancer, osteoporosis-related bone fractures, chronic kidney disease, deficiencies of certain vitamins and minerals, heart attacks, strokes, dementia, and early . Those studies have flaws, are not considered definitive, and do not establish a ffapt-fvs-etlqlc relationship between PPIs and the adverse conditions. High-quality studies have found that PPIs do not significantly increase the risk of any of these conditions except intestinal infections. Nevertheless, we cannot exclude the possibility that PPIs might confer a small increase in the risk of developing these adverse conditions. For the treatment of GERD, gastroenterologists generally agree that the well-established benefits of PPIs far outweigh their theoretical risks. Coding Level of Care Code Off vis,new,level 3 Diagnoses GERD (gastroesophageal reflux disease) K21.9 Clinical Quality Measures Falls Risk Screening/Assistive Devices Have you fallen in the past year?: No Smoking Screening Smoking Status: Never smoker 09/22/24 3347 <Electronically signed by Stacey DENISE> Date _ Stacey Galvan NP-C Cosigner Signature: Date (if applicable) CC: Dr. Bear Haines, DO ~ [facility] [employer] Work Phone: [phone] Hospital Discharge instructions Patient Education 06/25/2023 09:23:28 Monitored Anesthesia Care, Care After Monitored Anesthesia Care, Care After These instructions provide you with information about caring for yourself after your procedure. Your health care provider may also give you more specific instructions. Your treatment has been plannedaccording to current medical practices, but problems sometimes occur. Call your health care provider if you have any problems or questions after your procedure. What can I expect after the procedure? After your procedure, you may: Feel sleepy for several hours. Feel clumsy and have poor balance for several hours. Feel forgetful about what happened after the procedure. Have poor judgment for several hours. Feel nauseous or vomit. Have a sore throat if you had a breathing tube during the procedure. Follow these instructions at home: For at least 24 hours after the procedure: Have a responsible adult stay with you. It is important to have someone help care for you until youare awake and alert. Rest as needed. Do not: ?Participate in activities in which you could fall or become injured. ?Drive. ?Use heavy machinery. ?Drink alcohol. ?Take sleeping pills or medicines that cause drowsiness. ?Make important decisions or sign legal documents. ?Take care of children on your own. Eating and drinking Follow the diet that is recommended by your health care provider. If you vomit, drink water, juice, or soup when you can drink without vomiting. Make sure you have little or no nausea before eating solid foods. General instructions Take ajet-djv-uhztvxw and prescription medicines only as told by your health care provider. If you have sleep apnea, surgery and certain medicines can increase your risk for breathing problems. Follow instructions from your health care provider about wearing your sleep device: ?Anytime you are sleeping, including during daytime naps. ?While taking prescription pain medicines, sleeping medicines, or medicines that make you drowsy. If you smoke, do not smoke without supervision. Keep all follow-up visits as told by your health care provider. This is important. Contact a health care provider if: You keep feeling nauseous or you keep vomiting. You feel light-headed. You develop a rash. You have a fever. Get help right away if: You have trouble breathing. Summary For several hours after your procedure, you may feel sleepy and have poor judgment. Have a responsible adult stay with you for at least 24 hours or until you are awake and alert. This information is not intended to replace advice given to you by your health care provider. Make sure you discuss any questions you have with your health care provider. Document Released: 05/20/2016 Document Revised: 04/28/2018 Document Reviewed: 05/20/2016 [employer] Patient Education 2020 [employer]. 06/25/2023 09:23:22 Nausea and Vomiting, Adult Nausea and Vomiting, Adult Nausea is the feeling that you have an upset stomach or that you are about to vomit. Vomiting is when stomach contents are thrown up and out of the mouth as a result of nausea. Vomiting can make you feel weak and cause you to become dehydrated. Dehydration can make you feel tired and thirsty, cause you to have a dry mouth, and decrease how often you urinate. Older adults and people with other diseases or a weak disease-fighting system (immune system) are at higher risk for dehydration. It is important to treat your nausea and vomiting as told by your health care provider. Follow these instructions at home: Watch your symptoms for any changes. Tell your health care provider about them. Follow these instructions to care for yourself at home. Eating and drinking Take an oral rehydration solution (ORS). This is a drink that is sold at pharmacies and retail stores. Drink clear fluids slowly and in small amounts as you are able. Clear fluids include water, ice chips, low-calorie sports drinks, and fruit juice that has water added (diluted fruit juice). Eat bland, bxus-jt-polchz foods in small amounts as you are able. These foods include bananas, applesauce, rice, lean meats, toast, and crackers. Avoid fluids that contain a lot of sugar or caffeine, such as energy drinks, sports drinks, and soda. Avoid alcohol. Avoid spicy or fatty foods. General instructions Take irvn-lvv-raaldkj and prescription medicines only as told by your health care provider. Drink enough fluid to keep your urine pale yellow. Wash your hands often using soap and water. If soap and water are not available, use hand airport representative. Make sure that all people in your household wash their hands well and often. Rest at home while you recover. Watch your condition for any changes. Breathe slowly and deeply when you feel nauseated. Keep all follow-up visits as told by your health care provider. This is important. Contact a health care provider if: Your symptoms get worse. You have new symptoms. You have a fever. You cannot drink fluids without vomiting. Your nausea does not go away after 2 days. You feel light-headed or dizzy. You have a headache. You have muscle cramps. You have a rash. You have pain while urinating. Get help right away if: You have pain in your chest, neck, arm, or jaw. You feel extremely weak or you faint. You have persistent vomiting. You have vomit that is bright red or looks like black coffee grounds. You have bloody or black stools or stools that look like tar. You have a severe headache, a stiff neck, or both. You have severe pain, cramping, or bloating in your abdomen. You have difficulty breathing, or you are breathing very quickly. Your heart is beating very quickly. Your skin feels cold and clammy. You feel confused. You have signs of dehydration, such as: ?Dark urine, very little urine, or no urine. ?Cracked lips. ?Dry mouth. ?Sunken eyes. ?Sleepiness. ?Weakness. These symptoms may represent a serious problem that is an emergency. Do not wait to see if the symptoms will go away. Get medical help right away. Call your local emergency services (911 in the [place] Do not drive yourself to the hospital. Summary Nausea is the feeling that you have an upset stomach or that you are about to vomit. As nausea getsworse, it can lead to vomiting. Vomiting can make you feel weak and cause you to become dehydrated. Follow instructions from your health care provider about eating and drinking to prevent dehydration. Take icdy-wlu-ltbprek and prescription medicines only as told by your health care provider. Contact your health care provider if your symptoms get worse, or you have new symptoms. Keep all follow-up visits as told by your health care provider. This is important. This information is not intended to replace advice given to you by your health care provider. Make sure you discuss any questions you have with your health care provider. Document Released: 01/28/2006 Document Revised: 05/22/2019 Document Reviewed: 07/08/2018 [employer] Patient Education 2020 [employer]. 06/25/2023 09:23:02 Spinal Anesthesia and Epidural Anesthesia, Care After Spinal Anesthesia and Epidural Anesthesia, Care After These instructions provide you with information about caring for yourself after your procedure. Your health care provider may also give you more specific instructions. Your treatment has been plannedaccording to current medical practices, but problems sometimes occur. Call your health care provider if you have any problems or questions after your procedure. What can I expect after the procedure? After the procedure, it is common to have: Sleepiness. Nausea. Vomiting. Numbness or tingling in your legs. Trouble urinating. Itching. Follow these instructions at home: For at least 24 hours after the procedure: Have a responsible adult stay with you. It is important to have someone help care for you until youare awake and alert. Rest as needed. Do not: ?Participate in activities in which you could fall or become injured. ?Drive. ?Use heavy machinery. ?Drink alcohol. ?Take sleeping pills or medicines that cause drowsiness. ?Make important decisions or sign legal documents. ?Take care of children on your own. Eating and drinking If you vomit, drink water, juice, or soup when you can drink without vomiting. Drink enough fluid to keep your urine pale yellow. Make sure you have little or no nausea before eating solid foods. Follow the diet recommended by your health care provider. General instructions Return to your normal activities as told by your health care provider. Ask your health care provider what activities are safe for you. Take bnfu-tmr-nrhukkj and prescription medicines only as told by your health care provider. If you have sleep apnea, surgery and certain medicines can increase your risk for breathing problems. Follow instructions from your health care provider about wearing your sleep device: ?Anytime you are sleeping, including during daytime naps. ?While taking prescription pain medicines, sleeping medicines, or medicines that make you drowsy. Do not use any products that contain nicotine or tobacco, such as cigarettes and e-cigarettes. If you need help quitting, ask your health care provider. If you smoke, do not smoke without supervision. Keep all follow-up visits as told by your health care provider. This is important. Contact a health care provider if: You have nausea and vomiting that continue the day after anesthetic medicine was given. You develop a rash. Get help right away if: You have a fever. You have a persistent or severe headache. You develop blurred or double vision. You develop dizziness or feel light-headed. You faint. You have weakness, numbness, or tingling in your arms or legs. You have difficulty breathing. You are unable to pass urine. Summary After your procedure, it is common to have sleepiness, nausea, vomiting, and trouble passing urine. For at least 24 hours after the procedure, do not do things that will make you more likely to get hurt. Also, do not drive, use heavy machinery, or make important decisions. Do not eat solid foods until you have no nausea and no vomiting. Do not use products that contain nicotine or tobacco. Get help if you have a fever, persistent headache, blurred or double vision, weakness or numbness in arms and legs, or difficulty breathing or passing urine. This information is not intended to replace advice given to you by your health care provider. Make sure you discuss any questions you have with your health care provider. Document Released: 04/19/2004 Document Revised: 07/20/2019 Document Reviewed: 05/21/2016 [employer] Patient Education 2020 [employer] 06/25/2023 09:22:54 Total Knee Replacement, Care After Total Knee Replacement, Care After This sheet gives you information about how to care for yourself after your procedure. Your health care provider may also give you more specific instructions. If you have problems or questions, contact your health care provider. What can I expect after the procedure? After the procedure, it is common to have: Pain. Swelling. A small amount of blood or clear fluid coming from your incision. Limited range of motion. Follow these instructions at home: Medicines Take pgih-oxi-coxtouz and prescription medicines only as told by your health care provider. If you were prescribed a blood thinner (anticoagulant), take it as told by your health care provider. Ask your health care provider if the medicine prescribed to you: ?Requires you to avoid driving or using heavy machinery. ?Can cause constipation. You may need to take actions to prevent or treat constipation, such as: ?Drink enough fluid to keep your urine pale yellow. ?Take ivvw-svj-upsagqu or prescription medicines. ?Eat foods that are high in fiber, such as beans, whole grains, and fresh fruits and vegetables. ?Limit foods that are high in fat and processed sugars, such as fried or sweet foods. Bathing Do not take baths, swim, or use a hot tub until your health care provider approves. Ask your healthcare provider if you may take showers. You may only be allowed to take sponge baths. Keep your bandage (dressing) dry until your health care provider says it can be removed. Incision care and drain care Follow instructions from your health care provider about how to take care of your incision. Make sure you: ?Wash your hands with soap and water before and after you change your dressing. If soap and water are not available, use hand airport representative. ?Change your dressing as told by your health care provider. ?Leave stitches (sutures), skin glue, or adhesive strips in place. These skin closures may need to stay in place for 2 weeks or longer. If adhesive strip edges start to loosen and curl up, you may trim the loose edges. Do not remove adhesive strips completely unless your health care provider tells you to do that. Check your incision area and drain site every day for signs of infection. Check for: ?More redness, swelling, or pain. ?More fluid or blood. ?Warmth. ?Pus or a bad smell. If you have a drain, follow instructions from your health care provider about caring for it. Managing pain, stiffness, and swelling If directed, put ice on your knee. ?Put ice in a plastic bag or use the icing device (cold flow pad or cryocuff) that you were given. Follow instructions from your health care provider about how to use the icing device. ?Place a towel between your skin and the bag or between your skin and the icing device. ?Leave the ice on for 20 minutes, 2 3 times per day. If directed, apply heat to the affected area before you exercise. Use the heat source that your health care provider recommends, such as a moist heat pack or a heating pad. ?Place a towel between your skin and the heat source. ?Leave the heat on for 20 30 minutes. ?Remove the heat if your skin turns bright red. This is especially important if you are unable to feel pain, heat, or cold. You may have a greater risk of getting burned. Move your toes often to avoid stiffness and to lessen swelling. Raise (elevate) your leg above the level of your heart while you are sitting or lying down. ?Use several pillows to keep your leg straight. ?Do not put a pillow just under the knee. If the knee is bent for a long time, this may lead to stiffness. Wear elastic knee support as told by your health care provider. Activity Rest as told by your health care provider. Avoid sitting for a long time without moving. Get up to take short walks every 1 2 hours. This is important to improve blood flow and breathing. Ask for help if you feel weak or unsteady. Ask your health care provider what activities are safe for you. Avoid high-impact activities, including running, jumping rope, and jumping jacks. Do not play contact sports until your health care provider approves. Do exercises as told by your physical therapist. If you have been sent home with a continuous passive motion machine, use it as told by your health care provider. Safety Do not use your leg to support your body weight until your health care provider approves. Use crutches or a walker as told by your health care provider. Do not drive until your health care provider approves. Ask your health care provider when it is safe to drive. General instructions Do not use any products that contain nicotine or tobacco, such as cigarettes, e- cigarettes, and chewing tobacco. These can delay healing after surgery. If you need help quitting, ask your health careprovider. Wear compression stockings as told by your health care provider. Tell your health care provider if you plan to have dental work. Also: ?Tell your dentist about your joint replacement. ?Ask your health care provider if there are any special instructions you need to follow before having dental care and routine cleanings. Keep all follow-up visits as told by your health care provider. This is important. Contact a health care provider if you have: More redness, swelling, or pain around your incision or drain. More fluid or blood coming from your incision or drain. Pus or a bad smell coming from your incision or drain. Warmth on your incision or drain site. A fever. An incision that breaks open. Knee pain that does not go away. Range of motion in your knee that is getting worse. A prosthesis that feels loose. Get help right away if you have: Pain or swelling in your calf or thigh. Shortness of breath or difficulty breathing. Chest pain. Summary After the procedure, it is common to have pain and swelling, blood or fluid coming from your incision, and limited range of motion. Follow instructions from your health care provider about how to take care of your incision. Use crutches or a walker as told by your health care provider. If you were prescribed a blood thinner (anticoagulant), take it as told by your health care provider. Keep all follow-up visits as told by your health care provider. This is important. This information is not intended to replace advice given to you by your health care provider. Make sure you discuss any questions you have with your health care provider. Document Released: 08/17/2005 Document Revised: 06/08/2019 Document Reviewed: 09/11/2018 [employer] Patient Education 2020 [employer]. Follow Up Care 05/01/2023 08:13:39 With:NORMAN HODGES PA-C, Orthopedic Address: [facility] [address] [place] [address]- When:07/10/2023 13:45:00 Comments:Follow-up as scheduled [facility] 05-14-2024 Summary of episode note Discharge Instructions Thank you for allowing [facility] to assist you with your healthcare needs. The following is importantdischarge information regarding your hospital visit. Your Care Team [facility] DO What to do next Scheduled Follow-Up Appointments Appointment Type When With Where Contact InformationPT Outpatient Evaluation 06/28/2023 09:00 AM EDT [facility] [phone] [facility] Medicare 08/27/2023 03:00 PM EDT [facility] [address] [place] [id number] Follow Up Appointments Follow Up with NORMAN HODGES PA-C, Orthopedic When 07/10/2023 01:45 PM EDT Why: Follow-up as scheduled Where: [facility] [address] [facility] [place] [address]- Allergies Detrol (BUZZING IN HEAD) Medications Please ask your primary doctor or pharmacist before taking any other medication not listed, including over the counter drugs, herbal medications, vitamins and or supplements as they may interact withyour home medications. What How Much When Instructions Last Dose Unchanged calcium-vitamin D (calcium- vitamin D 600 mg-200intl units oral capsule) by mouth Two (2) times a day Unchanged cholecalciferol (Vitamin D3 25 mcg (1000 intl units) oral capsule) 1 cap by mouth Every day Unchanged esomeprazole (esomeprazole 40 mg oral delayed release capsule) 1 cap by mouth Once a day before a meal Duration: 100 Days on an empty stomach Unchanged herbal/ nutritional product (Probiotic) 1 TABLET by mouth Once a day Unchanged ibuprofen (Advil 200 mg oral tablet) 2 tab(s) by mouth Every 4 hours as needed for as needed for pain Unchanged irbesartan (irbesartan 150 mg oral tablet) 1 tab(s) by mouth Two (2) times a day Unchanged multivitamin (Multivitamin) 1 tab(s) by mouth Every day Unchanged naratriptan (Amerge 1 mg oral tablet) 1 tab(s) by mouth Once a day as needed for as needed for migraine headache Unchanged vibegron (Gemtesa 75 mg oral tablet) 1 tab(s) by mouth Once a day Please take this list to your next doctor s visit. Bring all medications you take, including over the counter medications, herbals and other supplements with you to your doctor s visit. Patients and families are reminded to discard old lists and to update any records with all medication providers or retail pharmacies. Education Materials Monitored Anesthesia Care, Care After These instructions provide you with information about caring for yourself after your procedure. Your health care provider may also give you more specific instructions. Your treatment has been plannedaccording to current medical practices, but problems sometimes occur. Call your health care provider if you have any problems or questions after your procedure. What can I expect after the procedure? After your procedure, you may: Feel sleepy for several hours. Feel clumsy and have poor balance for several hours. Feel forgetful about what happened after the procedure. Have poor judgment for several hours. Feel nauseous or vomit. Have a sore throat if you had a breathing tube during the procedure. Follow these instructions at home: For at least 24 hours after the procedure: Have a responsible adult stay with you. It is important to have someone help care for you until youare awake and alert. Rest as needed. Do not: ? Participate in activities in which you could fall or become injured. ? Drive. ? Use heavy machinery. ? Drink alcohol. ? Take sleeping pills or medicines that cause drowsiness. ? Make important decisions or sign legal documents. ? Take care of children on your own. Eating and drinking Follow the diet that is recommended by your health care provider. If you vomit, drink water, juice, or soup when you can drink without vomiting. Make sure you have little or no nausea before eating solid foods. General instructions Take sorm-vmp-apyrjqd and prescription medicines only as told by your health care provider. If you have sleep apnea, surgery and certain medicines can increase your risk for breathing problems. Follow instructions from your health care provider about wearing your sleep device: ? Anytime you are sleeping, including during daytime naps. ? While taking prescription pain medicines, sleeping medicines, or medicines that make you drowsy. If you smoke, do not smoke without supervision. Keep all follow-up visits as told by your health care provider. This is important. Contact a health care provider if: You keep feeling nauseous or you keep vomiting. You feel light-headed. You develop a rash. You have a fever. Get help right away if: You have trouble breathing. Summary For several hours after your procedure, you may feel sleepy and have poor judgment. Have a responsible adult stay with you for at least 24 hours or until you are awake and alert. This information is not intended to replace advice given to you by your health care provider. Make sure you discuss any questions you have with your health care provider. Document Released: 05/20/2016 Document Revised: 04/28/2018 Document Reviewed: 05/20/2016 [employer] Patient Education 2020 [employer]. Nausea and Vomiting, Adult Nausea is the feeling that you have an upset stomach or that you are about to vomit. Vomiting is when stomach contents are thrown up and out of the mouth as a result of nausea. Vomiting can make you feel weak and cause you to become dehydrated. Dehydration can make you feel tired and thirsty, cause you to have a dry mouth, and decrease how often you urinate. Older adults and people with other diseases or a weak disease-fighting system (immune system) are at higher risk for dehydration. It is important to treat your nausea and vomiting as told by your health care provider. Follow these instructions at home: Watch your symptoms for any changes. Tell your health care provider about them. Follow these instructions to care for yourself at home. Eating and drinking Take an oral rehydration solution (ORS). This is a drink that is sold at pharmacies and retail stores. Drink clear fluids slowly and in small amounts as you are able. Clear fluids include water, ice chips, low-calorie sports drinks, and fruit juice that has water added (diluted fruit juice). Eat bland, gtnt-yj-yksyol foods in small amounts as you are able. These foods include bananas, applesauce, rice, lean meats, toast, and crackers. Avoid fluids that contain a lot of sugar or caffeine, such as energy drinks, sports drinks, and soda. Avoid alcohol. Avoid spicy or fatty foods. General instructions Take iudm-bbb-yelkfyz and prescription medicines only as told by your health care provider. Drink enough fluid to keep your urine pale yellow. Wash your hands often using soap and water. If soap and water are not available, use hand airport representative. Make sure that all people in your household wash their hands well and often. Rest at home while you recover. Watch your condition for any changes. Breathe slowly and deeply when you feel nauseated. Keep all follow-up visits as told by your health care provider. This is important. Contact a health care provider if: Your symptoms get worse. You have new symptoms. You have a fever. You cannot drink fluids without vomiting. Your nausea does not go away after 2 days. You feel light-headed or dizzy. You have a headache. You have muscle cramps. You have a rash. You have pain while urinating. Get help right away if: You have pain in your chest, neck, arm, or jaw. You feel extremely weak or you faint. You have persistent vomiting. You have vomit that is bright red or looks like black coffee grounds. You have bloody or black stools or stools that look like tar. You have a severe headache, a stiff neck, or both. You have severe pain, cramping, or bloating in your abdomen. You have difficulty breathing, or you are breathing very quickly. Your heart is beating very quickly. Your skin feels cold and clammy. You feel confused. You have signs of dehydration, such as: ? Dark urine, very little urine, or no urine. ? Cracked lips. ? Dry mouth. ? Sunken eyes. ? Sleepiness. ? Weakness. These symptoms may represent a serious problem that is an emergency. Do not wait to see if the symptoms will go away. Get medical help right away. Call your local emergency services (911 in the [place] Do not drive yourself to the hospital. Summary Nausea is the feeling that you have an upset stomach or that you are about to vomit. As nausea getsworse, it can lead to vomiting. Vomiting can make you feel weak and cause you to become dehydrated. Follow instructions from your health care provider about eating and drinking to prevent dehydration. Take jena-ffk-rxiihql and prescription medicines only as told by your health care provider. Contact your health care provider if your symptoms get worse, or you have new symptoms. Keep all follow-up visits as told by your health care provider. This is important. This information is not intended to replace advice given to you by your health care provider. Make sure you discuss any questions you have with your health care provider. Document Released: 01/28/2006 Document Revised: 05/22/2019 Document Reviewed: 07/08/2018 Elsevier Patient Education 2020 [employer] Spinal Anesthesia and Epidural Anesthesia, Care After These instructions provide you with information about caring for yourself after your procedure. Your health care provider may also give you more specific instructions. Your treatment has been plannedaccording to current medical practices, but problems sometimes occur. Call your health care provider if you have any problems or questions after your procedure. What can I expect after the procedure? After the procedure, it is common to have: Sleepiness. Nausea. Vomiting. Numbness or tingling in your legs. Trouble urinating. Itching. Follow these instructions at home: For at least 24 hours after the procedure: Have a responsible adult stay with you. It is important to have someone help care for you until youare awake and alert. Rest as needed. Do not: ? Participate in activities in which you could fall or become injured. ? Drive. ? Use heavy machinery. ? Drink alcohol. ? Take sleeping pills or medicines that cause drowsiness. ? Make important decisions or sign legal documents. ? Take care of children on your own. Eating and drinking If you vomit, drink water, juice, or soup when you can drink without vomiting. Drink enough fluid to keep your urine pale yellow. Make sure you have little or no nausea before eating solid foods. Follow the diet recommended by your health care provider. General instructions Return to your normal activities as told by your health care provider. Ask your health care provider what activities are safe for you. Take vtjg-opn-jrdsflx and prescription medicines only as told by your health care provider. If you have sleep apnea, surgery and certain medicines can increase your risk for breathing problems. Follow instructions from your health care provider about wearing your sleep device: ? Anytime you are sleeping, including during daytime naps. ? While taking prescription pain medicines, sleeping medicines, or medicines that make you drowsy. Do not use any products that contain nicotine or tobacco, such as cigarettes and e-cigarettes. If you need help quitting, ask your health care provider. If you smoke, do not smoke without supervision. Keep all follow-up visits as told by your health care provider. This is important. Contact a health care provider if: You have nausea and vomiting that continue the day after anesthetic medicine was given. You develop a rash. Get help right away if: You have a fever. You have a persistent or severe headache. You develop blurred or double vision. You develop dizziness or feel light-headed. You faint. You have weakness, numbness, or tingling in your arms or legs. You have difficulty breathing. You are unable to pass urine. Summary After your procedure, it is common to have sleepiness, nausea, vomiting, and trouble passing urine. For at least 24 hours after the procedure, do not do things that will make you more likely to get hurt. Also, do not drive, use heavy machinery, or make important decisions. Do not eat solid foods until you have no nausea and no vomiting. Do not use products that contain nicotine or tobacco. Get help if you have a fever, persistent headache, blurred or double vision, weakness or numbness in arms and legs, or difficulty breathing or passing urine. This information is not intended to replace advice given to you by your health care provider. Make sure you discuss any questions you have with your health care provider. Document Released: 04/19/2004 Document Revised: 07/20/2019 Document Reviewed: 05/21/2016 [employer] Patient Education 2020 [employer] Total Knee Replacement, Care After This sheet gives you information about how to care for yourself after your procedure. Your health care provider may also give you more specific instructions. If you have problems or questions, contact your health care provider. What can I expect after the procedure? After the procedure, it is common to have: Pain. Swelling. A small amount of blood or clear fluid coming from your incision. Limited range of motion. Follow these instructions at home: Medicines Take karw-acz-fuxilnq and prescription medicines only as told by your health care provider. If you were prescribed a blood thinner (anticoagulant), take it as told by your health care provider. Ask your health care provider if the medicine prescribed to you: ? Requires you to avoid driving or using heavy machinery. ? Can cause constipation. You may need to take actions to prevent or treat constipation, such as: ? Drink enough fluid to keep your urine pale yellow. ? Take cvfo-gqm-jbwftrm or prescription medicines. ? Eat foods that are high in fiber, such as beans, whole grains, and fresh fruits and vegetables. ? Limit foods that are high in fat and processed sugars, such as fried or sweet foods. Bathing Do not take baths, swim, or use a hot tub until your health care provider approves. Ask your healthcare provider if you may take showers. You may only be allowed to take sponge baths. Keep your bandage (dressing) dry until your health care provider says it can be removed. Incision care and drain care Follow instructions from your health care provider about how to take care of your incision. Make sure you: ? Wash your hands with soap and water before and after you change your dressing. If soap and water are not available, use hand airport representative. ? Change your dressing as told by your health care provider. ? Leave stitches (sutures), skin glue, or adhesive strips in place. These skin closures may need to stay in place for 2 weeks or longer. If adhesive strip edges start to loosen and curl up, you may trim the loose edges. Do not remove adhesive strips completely unless your health care provider tells you to do that. Check your incision area and drain site every day for signs of infection. Check for: ? More redness, swelling, or pain. ? More fluid or blood. ? Warmth. ? Pus or a bad smell. If you have a drain, follow instructions from your health care provider about caring for it. Managing pain, stiffness, and swelling If directed, put ice on your knee. ? Put ice in a plastic bag or use the icing device (cold flow pad or cryocuff) that you were given. Follow instructions from your health care provider about how to use the icing device. ? Place a towel between your skin and the bag or between your skin and the icing device. ? Leave the ice on for 20 minutes, 2 3 times per day. If directed, apply heat to the affected area before you exercise. Use the heat source that your health care provider recommends, such as a moist heat pack or a heating pad. ? Place a towel between your skin and the heat source. ? Leave the heat on for 20 30 minutes. ? Remove the heat if your skin turns bright red. This is especially important if you are unable to feel pain, heat, or cold. You may have a greater risk of getting burned. Move your toes often to avoid stiffness and to lessen swelling. Raise (elevate) your leg above the level of your heart while you are sitting or lying down. ? Use several pillows to keep your leg straight. ? Do not put a pillow just under the knee. If the knee is bent for a long time, this may lead to stiffness. Wear elastic knee support as told by your health care provider. Activity Rest as told by your health care provider. Avoid sitting for a long time without moving. Get up to take short walks every 1 2 hours. This is important to improve blood flow and breathing. Ask for help if you feel weak or unsteady. Ask your health care provider what activities are safe for you. Avoid high-impact activities, including running, jumping rope, and jumping jacks. Do not play contact sports until your health care provider approves. Do exercises as told by your physical therapist. If you have been sent home with a continuous passive motion machine, use it as told by your health care provider. Safety Do not use your leg to support your body weight until your health care provider approves. Use crutches or a walker as told by your health care provider. Do not drive until your health care provider approves. Ask your health care provider when it is safe to drive. General instructions Do not use any products that contain nicotine or tobacco, such as cigarettes, e- cigarettes, and chewing tobacco. These can delay healing after surgery. If you need help quitting, ask your health careprovider. Wear compression stockings as told by your health care provider. Tell your health care provider if you plan to have dental work. Also: ? Tell your dentist about your joint replacement. ? Ask your health care provider if there are any special instructions you need to follow before having dental care and routine cleanings. Keep all follow-up visits as told by your health care provider. This is important. Contact a health care provider if you have: More redness, swelling, or pain around your incision or drain. More fluid or blood coming from your incision or drain. Pus or a bad smell coming from your incision or drain. Warmth on your incision or drain site. A fever. An incision that breaks open. Knee pain that does not go away. Range of motion in your knee that is getting worse. A prosthesis that feels loose. Get help right away if you have: Pain or swelling in your calf or thigh. Shortness of breath or difficulty breathing. Chest pain. Summary After the procedure, it is common to have pain and swelling, blood or fluid coming from your incision, and limited range of motion. Follow instructions from your health care provider about how to take care of your incision. Use crutches or a walker as told by your health care provider. If you were prescribed a blood thinner (anticoagulant), take it as told by your health care provider. Keep all follow-up visits as told by your health care provider. This is important. This information is not intended to replace advice given to you by your health care provider. Make sure you discuss any questions you have with your health care provider. Document Released: 08/17/2005 Document Revised: 06/08/2019 Document Reviewed: 09/11/2018 Elsevier Patient Education 2020 [email or web address] Additional Information VACCINATE! IT SAVES LIVES! Members of the community who have not yet received the COVID-19 vaccine and would like to receive it can visit one of [facility] vaccine clinics. There are many vaccine clinic locations within the [facility]. For locations and available times, please visit https://gettheshot.coronavirus.[place].gov/. It is important to note that some COVID mobile vaccine clinics are held outdoors and may be canceled in rainy or stormy conditions. To learn more about pediatric vaccinations (ages 5-11), we invite you to visit the [employer] webpage. https://www.[employer].org/pages/[email or web address]-Tnvlb-Nrcaiogrsmw-Vfoaxuecig-Wjkey-Guz stions.htmlTo learn more about the COVID-19 vaccine, we invite you to visit the CDC website for a list of frequently asked questions.https://www.cdc.gov/coronavirus/2019-ncov/vaccines/faq.html [facility] Patient Portal Access Instructions: Stay connected with your healthcare team and access your personal medical information anytime with the [facility] Patient Portal. Please follow the directions below to create your BringIt account: 1.Access the email account you provided upon registration to the hospital/physician office.2.Look for an invitation email from [facility].3.Open the email and access the invitation link: AcceptInvitation to BringIt.4.Fill in the required vogt to create your account. To access your account, visit [email or web address]. Click the blue button labeled Access Patient Portal and then log in with the username and password that you created in the steps above. You will be able to view your test results, lab results, a summary of your visits, upcoming appointments and more. There is also a convenient messaging option where you can send secure messages to your p rovider. In addition, you will have the ability to download any documents or summaries to your computer and/or send the information securely to a physician. Remember that your healthcare information is confidential, so carefully consider who you will allowto register on the [facility] Patient Portal for access to your information. You can also access the [facility] on the [place] [facility] sylvia. Simply click on Patient Portal and then log into your account. If you would like to receive a full copy of your medical records, please contact the [facility] Medical Records Department by calling [phone], Saturday through Saturday between 8 a.m. and 4:30 p.m. HOW TO SAFELY DISPOSE OF PRESCRIPTION MEDICATIONS Please use one of the following methods to safely dispose of your unused medications. 1.Use a drug disposal kit: the drug disposal pouch allows you to safely discard your old and unuseddrugs. Ask your nurse to give you one when you are discharged.2.Visit a local take-back location: Many local pharmacies and police departments have programs that collect old and unwanted prescriptiondrugs. Call your local pharmacy or go to http://misterbnb/2Q3Gt5w to find one close to you.3.Make use of household items: Use cat litter or old coffee grounds to dispose medications if other options arenot available. Mix your drugs with these household products, seal them in an airtight container andthrow it into the garbage. Call [facility]: [phone] to be sure your drugs can be disposed of in this way. Some medicines may require a different approach.4.Never flush your medications down the toilet. IF YOU HAVE BEEN PRESCRIBED AN OPIOID FOR PAIN If you have been prescribed an opioid (such as hydrocodone, oxycodone or morphine), it is critical to understand the possible side effects and risks of opioid pain medications. Even when taken as directed, opioids can have several side effects including: Tolerance, meaning you might need to take more of a medication for the same pain relief. Nausea, vomiting and/or constipation. Sleepiness, dizziness, dry mouth, confusion, depression or itching. Physical dependence, meaning you have withdrawal symptoms when a medication is stopped, can develop within a few days. KNOW YOUR RESPONSIBILITIES It is important to know exactly how much and how often to take the opioid pain medications you are prescribed. Never take opioids in higher amounts or more often than prescribed. Do not combine opioids with alcohol or other drugs that cause drowsiness, such as benzodiazepines, also known as benzos, including diazepam and alprazolam, muscle relaxants or sleep aids. Never sell or share prescription opioids. This is illegal. Store opioids in a secure place and out of reach of others (including children, family, friends and visitors). The last page of this document has been signed and retained as a CHART COPY. Signatures Patient Education Materials Monitored Anesthesia Care, Care After Nausea and Vomiting, Adult Spinal Anesthesia and Epidural Anesthesia, Care After Total Knee Replacement, Care After Medication Leaflets My discharge plan and instructions have been reviewed and explained to me and I,DAVIES GAVIOTA Shey understand my current condition and have read and understand these discharge instructions. I have received a written copy of the plan/instructions. If I have questions, I am aware that I should contact my doctor. Patient/Para Educator Signature: Date/Time: Relationship to Patient: Witness Name/Signature: Date/Time: [facility]05-14-2024 Note ORIGINAL EXAMINATION: POSTOPERATIVE KNEE TECHNIQUE: 2 views of theright knee were obtained. COMPARISON: CT right knee 06/03/2023 HISTORY: ORDERING SYSTEM PROVIDED HISTORY: Reason for Exam: Status Post Arthroplasty FINDINGS: There is normal mineralization. No acute fracture or dislocation is seen. The patient is status post right knee replacement with appropriate positioning of the prosthesis. There are postsurgical changes with a small joint effusion. IMPRESSION: Status post right knee replacement with appropriate positioning of the prosthesis. 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 Assessment Postanesthesia assessment Vitals: Vital signs from flowsheet : Vital Signs 06/25/2023 8:35 EDT Heart Rate Monitored 56 bpm bpm Respiratory Rate - Anes 8 br/min br/min Systolic Blood Pressure Non-Invasive 90 mmHg mmHg Diastolic Blood Pressure Non-Invasive 57 mmHg mmHg 06/25/2023 8:30 EDT Temperature (Route Not Specified) 36 DegC DegC Heart Rate Monitored 57 bpm bpm Respiratory Rate - Anes 9 br/min br/min Systolic Blood Pressure Non-Invasive 89 mmHg mmHg Diastolic Blood Pressure Non-Invasive 51 mmHg mmHg 06/25/2023 8:25 EDT Heart Rate Monitored 57 bpm bpm Respiratory Rate - Anes 9 br/min br/min Systolic Blood Pressure Non-Invasive 94 mmHg mmHg Diastolic Blood Pressure Non-Invasive 57 mmHg mmHg 06/25/2023 8:20 EDT Heart Rate Monitored 55 bpm bpm Respiratory Rate - Anes 9 br/min br/min Systolic Blood Pressure Non-Invasive 88 mmHg mmHg Diastolic Blood Pressure Non-Invasive 56 mmHg mmHg 06/25/2023 8:15 EDT Temperature (Route Not Specified) 36 DegC DegC Heart Rate Monitored 59 bpm bpm Respiratory Rate - Anes 10 br/min br/min Systolic Blood Pressure Non-Invasive 81 mmHg mmHg Diastolic Blood Pressure Non-Invasive 57 mmHg mmHg 06/25/2023 8:10 EDT Heart Rate Monitored 58 bpm bpm Respiratory Rate - Anes 10 br/min br/min Systolic Blood Pressure Non-Invasive 92 mmHg mmHg Diastolic Blood Pressure Non-Invasive 57 mmHg mmHg 06/25/2023 8:08 EDT Systolic Blood Pressure Non-Invasive 100 mmHg mmHg Diastolic Blood Pressure Non-Invasive 59 mmHg mmHg 06/25/2023 8:05 EDT Heart Rate Monitored 59 bpm bpm Respiratory Rate - Anes 9 br/min br/min Systolic Blood Pressure Non-Invasive 85 mmHg mmHg Diastolic Blood Pressure Non-Invasive 62 mmHg mmHg 06/25/2023 8:00 EDT Temperature (Route Not Specified) 36 DegC DegC Heart Rate Monitored 60 bpm bpm Respiratory Rate - Anes 9 br/min br/min Systolic Blood Pressure Non-Invasive 90 mmHg mmHg Diastolic Blood Pressure Non-Invasive 56 mmHg mmHg 06/25/2023 7:55 EDT Heart Rate Monitored 60 bpm bpm Respiratory Rate - Anes 10 br/min br/min Systolic Blood Pressure Non-Invasive 95 mmHg mmHg Diastolic Blood Pressure Non-Invasive 57 mmHg mmHg 06/25/2023 7:50 EDT Heart Rate Monitored 59 bpm bpm Respiratory Rate - Anes 8 br/min br/min Systolic Blood Pressure Non-Invasive 97 mmHg mmHg Diastolic Blood Pressure Non-Invasive 46 mmHg mmHg 06/25/2023 7:45 EDT Temperature (Route Not Specified) 36 DegC DegC Heart Rate Monitored 60 bpm bpm Respiratory Rate - Anes 12 br/min br/min Systolic Blood Pressure Non-Invasive 105 mmHg mmHg Diastolic Blood Pressure Non-Invasive 60 mmHg mmHg 06/25/2023 7:40 EDT Heart Rate Monitored 61 bpm bpm Respiratory Rate - Anes 11 br/min br/min Systolic Blood Pressure Non-Invasive 99 mmHg mmHg Diastolic Blood Pressure Non-Invasive 55 mmHg mmHg 06/25/2023 7:35 EDT Heart Rate Monitored 67 bpm bpm Respiratory Rate - Anes 11 br/min br/min Systolic Blood Pressure Non-Invasive 99 mmHg mmHg Diastolic Blood Pressure Non-Invasive 61 mmHg mmHg 06/25/2023 7:30 EDT Temperature (Route Not Specified) 36 DegC DegC Heart Rate Monitored 58 bpm bpm Respiratory Rate - Anes 11 br/min br/min Systolic Blood Pressure Non-Invasive 107 mmHg mmHg Diastolic Blood Pressure Non-Invasive 70 mmHg mmHg 06/25/2023 7:25 EDT Heart Rate Monitored 58 bpm bpm Respiratory Rate - Anes 11 br/min br/min Systolic Blood Pressure Non-Invasive 108 mmHg mmHg Diastolic Blood Pressure Non-Invasive 77 mmHg mmHg 06/25/2023 7:20 EDT Heart Rate Monitored 57 bpm bpm Respiratory Rate - Anes 3 br/min br/min Systolic Blood Pressure Non-Invasive 116 mmHg mmHg Diastolic Blood Pressure Non-Invasive 67 mmHg mmHg 06/25/2023 7:15 EDT Respiratory Rate - Anes 0 br/min br/min Systolic Blood Pressure Non-Invasive 153 mmHg mmHg Diastolic Blood Pressure Non-Invasive 74 mmHg mmHg 06/25/2023 7:10 EDT Respiratory Rate - Anes 0 br/min br/min 06/25/2023 7:05 EDT Respiratory Rate - Anes 0 br/min br/min 06/25/2023 5:58 EDT Temperature Temporal Artery 36.4 DegC Peripheral Pulse Rate 57 bpm LOW Respiratory Rate 14 br/min Systolic Blood Pressure Non-Invasive 143 mmHg HI Diastolic Blood Pressure Non-Invasive 80 mmHg , Measurements from flowsheet . Mental status: alert & oriented x 4. Respiratory function: respirations are non-labored. Respiratory support: none. CV function: Normal rate. Cardiovascular support: none. Pain. Nausea status: see nursing documentation of medications. Postoperative hydration status: within normal limits. Digitally Signed by MAGDA ZAMORA on 06/25/2023 08:39 AM [facility]05-14-2024 Anesthesiology Consult note Patient: GAVIOTA DAVIES Age: 68 years Sex: Female : 1955 Associated Diagnoses: None Author: MAGDA ZAMORA Preoperative Information Time of last food or liquid consumption: 06/25/2023 00:00:00 Anesthesia history Patient's history: negative. Family's history: negative. Health Status Allergies: Allergic Reactions (Selected) Severity Not Documented Detrol- Buzzing in head., Allergies (1) ActiveReaction DetrolBUZZING IN HEAD Current medications: (Selected) Inpatient Medications Ordered Betadine 10% topical solution: 17.5 mL, mL/hr, Topical (INT), PREOP pharm Decadron: 10 mg, 1 mL, IV Push, PREOP pharm LR 1,000 mL: 20 mL/hr, Intravenous, Stop: 06/25/23 23:59:00 EDT Naropin 25 mg + Toradol 15 mg + morphine 2.5 mg + EPINEPHrine 0.3 m mg, 5 mL, mL/hr, Other, PREOP pharm Naropin 25 mg + Toradol 15 mg + morphine 2.5 mg + EPINEPHrine 0.3 m mg, 5 mL, mL/hr, Other, PREOP pharm tranexamic acid 1 g / 100 mL 0.7% NaCl PMX: 1 gram(s), 100 mL, 300 mL/hr, IV Piggyback, PREOP pharm tranexamic acid 1 g / 100 mL 0.7% NaCl PMX: 1 gram(s), 100 mL, 300 mL/hr, IV Piggyback, PREOP pharm Prescriptions Prescribed Amerge 1 mg oral tablet: 1 mg, 1 tab(s), Oral, qDay, PRN: as needed for migraine headache, 9 tab(s), 5 Refill(s) esomeprazole 40 mg oral delayed release capsule: 40 mg, 1 cap(s), Oral, qDayAC, for 100 day(s), on an empty stomach, 100 cap(s), 0 Refill(s) irbesartan 150 mg oral tablet: 150 mg, 1 tab(s), Oral, BID, 180 tab(s), 3 Refill(s) Documented Medications Documented Advil 200 mg oral tablet: 400 mg, 2 tab(s), Oral, q4h, PRN: as needed for pain, 120 tab(s), 0 Refill(s) Gemtesa 75 mg oral tablet: 75 mg, 1 tab(s), Oral, qDay, 30 tab(s), 0 Refill(s) Multivitamin: 1 tab(s), Oral, Daily, 0 Refill(s) Probiotic: 1 TABLET, Oral, qDay, 0 Refill(s) Vitamin D3 25 mcg (1000 intl units) oral capsule: 25 mcg, 1 cap(s), Oral, Daily, 30 cap(s), 0 Refill(s) calcium-vitamin D 600 mg-200 intl units oral capsule: cap(s), Oral, BID, 0 Refill(s), Medications (7) Active Scheduled: (6) dexamethasone 10 mg/mL (1mL) SDV 10 mg 1 mL, IV Push, PREOP pharm povidone iodine topical 17.5 mL, Topical (INT), PREOP pharm ropivacaine 25 mg + ketorolac 15 mg + morphine 2.5 mg + epinephrine 0.3 mg 25 mg 5 mL, Other, PREOPpharm ropivacaine 25 mg + ketorolac 15 mg + morphine 2.5 mg + epinephrine 0.3 mg 25 mg 5 mL, Other, PREOPpharm tranexamic acid PMX 1 gram(s) 100 mL, IV Piggyback, PREOP pharm tranexamic acid PMX 1 gram(s) 100 mL, IV Piggyback, PREOP pharm Continuous: (1) Lactated Ringers 1,000 mL 1,000 mL, Intravenous, 20 mL/hr PRN: (0) Problem list: Medical Basal cell carcinoma / SNOMED CT 176246269 / Confirmed Dermatofibroma / SNOMED CT 618700600 / Confirmed BPPV (benign paroxysmal positional vertigo) / SNOMED CT 287925582 / Confirmed Hot flashes / SNOMED CT 759116921 / Confirmed Gastroesophageal reflux disease / SNOMED CT 870428769 / Confirmed H/O ovarian cancer / SNOMED CT [id number] / Confirmed Elevated HDL / SNOMED CT 4324833759 / Confirmed History of kidney stones / SNOMED CT 8412349813 / Confirmed History of ovarian cancer / SNOMED CT 7658989548 / Confirmed Hypertension goal BP (blood pressure) < 150/90 / SNOMED CT 7593909765 / Confirmed Migraine with aura, not intractable / SNOMED CT 9537270 / Confirmed Moderate mitral valve regurgitation / SNOMED CT 2992655748 / Confirmed Multiple thyroid nodules / SNOMED CT 346545903 / Confirmed Suspicious nevus / SNOMED CT 8218653668 / Confirmed Otitis externa of right ear / SNOMED CT 1986983 / Confirmed Peripheral edema / SNOMED CT 463093076 / Confirmed Seborrheic keratoses / SNOMED CT 9227207885 / Confirmed Fatty liver / SNOMED CT 321141762 / Confirmed Urinary incontinence / SNOMED CT 5246750771 / Confirmed, Active Problems (21) Basal cell carcinoma BPPV (benign paroxysmal positional vertigo) Dermatofibroma Elevated HDL Fatty liver Gastroesophageal reflux disease H/O ovarian cancer History of kidney stones History of ovarian cancer Hot flashes Hypertension goal BP (blood pressure) < 150/90 Migraine with aura, not intractable Moderate mitral valve regurgitation Multiple thyroid nodules Otitis externa of right ear Peripheral edema Reflux gastritis Seborrheic keratoses Suspicious nevus TMJ (temporomandibular joint syndrome) Urinary incontinence Histories Past Medical History: No active or resolved past medical history items have been selected or recorded. Family History: Cancer Father (Stefano Godinez, ) Comments: 10/16/2018 14:03 Marta Llamas LPN kidney, prostate Mother (Janet Godinez) Comments: 10/16/2018 14:03 Marta Llamas LPN lung Sister (Tami Godinez) Comments: 01/02/2019 11:15 MILVIA GILES MD Kidney cancer, had one kidney removed Asthma Mother (Janet Godinez) Heart disease Mother (Janet Godinez) Osteoporosis Mother (Janet Godinez) Allergic rhinitis Mother (Janet Godinez) CHF - Congestive heart failure Mother (Janet Godinez) Depression Sister (Tami Godinez) Comments: 01/02/2019 11:15 MILVIA GILES MD Bipolar depression Alzheimer's disease Mother (Janet Godinez) Cancer Mother (Janet Godinez) Father (Stefano Godinez, ) Degenerative joint disease Mother (Janet Godinez) HTN - Hypertension Father (Stefano Godinez, ) Lymphoma Mother (Janet Godinez) Renal cancer Father (Stefano Godinez, ) Prostate cancer Father (Stefano Godinez, ) Lung cancer Mother (Janet Godinez) Procedure history: Achilles tendon repair ([id number]) on 01/19/2022 at 66 Years. Arthroscopy, knee, surgical; meniscal transplantation (includes arthrotomy for meniscal insertion),medial or lateral (44555) in 2014 at 58 Years. Hysterectomy (228511800) in 1996 at 41 Years. Comments: 11/28/2016 8:34 JACOB CHEEMA due to cancer Tonsillectomy (129904874). Appendectomy (356830849). Esophagogastroduodenoscopy (692368579). Colonoscopy (457089087). [place] tooth (49710835). 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 2 sons, 3 grandsons, and 1 granddaughter Lives In Single level home Current Home Treatments None Special Services and Community Resources None Spouse Name JOSE DAVIES Marital Status of Patient if Patient Independent Adult: Nutrition/Health 06/25/2023 Type of diet: Regular Caffeine intake amount: 2 cups of coffee daily Appetite Good Eating Difficulties None Physical Examination Vital Signs 06/25/2023 7:20 EDT Heart Rate Monitored 57 bpm bpm Respiratory Rate - Anes 3 br/min br/min Systolic Blood Pressure Non-Invasive 116 mmHg mmHg Diastolic Blood Pressure Non-Invasive 67 mmHg mmHg 06/25/2023 7:15 EDT Respiratory Rate - Anes 0 br/min br/min Systolic Blood Pressure Non-Invasive 153 mmHg mmHg Diastolic Blood Pressure Non-Invasive 74 mmHg mmHg 06/25/2023 7:10 EDT Respiratory Rate - Anes 0 br/min br/min 06/25/2023 7:05 EDT Respiratory Rate - Anes 0 br/min br/min 06/25/2023 5:58 EDT Temperature Temporal Artery 36.4 DegC Peripheral Pulse Rate 57 bpm LOW Respiratory Rate 14 br/min Systolic Blood Pressure Non-Invasive 143 mmHg HI Diastolic Blood Pressure Non-Invasive 80 mmHg Vital Signs(last 24 hrs) Last Charted Heart Rate [id number] bpm (JUNE 24 07:20) [id number] mmHg (JUNE 24 07:20) DBP67 mmHg (JUNE 24 07:20) Measurements from flowsheet : Measurements 06/25/2023 5:58 EDT Height 163 cm Admission Weight 92.2 kg [place] Body Weight 55.10 kg Admission Body Mass Index 34.7 m2 Pain assessment: Pain Assessment 06/25/2023 6:36 EDT Primary Pain Intensity 0 06/25/2023 5:58 EDT Primary Pain Intensity 0 Pain Scale Type 0-10 Pain scale . General: Alert and oriented. Airway: Normal temporomandibular joint mobility, Normal mouth, Normal neck range of motion. Mallampati classification: III (soft palate, base of uvula visible). Dentition Evaluation: Denies loose/chipped teeth. Respiratory: Respirations are non-labored. Cardiovascular: Normal rate. Neurologic: Alert, Oriented. Review / Management Results review: No qualifying data available , Lab results 06/25/2023 7:32 EDT SN - Proc - Anesthesia Type Spinal SN - Proc - Actual Procedure ROBOTIC ASSISTED RIGHT TOTAL KNEE ARTHROPLASTY 06/25/2023 7:20 EDT Heart Rate Monitored 57 bpm bpm Respiratory Rate - Anes 3 br/min br/min Systolic Blood Pressure Non-Invasive 116 mmHg mmHg Diastolic Blood Pressure Non-Invasive 67 mmHg mmHg Oxygen Saturation 98 % % 06/25/2023 7:15 EDT Respiratory Rate - Anes 0 br/min br/min Systolic Blood Pressure Non-Invasive 153 mmHg mmHg Diastolic Blood Pressure Non-Invasive 74 mmHg mmHg cefazolin 2 gram(s) gram(s) Sodium Chloride 0.9% 100 mL mL 06/25/2023 7:12 EDT SN - Assess - Post-op Skin Integrity Other See Comments (Modified) SN - Assess - Abnormality Location VARIOUS- CHEST AND BACK SN - Assess - Abnormality Type RED SKIN. DR King AWARE 06/25/2023 7:10 EDT Respiratory Rate - Anes 0 br/min br/min 06/25/2023 7:05 EDT Respiratory Rate - Anes 0 br/min br/min 06/25/2023 6:54 EDT SN - Assess - LOC Alert, Awake SN - Assess - Orientation Oriented X 3 06/25/2023 6:53 EDT SN - CAt - Case Attendee SN - CAt - Case Attendee SN - CAt - Case Attendee SN - CAt - Case Attendee SN - CAt - Case Attendee SN - CAt - Case Attendee SN - CAt - Case Attendee SN - CAt - Case Attendee SN - CAt - Case Attendee SN - CAt - Case Attendee SN - CAt - Case Attendee SN - CAt - Case Attendee SN - CAt - Case Attendee SN - CAt - Case Attendee SN - CAt - Case Attendee SN - CAt - Case Attendee SN - CAt - Role Performed Primary Surgeon SN - CAt - Role Performed PAINTER SIGN MAINTENANCE SN - CAt - Role Performed In Store Marketing Representative 1 SN - CAt - Role Performed Scrub 1 SN - CAt - Role Performed Book Sorter 1 SN - CAt - Role Performed Observer SN - CAt - Role Performed Sales Agent Financial Report Service SN - CAt - Role Performed Physician Makeup Sales Advisor 06/25/2023 6:50 EDT Time Out Procedure Verified Time Out Procedure Site Verified Yes Time Out Procedure Site Marked Yes Time Out Correct Patient Position Yes Consent Form Signed Yes Bedside Procedure Nerve Block Provider #1 Bedside Time Out MAGDA ZAMORA APRN-PAINTER SIGN MAINTENANCE Provider #2 Bedside Time Out Young, Mariaelena M boat fueler Band on and Verified Yes Blood Band on and Verified No Patient ID Band on and Verified Yes Anesthesia Consent Signed Yes Blood Consent Signed Yes 06/25/2023 6:38 EDT SN - Preop - CTm Pt Ready for OR/Proced 06/25/2023 6:38 06/25/2023 6:36 EDT Primary Pain Intensity 0 celecoxib 400 mg mg oxyCODONE 10 mg mg Lactated Ringers Injection 1,000 mL mL 06/25/2023 6:35 EDT famotidine 20 mg mg 06/25/2023 6:27 EDT citric acid-sodium citrate Not Done: PER ANESTHESIA (Not Done) 06/25/2023 6:14 EDT Wrist Left 06/25/2023 20 gauge Peripheral IV Activity: Field start Peripheral IV Dressing Condition: Clean, Dry, Intact Peripheral IV Dressing Activity: Applied Peripheral IV Line Status/Patency: Flushes easily, Continuous infusion Peripheral IV Site Condition: No complications Peripheral IV Equipment: Extension set Peripheral IV Number of Attempts: 1 06/25/2023 5:58 EDT Height 163 cm Admission Weight 92.2 kg [place] Body Weight 55.10 kg Admission Body Mass Index 34.7 m2 Temperature Temporal Artery 36.4 DegC Peripheral Pulse Rate 57 bpm LOW Respiratory Rate 14 br/min Systolic Blood Pressure Non-Invasive 143 mmHg HI Diastolic Blood Pressure Non-Invasive 80 mmHg Primary Pain Intensity 0 Pain Scale Type 0-10 Pain scale Heart Rhythm Regular Dorsalis Pedis Pulse, Left 2+ Normal Dorsalis Pedis Pulse, Right 2+ Normal Pedal edema Bilateral Edema Ratin+ mild/4mm Respirations Unlabored Respiratory Pattern Regular Breath Sounds Auscultated Anterior and posterior All Lobes Breath Sounds Clear Oxygen Therapy Room air Abdomen Description Non-distended, Soft Abdomen Palpation Non-Tender, Soft Bowel Sounds All Quadrants Present Skin Temperature Warm Skin Description [place], Normal for ethnicity Skin Integrity Not intact Mucous Membrane Color [place] Neurological Symptoms Patient denies Extremity Movement Equal Characteristics of Speech Clear Level of Consciousness Alert Strength All Extremities Strong Tone All Extremities Normal Sensation All Extremities Intact Affect/Behavior Appropriate, Calm, Cooperative Orientation Oriented x 4 Kelli Motor (2) Moves 4 extremities voluntarily or on command Kelli Respirations (2) Spontaneous respiration without support, RR > 10 Kelli Blood Pressure (2) BP 20% above or below preanesthetic level Kelli Pulse (2) Pulse 20% above or below preanesthetic level Kelli Oxygen Saturation (2) 94% or more Kelli Level of Consciousness (2) Fully awake Kelli III Score 12 Positioning Repositions self Activity Status ADL Awake, Resting Sequential Compression Device left knee high applied/on Antiembolism Stocking On/Re-applied left thigh high Standard Safety ID band on, Allergy Band on, Call device within reach, Bed in low position, Wheels locked, Upper/Half-Length side-rails up 06/25/2023 5:54 EDT Designated Person #1 We May Share AMPARO GARCIA ) Designated Person #1 Relationship Spouse Privacy Restrictions Requested None Status No, per patient Sensory Deficits None Sleep Apnea Snore Yes Sleep Apnea Tired No Sleep Apnea Obstruction No Sleep Apnea Pressure Yes Sleep Apnea BMI No Sleep Apnea Age Yes Sleep Apnea Neck No Sleep Apnea Gender No Sleep Apnea Score 3 Diagnosed With Sleep Apnea No Advanced Directives No - refuses information Infectious Disease Symptoms Patient states no symptoms Infectious Disease Recent Exposure No Alcohol and Drug Use No Employee of Institutional Living No Health Care Employee No History of Exposure to TB No History of Positive Chest X-Ray for TB No History of Positive TB Skin Test No Homeless No Known Immunosuppression No Recent Immigrant No Resident of Institutional Living No Bloody Sputum No Fatigue No Fever No Loss of Appetite No Night Sweats No Persistent Cough > 3 Weeks No Weight Loss No Pre-Op Patient Education NPO after midnight, No smoking after midnight, No makeup, No jewelry, Aware of surgery location, Pre-op education done, 1 bottle CHG wash with instructions given, Instructed to take ordered medications, Anesthesia block education provided SN - Preprocedure Comments Spoke with patient, Verbalizes/Nonverbally indicates understanding, Other: IRBESARTAN, ESOMEPRAZOLE Anesthesia Evaluation Date/Time 06/03/2023 12:25 Anesthesia Evaluation Performed By NITIN THOMAS DESIGNER ARCHITECT-PAINTER SIGN MAINTENANCE Anesthesia Evaluation Result Approved Barriers to Learning None evident Teaching Method Explanation, Printed materials Preferred Spoken Language American Preferred Written Language American Teaching Evaluation No further teaching needed Total Joint Book Given Yes Safety Brochure Information Reviewed Unable to complete Iris Jensen Video Viewed Patient refused Information Given by Patient Patient's Current Physicians Patient's Current Physicians Discharge To, Anticipated Home with family care Prev Test Positive/Diagnosis w/COVID-19 No Current Quarantine/Isolated any Illness No Any Contact with Sick Animals/Birds No Traveled Anywhere in Last 30 Days No Lost Weight Unintentionally Recently No Eat Poorly Due to Decreased Appetite No Total MST Score 0 No Personal Devices, Patient Valuables Contact lenses, Glasses Anesthesia/Transfusions Prior anesthesia Admission Note-Nursing Same Day Patient History 06/25/2023 5:52 EDT Urinary Elimination Voiding, no difficulties Allergies Yes Consent Form Signed Yes Patient Dressed In Hospital gown CHG Preoperative Wash/Wipe Night before procedure, Day of procedure, Site specific wipe Preop Nasal Swab Povidone-Iodine CHG Skin Prep Completed for Eligible Surgery History & Physical On Chart Yes Obstructive Sleep Apnea Assess Completed Yes Belongings At Bedside Glasses, Pants, Shoes, Socks, Sweatshirt, Undergarments NPO Status Maintained Allergy Band on and Verified Yes Patient ID Band on and Verified Yes Implants Verified Yes Pacemaker/AICD Verified Yes Site Verified by Patient/Family Yes Anesthesia Consent Signed Yes Blood Consent Signed Yes Last Fluid Intake 06/24/2023 21:00 Last Food Intake 06/24/2023 19:00 Last Void 06/25/2023 5:54 06/25/2023 5:48 EDT SN - Preop - CTm Pt in SDS Room 06/25/2023 5:48 . Assessment and Plan [place] [employer] (ASA) physical status classification: Class III. Anesthetic Preoperative Plan Anesthetic technique: Spinal. Postoperative pain management: adductor. Informed consent: signed by patient. Digitally Signed by MAGDA ZAMORA on 06/25/2023 07:35 AM [facility]04-22-2024 Note ORIGINAL EXAMINATION: CT OF THE RIGHT KNEE WITHOUT CONTRAST 06/03/2023 12:43 pm TECHNIQUE: CT of the right knee was performed without the administration of intravenous contrast. Multiplanar reformatted images are provided for review. Automated exposure control, iterative reconstruction, and/or weight based adjustment of the mA/kV was utilized to reduce the radiation dose to as low as reasonably achievable. COMPARISON: None. HISTORY ORDERING SYSTEM PROVIDED HISTORY: Reason for Exam: Unilateral primary osteoarthritis, right knee FINDINGS: Survey images right hip: Mild degenerative spurring. No aggressive bony lesion. Right knee: Tricompartmental joint space loss and spurring is most severe in the medial tibiofemoral compartment. Tiny calcified intra-articular body seen. A small joint effusion. Patellar enthesophytes. Lateral subluxation/tilt of the patella noted. Survey images right ankle: No aggressive bony lesion. Tibiotalar spurs. Corticated ossicle noted in the anterior tibiotalar joint space. Chronic posttraumatic ossicle seen along the deltoid ligament. IMPRESSION: 1. Tricompartmental osteoarthritis of the right knee, most severe in the medial tibiofemoral compartment. 2. Small joint effusion in the knee. 3. Lateral subluxation/tilt of the patella. Interpreted by: Sergio Penaloza MD Preliminary Report By: Sergio Penaloza MD Electronically signed By Sergio Penaloza MD Dictated Date: 06/03/2023 4:31:02 PM Prelim Date: 06/03/2023 4:39:38 PM Sign Date: 06/03/2023 4:39:38 PM Ordering Provider: [facility]11-27-2023 Note ORIGINAL FROM: [place] [id number] PROCEDURE FOR: GAVIOTA DAVIES [address] [place] [address] Home: PID#: [id number] Exam#: [id number] : 1955 Age: 67 TO: [facility] [place] [address] Fax: NO FAX EXAMINATION: SCREENING DIGITAL BILATERAL MAMMOGRAM WITH TOMOSYNTHESIS, 01/07/2023 7:51 am TECHNIQUE: Screening mammography of the bilateral breasts was performed with tomosynthesis. 2D standard and 3D tomosynthesis combination imaging performed through both breasts in the MLO and CC projection. Computer aided detection was utilized in the interpretation of this exam. COMPARISON: 12/28/2021, 12/12/2020 HISTORY: Breast cancer screening. FINDINGS: BREAST DENSITY: Heterogeneously dense There are benign appearing calcifications in both breasts. There are no significant masses or calcifications. IMPRESSION: No mammographic evidence of malignancy. Continued screening with annual mammograms is recommended. Stephany Mcneill risk calculations, generated with the history provided, report this patient's 10 year risk and lifetime risk for developing breast cancer at 4.8% and 9.4%, respectively. Based on this assessment tool, if the patient's calculated lifetime risk is below 20%, then the patient is considered at average risk for developing breast cancer. If the patient's calculated lifetime risk is at or above 20%, then the patient is considered high risk for developing breast cancer and may be a candidate for supplemental breast MRI screening in addition to annual mammographic screening per the [place] [employer]. BIRADS: MAMMOGRAM BI-RADS: 2: Benign finding RECALL: 1 year screening RECALL TYPE: mammo LETTER SENT: Normal BI-RADS 1 and 2 Interpreted by: Delta Cook MD Preliminary Report By: Delta Cook MD Electronically signed By Delta Cook MD Dictated Date: 01/07/2023 12:30:51 PM Prelim Date: 01/07/2023 12:44:42 PM Sign Date: 01/07/2023 12:44:42 PM Ordering Provider: [facility] [place] Layer: MESHA RESENDIZ RT(R)(M)(CT) BEADER TENDER letter sent: Normal BI-RADS 1 and 2 Mammogram [facility]ADS[facility] Pathology Report verified by [facility] ANIKA MORRISON Sign out Date: 09/25/2022 13:08 Performing Lab: [address] Pathology Dept [facility] 08-15-2023 Note Pathology Report verified by [facility] ANIKA MORRISON Sign out Date: 09/25/2022 13:08 Performing Lab: [address] Pathology Dept [facility] 08-15-2023 Note Pathology Report verified by [facility] ANIKA MORRISON Sign out Date: 09/25/2022 13:08 Performing Lab: [address] [place] Path[facility] 08-14-2023 Note Pathology Report verified by [facility] ANIKA MORRISON Sign out Date: 09/25/2022 13:08 Performing Lab: [address] Pathology Dept [facility] 08-14-2023 Note Pathology Report verified by [facility] ANIKA MORRISON Sign out Date: 09/25/2022 13:08 Performing Lab: [address] Pathology Dept [facility] 08-14-2023 Note Pathology Report verified by [facility] ANIKA MORRISON Sign out Date: 09/25/2022 13:08 Performing Lab: [address] Pathology Dept [facility] 08-14-2023 Note Pathology Report verified by [facility] ANIKA MORRISON Sign out Date: 09/25/2022 13:08 Performing Lab: [address] Pathology Dept [facility] 12-09-2022 Evaluation + Plan noteExtracted from: Title:Clinical Document Author:JILL STAFFORD PM Date:01/19/22 KANDIYOHI ADMISSION HISTORY AN D PHYSICIAL CHIEF COMPLAINT: HISTORY OF PRESENT ILLNESS: REVIEW OF SYSTEMS: ACTIVE PROBLEMS: (9) Gastroesophageal reflux disease ([id number]) H/O ovarian cancer ([id number]) History of kidney stones (8508039791) Hypertension goal BP (blood pressure) < 150/90 (4858442928) Migraine with aura, not intractable (5651008) Moderate mitral valve regurgitation (1213660723) Peripheral edema (120252464) Reflux gastritis (043108056) TMJ (temporomandibular joint syndrome) (69425195) MEDICATIONS: Active Inpt Meds: None Active PRN Meds: None One Time Meds: None Active IV Meds: Lactated Ringers Infusion 1,000 mL (LR 1,000 mL) Start: 01/19/22 9:19:00 EST, Rate: 125 mL/hr, 01/19/22 9:19:00 EST ALLERGIES: (1) Detrol FAMILY HISTORY: SOCIAL HISTORY: PHYSICAL EXAM: VITALS: IbfrueWmhwQGFiafrPIUlU0LBZ5OoqtCr(kg) 01/19 09:2836.9--586815BQ95/09 93.2 24 Hr Tmax: 36.9 at 01/19 09:28 36 Hr Tmax: 36.9 at 01/19 09:28 Vital Signs are the last 5 in the past 48 hours. Weights display the last 5 within 7 days. Initial Wt: 01/19 93.2 kg 205 lb Current Wt: 01/19 93.2 kg 205 lb GENERAL: HEENT: CARDIOVASCULAR: RESPIRATORY: ABDOMEN: EXREMETIES: NEUROLOGICAL: PSYCHIATRIC: LABS: No 36hr Lab Data DIAGNOSTICS: IMPRESSION: PLAN: History and Physical Update I have examined the patient; reviewed the H&P and there are no changes to the H&P unless noted below. Future Appointments Appointment Date:06/26/2022 08:00:00 AM Scheduled Provider:BEAR HAINES DO Location:[facility] Appointment Type:PC Wellness Medicare Appointment Date:11/14/2022 09:00:00 AM Scheduled Provider:AROLDO MCKEON Location:[facility] Appointment Type:CV OV Future Scheduled Tests Radiology* XR Ankle Minimum 3 Views Right 01/23/21 * XR Tibia/Fibula 2 Views Right 01/23/21 [facility] 12-09-2022 Hospital Discharge instructions Patient Education 01/19/2022 11:23:18 Monitored Anesthesia Care, Care After Monitored Anesthesia Care, Care After These instructions provide you with information about caring for yourself after your procedure. Your health care provider may also give you more specific instructions. Your treatment has been plannedaccording to current medical practices, but problems sometimes occur. Call your health care provider if you have any problems or questions after your procedure. What can I expect after the procedure? After your procedure, you may: Feel sleepy for several hours. Feel clumsy and have poor balance for several hours. Feel forgetful about what happened after the procedure. Have poor judgment for several hours. Feel nauseous or vomit. Have a sore throat if you had a breathing tube during the procedure. Follow these instructions at home: For at least 24 hours after the procedure: Have a responsible adult stay with you. It is important to have someone help care for you until youare awake and alert. Rest as needed. Do not: ?Participate in activities in which you could fall or become injured. ?Drive. ?Use heavy machinery. ?Drink alcohol. ?Take sleeping pills or medicines that cause drowsiness. ?Make important decisions or sign legal documents. ?Take care of children on your own. Eating and drinking Follow the diet that is recommended by your health care provider. If you vomit, drink water, juice, or soup when you can drink without vomiting. Make sure you have little or no nausea before eating solid foods. General instructions Take aofc-jrh-dtncgnx and prescription medicines only as told by your health care provider. If you have sleep apnea, surgery and certain medicines can increase your risk for breathing problems. Follow instructions from your health care provider about wearing your sleep device: ?Anytime you are sleeping, including during daytime naps. ?While taking prescription pain medicines, sleeping medicines, or medicines that make you drowsy. If you smoke, do not smoke without supervision. Keep all follow-up visits as told by your health care provider. This is important. Contact a health care provider if: You keep feeling nauseous or you keep vomiting. You feel light-headed. You develop a rash. You have a fever. Get help right away if: You have trouble breathing. Summary For several hours after your procedure, you may feel sleepy and have poor judgment. Have a responsible adult stay with you for at least 24 hours or until you are awake and alert. This information is not intended to replace advice given to you by your health care provider. Make sure you discuss any questions you have with your health care provider. Document Released: 05/20/2016 Document Revised: 04/28/2018 Document Reviewed: 05/20/2016 [employer] Patient Education 2020 [employer]. 01/19/2022 11:23:13 6- FAQ about SSI (04/22 IC) (CUSTOM) FAQs about Surgical SiteInfections (frequently asked questions) What is a Surgical Site Infection (SSI)? A surgical site infection is an infection that occurs after surgery in the part of the body where the surgery took place. Most patients who have surgery do not develop an infection. However, infections develop in about 1 to 3 out of every 100 patients who have surgery. Some of the common symptoms of a surgical site infection are: Redness and pain around the area where you had surgery Drainage of cloudy fluid from your surgical wound Fever Can SSIs be treated? Yes. Most surgical site infections can be treated with antibiotics. The antibiotic given to you depends on the bacteria (germs) causing the infection. Sometimes patients with SSIs also need another surgery to treat the infection. What are some of the things that hospitals are doing to prevent SSIs? To prevent SSIs, doctors, nurses, and other healthcare providers: Clean their hands and arms up to their elbows with an antiseptic agent just before the surgery. Clean their hands with soap and water or an alcohol-based hand rub before and after caring for eachpatient. May remove some of your hair immediately before your surgery using electric clippers if the hair isin the same area where the pro cedure will occur. They should not shave you with a razor. Wear special hair covers, masks, gowns, and gloves during surgery to keep the surgery area clean. Give you antibiotics before your surgery starts. In most cases, you should get antibiotics within 60 minutes before the surgery starts and the antibiotics should be stopped within 24 hours after surgery. Clean the skin at the site of your surgery with a special soap that kills germs. What can I do to help prevent SSIs? Before your surgery: Tell your doctor about other medical problems you may have. Health problems such as allergies, diabetes, and obesity could af fect your surgery and your treatment. Quit smoking. Patients who smoke get more infections. Talk to your doctor about how you can quit before your surgery. Do not shave near where you will have surgery. Shaving with a razor can irritate your skin and makeit easier to develop an infection. At the time of your surgery: Speak up if someone tries to shave you with a razor before surgery. Ask why you need to be shaved and talk with your surgeon if you have any concerns. Ask if you will get antibiotics before surgery. After your surgery: * Make sure that your healthcare providers clean their hands before examining you, either with soapand water or an alcohol-based hand rub. Family and friends who visit you should not touch the surgical wound or dressings. Family and friends should clean their hands with soap and water or an alcohol- based hand rub beforeand after visiting you. If you do not see them clean their hands, ask them to clean their hands. If you do not see your providers clean their hands, please ask them to do so. What do I need to do when I go home from the hospital? Before you go home, your doctor or nurse should explain everything you need to know about taking care of your wound. Make sure you understand how to care for your wound before you leave the hospital. Always clean your hands before and after caring for your wound. Before you go home, make sure you know who to contact if you have questions or problems after you get home. If you have any symptoms of an infection, such as redness and pain at the surgery site, drainage, or fever, call your doctor immediately. If you have questions, please ask your doctor or nurse. Co-sponsered by: FOSTER, IDSA, AHA, APIC, CDC, The Joint Commission Follow Up Care 12/27/2021 13:51:41 With:JILL STAFFORD Address[place] [address] [facility] [place] [address] [facility] [place] [address]- Business (1) When: Unknown Comments:january 25 @ 220pm [facility] 12-09-2022 Summary of episode note Discharge Instructions Thank you for allowing [facility] to assist you with your healthcare needs. The following is importantdischarge information regarding your hospital visit. Your Care Team BEAR HAINES DO What to do next Scheduled Follow-Up Appointments Appointment Type When With Where Contact InformationPC Wellness Medicare 06/26/2022 08:00 AM EDT BEAR HAINES DO [facility] [address] [place] [address] CV OV 11/14/2022 09:00 AM EDT AROLDO MCKEON APRN-SAIGE [facility] CV Follow Up Appointments Follow Up with JILL STAFFORD When Why: january 25 @ 220pm Where: [address] [facility] [place] [address]- [facility] (1) The Following Activity and Diet Have Been Ordered for You Discharge Activity - Ordered -- Other, Follow the post-operative/post-procedure activity instructions provided by your physician's office., 01/19/22 11:11:00 EST No qualifying data available. The Following Equipment Has Been Ordered for You Discharge Home Equipment Discharge Wound Care - Ordered -- Follow the post-operative/post-procedure wound care instructions provided by your physician's office., 01/19/22 11:11:00 EST Allergies Detrol (BUZZING IN HEAD) Medications Please ask your primary doctor or pharmacist before taking any other medication not listed, including over the counter drugs, herbal medications, vitamins and or supplements as they may interact withyour home medications. What How Much When Instructions Last Dose Unchanged calcium-vitamin D (calcium- vitamin D 600 mg-200intl units oral capsule) by mouth Two (2) times a day Unchanged esomeprazole (esomeprazole 40 mg oral delayed release capsule) 1 cap by mouth Once a day before a meal Unchanged herbal/ nutritional product (Probiotic) 1 TABLET by mouth Once a day Unchanged hydroCHLOROthiazide (hydroCHLOROthiazide 25 mg oral tablet) 1 tab(s) by mouth Once a day Unchanged ibuprofen (Advil 200 mg oral tablet) 2 tab(s) by mouth Every 4 hours as needed for as needed for pain Unchanged naratriptan (Amerge 1 mg oral tablet) 1 tab(s) by mouth Once a day as needed for as needed for migraine headache Unchanged ubiquinone (Co-Q10) 100 Milligram by mouth Once a day Unchanged valsartan (valsartan 160 mg oral tablet) 1 tab(s) by mouth Two (2) times a day Please take this list to your next doctor s visit. Bring all medications you take, including over the counter medications, herbals and other supplements with you to your doctor s visit. Patients and families are reminded to discard old lists and to update any records with all medication providers or retail pharmacies. Education Materials Monitored Anesthesia Care, Care After These instructions provide you with information about caring for yourself after your procedure. Your health care provider may also give you more specific instructions. Your treatment has been plannedaccording to current medical practices, but problems sometimes occur. Call your health care provider if you have any problems or questions after your procedure. What can I expect after the procedure? After your procedure, you may: Feel sleepy for several hours. Feel clumsy and have poor balance for several hours. Feel forgetful about what happened after the procedure. Have poor judgment for several hours. Feel nauseous or vomit. Have a sore throat if you had a breathing tube during the procedure. Follow these instructions at home: For at least 24 hours after the procedure: Have a responsible adult stay with you. It is important to have someone help care for you until youare awake and alert. Rest as needed. Do not: ? Participate in activities in which you could fall or become injured. ? Drive. ? Use heavy machinery. ? Drink alcohol. ? Take sleeping pills or medicines that cause drowsiness. ? Make important decisions or sign legal documents. ? Take care of children on your own. Eating and drinking Follow the diet that is recommended by your health care provider. If you vomit, drink water, juice, or soup when you can drink without vomiting. Make sure you have little or no nausea before eating solid foods. General instructions Take muzt-mhj-pcuecpc and prescription medicines only as told by your health care provider. If you have sleep apnea, surgery and certain medicines can increase your risk for breathing problems. Follow instructions from your health care provider about wearing your sleep device: ? Anytime you are sleeping, including during daytime naps. ? While taking prescription pain medicines, sleeping medicines, or medicines that make you drowsy. If you smoke, do not smoke without supervision. Keep all follow-up visits as told by your health care provider. This is important. Contact a health care provider if: You keep feeling nauseous or you keep vomiting. You feel light-headed. You develop a rash. You have a fever. Get help right away if: You have trouble breathing. Summary For several hours after your procedure, you may feel sleepy and have poor judgment. Have a responsible adult stay with you for at least 24 hours or until you are awake and alert. This information is not intended to replace advice given to you by your health care provider. Make sure you discuss any questions you have with your health care provider. Document Released: 05/20/2016 Document Revised: 04/28/2018 Document Reviewed: 05/20/2016 EBIQUOUS Patient Education 2020 [employer]. FAQs about Surgical SiteInfections (frequently asked questions) What is a Surgical Site Infection (SSI)? A surgical site infection is an infection that occurs after surgery in the part of the body where the surgery took place. Most patients who have surgery do not develop an infection. However, infections develop in about 1 to 3 out of every 100 patients who have surgery. Some of the common symptoms of a surgical site infection are: Redness and pain around the area where you had surgery Drainage of cloudy fluid from your surgical wound Fever Can SSIs be treated? Yes. Most surgical site infections can be treated with antibiotics. The antibiotic given to you depends on the bacteria (germs) causing the infection. Sometimes patients with SSIs also need another surgery to treat the infection. What are some of the things that hospitals are doing to prevent SSIs? To prevent SSIs, doctors, nurses, and other healthcare providers: Clean their hands and arms up to their elbows with an antiseptic agent just before the surgery. Clean their hands with soap and water or an alcohol-based hand rub before and after caring for eachpatient. May remove some of your hair immediately before your surgery using electric clippers if the hair isin the same area where the pro cedure will occur. They should not shave you with a razor. Wear special hair covers, masks, gowns, and gloves during surgery to keep the surgery area clean. Give you antibiotics before your surgery starts. In most cases, you should get antibiotics within 60 minutes before the surgery starts and the antibiotics should be stopped within 24 hours after surgery. Clean the skin at the site of your surgery with a special soap that kills germs. What can I do to help prevent SSIs? Before your surgery: Tell your doctor about other medical problems you may have. Health problems such as allergies, diabetes, and obesity could af fect your surgery and your treatment. Quit smoking. Patients who smoke get more infections. Talk to your doctor about how you can quit before your surgery. Do not shave near where you will have surgery. Shaving with a razor can irritate your skin and makeit easier to develop an infection. At the time of your surgery: Speak up if someone tries to shave you with a razor before surgery. Ask why you need to be shaved and talk with your surgeon if you have any concerns. Ask if you will get antibiotics before surgery. After your surgery: * Make sure that your healthcare providers clean their hands before examining you, either with soapand water or an alcohol-based hand rub. Family and friends who visit you should not touch the surgical wound or dressings. Family and friends should clean their hands with soap and water or an alcohol- based hand rub beforeand after visiting you. If you do not see them clean their hands, ask them to clean their hands. If you do not see your providers clean their hands, please ask them to do so. What do I need to do when I go home from the hospital? Before you go home, your doctor or nurse should explain everything you need to know about taking care of your wound. Make sure you understand how to care for your wound before you leave the hospital. Always clean your hands before and after caring for your wound. Before you go home, make sure you know who to contact if you have questions or problems after you get home. If you have any symptoms of an infection, such as redness and pain at the surgery site, drainage, or fever, call your doctor immediately. If you have questions, please ask your doctor or nurse. Co-sponsered by: FOSTER, IDSA, AHA, APIC, CDC, The Joint Commission Additional Information VACCINATE! IT SAVES LIVES! Members of the community who have not yet received the COVID-19 vaccine and would like to receive it can visit one of [facility] vaccine clinics. There are many vaccine clinic locations within the [facility]. For locations and available times, please visit [email or web address].[place].gov/. It is important to note that some COVID mobile vaccine clinics are held outdoors and may be canceled in rainy or stormy conditions. To learn more about pediatric vaccinations (ages 5-11), we invite you to visit the [facility] webpage. [email or web address]/[email or web address]-[email or web address] stions.htmlTo learn more about the COVID-19 vaccine, we invite you to visit the [facility] website for a list of frequently asked questions. [email or web address]-Luxtmbzhed _[email or web address]-Questions.pdf [facility] Patient Portal Access Instructions: Stay connected with your healthcare team and access your personal medical information anytime with the [facility] Patient Portal.If you would like a full copy of your medical records, please contact the [facility] Medical Records Department, Saturday through Saturday between 8a.m. and 4:30p.m. Please follow the directions below to access the portal: 1.Access the email account you provided upon registration to the [facility].2.Look for an invitation email from [facility].3.Open the email and access the invitation link: Accept Invitation to [facility]4.Fill in the required vogt to create your account. Sign into www.[email or web address] with your username and password that you created in the above steps to stay up to date. You can then view a summary of results, a summary of your visits, and the ability to download your summaries to your computer or send the information securely to a physician. Remember that your healthcare information is confidential, so carefully consider who you will allow to register on the [facility] Patient Portal for access to your information. You can also access the [facility] Patient Portal on the [employer]via. Simply click on Health Records under [employer] and then click on the [employer] logo. HOW TO SAFELY DISPOSE OF PRESCRIPTION MEDICATIONS Please use one of the following methods to safely dispose of your unused medications. 1.Use a drug disposal kit: the drug disposal pouch allows you to safely discard your old and unuseddrugs. Ask your nurse to give you one when you are discharged.2.Visit a local take-back location: Many local pharmacies and police departments have programs that collect old and unwanted prescriptiondrugs. Call your local pharmacy or go to http://bit.Personaling/1P4Cu1c to find one close to you.3.Make use of household items: Use cat litter or old coffee grounds to dispose medications if other options arenot available. Mix your drugs with these household products, seal them in an airtight container andthrow it into the garbage. Call [facility]: [phone] to be sure your drugs can be disposed of in this way. Some medicines may require a different approach.4.Never flush your medications down the toilet. IF YOU HAVE BEEN PRESCRIBED AN OPIOID FOR PAIN If you have been prescribed an opioid (such as hydrocodone, oxycodone or morphine), it is critical to understand the possible side effects and risks of opioid pain medications. Even when taken as directed, opioids can have several side effects including: Tolerance, meaning you might need to take more of a medication for the same pain relief. Nausea, vomiting and/or constipation. Sleepiness, dizziness, dry mouth, confusion, depression or itching. Physical dependence, meaning you have withdrawal symptoms when a medication is stopped, can develop within a few days. KNOW YOUR RESPONSIBILITIES It is important to know exactly how much and how often to take the opioid pain medications you are prescribed. Never take opioids in higher amounts or more often than prescribed. Do not combine opioids with alcohol or other drugs that cause drowsiness, such as benzodiazepines, also known as benzos, including diazepam and alprazolam, muscle relaxants or sleep aids. Never sell or share prescription opioids. This is illegal. Store opioids in a secure place and out of reach of others (including children, family, friends and visitors). The last page of this document has been signed and retained as a CHART COPY. Signatures Patient Education Materials Monitored Anesthesia Care, Care After 6- FAQ about SSI (04/22 IC) (CUSTOM) Medication Leaflets My discharge plan and instructions have been reviewed and explained to me and ISAMSON ANGELA L understand my current condition and have read and understand these discharge instructions. I have received a written copy of the plan/instructions. If I have questions, I am aware that I should contact my doctor. 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 SIGN MAINTENANCE Assessment Postanesthesia assessment Vitals: Vital signs from flowsheet : Vital Signs 01/19/2022 11:05 EST Respiratory Rate - Anes 0 br/min br/min 01/19/2022 11:00 EST Heart Rate Monitored 61 bpm bpm Respiratory Rate - Anes 12 br/min br/min Systolic Blood Pressure Non-Invasive 120 mmHg mmHg Diastolic Blood Pressure Non-Invasive 55 mmHg mmHg 01/19/2022 10:55 EST Heart Rate Monitored 62 bpm bpm Respiratory Rate - Anes 11 br/min br/min Systolic Blood Pressure Non-Invasive 115 mmHg mmHg Diastolic Blood Pressure Non-Invasive 49 mmHg mmHg 01/19/2022 10:50 EST Heart Rate Monitored 62 bpm bpm Respiratory Rate - Anes 14 br/min br/min Systolic Blood Pressure Non-Invasive 125 mmHg mmHg Diastolic Blood Pressure Non-Invasive 54 mmHg mmHg 01/19/2022 10:45 EST Heart Rate Monitored 60 bpm bpm Respiratory Rate - Anes 14 br/min br/min Systolic Blood Pressure Non-Invasive 113 mmHg mmHg Diastolic Blood Pressure Non-Invasive 55 mmHg mmHg 01/19/2022 10:40 EST Heart Rate Monitored 64 bpm bpm Respiratory Rate - Anes 14 br/min br/min Systolic Blood Pressure Non-Invasive 114 mmHg mmHg Diastolic Blood Pressure Non-Invasive 59 mmHg mmHg 01/19/2022 10:35 EST Heart Rate Monitored 62 bpm bpm Respiratory Rate - Anes 5 br/min br/min Systolic Blood Pressure Non-Invasive 131 mmHg mmHg Diastolic Blood Pressure Non-Invasive 53 mmHg mmHg 01/19/2022 10:30 EST Heart Rate Monitored 61 bpm bpm Respiratory Rate - Anes 3 br/min br/min Systolic Blood Pressure Non-Invasive 121 mmHg mmHg Diastolic Blood Pressure Non-Invasive 64 mmHg mmHg 01/19/2022 10:26 EST Systolic Blood Pressure Non-Invasive 128 mmHg mmHg Diastolic Blood Pressure Non-Invasive 73 mmHg mmHg 01/19/2022 10:25 EST Respiratory Rate - Anes 8 br/min br/min 01/19/2022 9:28 EST Temperature Temporal Artery 36.9 DegC Peripheral Pulse Rate 58 bpm LOW Respiratory Rate 18 br/min Systolic Blood Pressure Non-Invasive 155 mmHg HI Diastolic Blood Pressure Non-Invasive 66 mmHg Blood Pressure Method Automatic Blood Pressure Location Left arm , Measurements from flowsheet . Mental status: alert & oriented x 4. Respiratory function: respirations are non-labored. Respiratory support: none. CV function: Normal rate. Cardiovascular support: none. Pain. Nausea status: see nursing documentation of medications. Postoperative hydration status: within normal limits. Digitally Signed by MAGDA ZAMORA on 01/19/2022 11:13 AM [facility]12-09-2022 Anesthesiology Consult note Patient: GAVIOTA DAVIES Age: 66 years Sex: Female : 1955 Associated Diagnoses: None Author: MAGDA ZAMORA Preoperative Information Time of last food or liquid consumption: 01/19/2022 00:00:00 Anesthesia history Patient's history: negative. Family's history: negative. Health Status Allergies: Allergic Reactions (Selected) Severity Not Documented Detrol- Buzzing in head., Allergies (1) ActiveReaction DetrolBUZZING IN HEAD Current medications: (Selected) Inpatient Medications Ordered LR 1,000 mL: 125 mL/hr, Intravenous Prescriptions Prescribed Amerge 1 mg oral tablet: 1 mg, 1 tab(s), Oral, qDay, PRN: as needed for migraine headache, 9 tab(s), 5 Refill(s) esomeprazole 40 mg oral delayed release capsule: 40 mg, 1 cap(s), Oral, qDayAC, 90 cap(s), 1 Refill(s) hydroCHLOROthiazide 25 mg oral tablet: 1 tab(s), Oral, qDay, 90 tab(s), 3 Refill(s) valsartan 160 mg oral tablet: 1 tab(s), Oral, BID, 180 tab(s), 3 Refill(s) Documented Medications Documented Advil 200 mg oral tablet: 400 mg, 2 tab(s), Oral, q4h, PRN: as needed for pain, 120 tab(s), 0 Refill(s) Co-Q10: 100 mg, Oral, qDay, 0 Refill(s) Probiotic: 1 TABLET, Oral, qDay, 0 Refill(s) calcium-vitamin D 600 mg-200 intl units oral capsule: cap(s), Oral, BID, 0 Refill(s), Medications (1) Active Scheduled: (0) Continuous: (1) Lactated Ringers 1,000 mL 1,000 mL, Intravenous, 125 mL/hr PRN: (0) Problem list: Medical Gastroesophageal reflux disease / SNOMED CT 183035281 / Confirmed H/O ovarian cancer / SNOMED CT [id number] / Confirmed History of kidney stones / SNOMED CT 6128316596 / Confirmed Hypertension goal BP (blood pressure) < 150/90 / SNOMED CT 7123827842 / Confirmed Migraine with aura, not intractable / SNOMED CT 2195118 / Confirmed Moderate mitral valve regurgitation / SNOMED CT 5545049809 / Confirmed Peripheral edema / SNOMED CT 924151834 / Confirmed, Active Problems (9) Gastroesophageal reflux disease H/O ovarian cancer History of kidney stones Hypertension goal BP (blood pressure) < 150/90 Migraine with aura, not intractable Moderate mitral valve regurgitation Peripheral edema Reflux gastritis TMJ (temporomandibular joint syndrome) Histories Past Medical History: No active or resolved past medical history items have been selected or recorded. Family History: Cancer Father (Stefano Godinez, ) Comments: 10/16/2018 14:03 Marta Llamas LPN kidney, prostate Mother (Janet Godinez) Comments: 10/16/2018 14:03 Marta Llamas LPN lung Sister (Tmai Godinez) Comments: 01/02/2019 11:15 MILVIA GILES MD Kidney cancer, had one kidney removed Asthma Mother (Janet Godinez) Heart disease Mother (Janet Godinez) Osteoporosis Mother (Janet Godinez) Allergic rhinitis Sister (Lina Phelps) Mother (Janet Godinez) CHF - Congestive heart failure Mother (Janet Godinez) Depression Sister (Tami Godinez) Comments: 01/02/2019 11:15 DOM - MILVIA WILLIS MD Bipolar depression Hyperlipidemia Sister (Lina Phelps) Alzheimer's disease Mother (Janet Godinez) Cancer Mother (Janet Godinez) Father (Stefano Godinez, ) HIV Father (Stefano Godinez, ) Bipolar Sister (Lina Phelps) Degenerative joint disease Mother (Janet Godinez) HTN - Hypertension Father (Stefano Godinez, ) Procedure history: Arthroscopy, knee, surgical; meniscal transplantation (includes arthrotomy for meniscal insertion),medial or lateral (10151) in 2014 at 58 Years. Hysterectomy (505127018) in 1996 at 41 Years. Comments: 11/28/2016 8:34 JACOB CHEEMA due to cancer Tonsillectomy (108816487). Appendectomy (869697849). Esophagogastroduodenoscopy (099059647). Colonoscopy (203745131). [place] tooth (78759597). Social History Social & Psychosocial Habits Alcohol 03/31/2019 Use: Rare Type: Beer Frequency: 1-2 times per year Employment/School 01/02/2019 Status: Retired Description: Had worked for a [employer]. 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 2 sons, 3 grandsons, and 1 granddaughter Lives In Single level home Current Home Treatments None Special Services and Community Resources None Spouse Name JOSE DAVIES Marital Status of Patient if Patient Independent Adult: Nutrition/Health 03/31/2019 Type of diet: Regular Appetite Good Eating Difficulties None Caffeine intake amount: 2 cups of coffee daily . Physical Examination Vital Signs 01/19/2022 9:28 EST Temperature Temporal Artery 36.9 DegC Peripheral Pulse Rate 58 bpm LOW Respiratory Rate 18 br/min Systolic Blood Pressure Non-Invasive 155 mmHg HI Diastolic Blood Pressure Non-Invasive 66 mmHg Blood Pressure Method Automatic Blood Pressure Location Left arm Vital Signs(last 24 hrs) Last Charted Resp Rate 18 br/min (JAN 19:) SBPH 155mmHg (JAN 19:) DBP66 mmHg (JAN 19:) Measurements from flowsheet : Measurements 01/19/2022 9:28 EST Height 167.6 cm Admission Weight 93.2 kg [place] Body Weight 59.26 kg Admission Body Mass Index 33.18 m2 Pain assessment: Pain Assessment 01/19/2022 9:28 EST Primary Pain Location Foot Primary Pain Laterality Left Primary Pain Intensity 1 Pain Scale Type 0-10 Pain scale . General: Alert and oriented. Airway: Normal temporomandibular joint mobility, Normal mouth, Normal neck range of motion. Mallampati classification: III (soft palate, base of uvula visible). Dentition Evaluation: Denies loose/chipped teeth. Respiratory: Respirations are non-labored. Cardiovascular: Normal rate. Neurologic: Alert, Oriented. Review / Management Results review: No qualifying data available , Lab results 01/19/2022 10:29 EST SN - GCD - ASA Class 3 SN - GCD - Post-operative Diagnosis ACHILLES TENDONITIS/HAGLUNDS DEFORMITY,LEFT; HAGLUNDS/SPUR CALCANEUS, LEFT SN - GCD - Case Level Level 3 01/19/2022 10:28 EST SN - [place] - Medication LIDOCAINE 1%/EPI 30ML VIAL XYLOC SN - [place] - Route of Administration Local SN - [place] - By (Single) SN - [place] - By (Single) 01/19/2022 10:28 EST [place] History and Physical 01/19/2022 10:26 EST SN - Cul - Culture Type No Specimen per Surgeon 01/19/2022 10:20 EST SN - Proc - Actual Procedure . SN - Proc - Actual Procedure EXCISION HAGLUNDS DEFORMITY/REMODEL ACHILLES TENDON LEFT 01/19/2022 10:20 EST SN - Assess - LOC Alert, Awake SN - Assess - Orientation Oriented X 3 SN - Assess - Post-op Skin Integrity Intact/Dry 01/19/2022 10:20 EST SN - CAt - Case Attendee SN - CAt - Case Attendee SN - CAt - Case Attendee SN - CAt - Case Attendee SN - CAt - Case Attendee SN - CAt - Case Attendee SN - CAt - Case Attendee SN - CAt - Case Attendee SN - CAt - Case Attendee SN - CAt - Case Attendee SN - CAt - Role Performed Primary Surgeon SN - CAt - Role Performed PAINTER SIGN MAINTENANCE SN - CAt - Role Performed In Store Marketing Representative 1 SN - CAt - Role Performed Scrub 1 SN - CAt - Role Performed Book Sorter 1 01/19/2022 9:39 EST Lactated Ringers Injection Begin Bag 1,000 mL mL 01/19/2022 9:38 EST SN - Preop - CTm Pt Ready for OR/Proced 01/19/2022 9:38 01/19/2022 9:28 EST Height 167.6 cm Admission Weight 93.2 kg [place] Body Weight 59.26 kg Admission Body Mass Index 33.18 m2 Temperature Temporal Artery 36.9 DegC Peripheral Pulse Rate 58 bpm LOW Respiratory Rate 18 br/min Systolic Blood Pressure Non-Invasive 155 mmHg HI Diastolic Blood Pressure Non-Invasive 66 mmHg Blood Pressure Method Automatic Blood Pressure Location Left arm Primary Pain Location Foot Primary Pain Laterality Left Primary Pain Intensity 1 Pain Scale Type 0-10 Pain scale Heart Rhythm Regular Oxygen Therapy Room air Oxygen Saturation 98 % Abdomen Description Non-distended, Soft Abdomen Palpation Non-Tender Bowel Continence Continent Bowel Sounds All Quadrants Present Urinary Elimination Voiding, no difficulties Skin Temperature Warm Skin Description [place], Normal for ethnicity, Dry Skin Integrity Intact Skin Moisture General Dry IV Present Present Hand Left 01/19/2022 20 gauge Peripheral IV Activity: Assessed Peripheral IV Dressing Condition: Clean, Dry, Intact Peripheral IV Dressing Activity: Applied Peripheral IV Line Status/Patency: Flushes easily, Continuous infusion Peripheral IV Site Condition: No complications Peripheral IV Number of Attempts: 1 Extremity Movement Equal Level of Consciousness Alert CALVIN Yes Strength All Extremities Strong Tone All Extremities Normal Sensation All Extremities Intact Left Upper Extremity Sensation Intact Right Upper Extremity Sensation Intact Left Lower Extremity Sensation Intact Right Lower Extremity Sensation Intact Affect/Behavior Appropriate, Calm, Cooperative Orientation Oriented x 4 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 Yes 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 Consent Form Signed Yes Patient Dressed In Hospital gown, No undergarments Pre-op Preparation Glasses removed CHG Preoperative Wash/Wipe Night before procedure, Day of procedure History & Physical Update On Chart Yes History & Physical On Chart Yes Obstructive Sleep Apnea Assess Completed Yes Orientation Assessment Oriented x 4 Belongings At Bedside Cell phone, Glasses, Pants, Shirt, Shoes Activity Status ADL Ambulating in hernández, Ambulating in room, Awake Assistive Device None SCD On/Re-applied right knee high NPO Status Maintained Standard Safety ID band on, Allergy Band on, Call device within reach Demonstrates Correct Call Light Use Yes Allergy Band on and Verified Yes Patient ID Band on and Verified Yes Implants Verified Yes Pacemaker/AICD Verified Yes Anesthesia Consent Signed Yes Blood Consent Signed Yes Last Fluid Intake 01/12/2022 6:00 Last Food Intake 01/18/2022 20:00 Last Void 01/19/2022 9:15 01/19/2022 9:21 EST Infectious Disease Symptoms Patient states no symptoms Safety Brochure Information Reviewed Yes Iris Welcome Video Viewed No Teaching Evaluation Verbalizes/Nonverbally indicates understanding Admission Note-Nursing Same Day Patient History (Modified) 01/19/2022 9:18 EST SN - Preop - CTm Pt in SDS Room 01/19/2022 9:18 . Assessment and Plan [place] [employer]esthesi[employer] (ASA) physical status classification: Class III. Anesthetic Preoperative Plan Anesthetic technique: MAC. Informed consent: signed by patient. Digitally Signed by MAGDA ZAMORA on 01/19/2022 10:33 AM [facility]12-09-2022 Note IRIS ADMISSION HISTORY AND PHYSICIAL CHIEF COMPLAINT: HISTORY OF PRESENT ILLNESS: REVIEW OF SYSTEMS: ACTIVE PROBLEMS: (9) Gastroesophageal reflux disease (441051352) H/O ovarian cancer ([id number]) History of kidney stones (4927013677) Hypertension goal BP (blood pressure) < 150/90 (1919772580) Migraine with aura, not intractable (2468471) Moderate mitral valve regurgitation (6077213974) Peripheral edema (941960981) Reflux gastritis (301203514) TMJ (temporomandibular joint syndrome) (95794066) MEDICATIONS: Active Inpt Meds: None Active PRN Meds: None One Time Meds: None Active IV Meds: Lactated Ringers Infusion 1,000 mL (LR 1,000 mL) Start: 01/19/22 9:19:00 EST, Rate: 125 mL/hr, 01/19/22 9:19:00 EST ALLERGIES: (1) Detrol FAMILY HISTORY: SOCIAL HISTORY: PHYSICAL EXAM: VITALS: [id number](kg) 01/19 09:2836.9--232312BA86/09 93.2 24 Hr Tmax: 36.9 at 01/19 09:28 36 Hr Tmax: 36.9 at 01/19 09:28 Vital Signs are the last 5 in the past 48 hours. Weights display the last 5 within 7 days. Initial Wt: 01/19 93.2 kg 205 lb Current Wt: 01/19 93.2 kg 205 lb GENERAL: HEENT: CARDIOVASCULAR: RESPIRATORY: ABDOMEN: EXREMETIES: NEUROLOGICAL: PSYCHIATRIC: LABS: No 36hr Lab Data DIAGNOSTICS: IMPRESSION: PLAN: History and Physical Update I have examined the patient; reviewed the H&P and there are no changes to the H&P unless noted below. Digitally Signed by JILL STAFFORD DPM on 01/19/2022 10:28 AM [facility]07-05-2022 Note ORIGINAL EXAMINATION: BONE DENSITOMETRY08/15/2021 10:10 am TECHNIQUE: Dual energy bone densitometry lumbar spine and left hip. COMPARISON: None HISTORY: Reason for Exam: Osteoporosis Screening FINDINGS: Total bone mineral density of the L1-L4 is 1.123 grams per square centimeters, and T-score being 0.7, indicating that this patient has normal bone mineral density. Bone mineral density of the left femoral neck is 0.767 grams per square centimeters, and T-score being -0.7, indicating that this patient has normal bone mineral density. Total bone mineral density of the left hip is 0.977 grams per square centimeters, and T-score being 0.3, indicating that this patient has normal bone mineral density. IMPRESSION: Normal bone mineral density. I have personally reviewed the images of this examination and agree with the resident's findings and interpretation. Interpreted by: Selvin Bowers MD Preliminary Report By: Jag Marcelo Electronically signed By Selvin Bowers MD Dictated Date: 08/15/2021 10:24:27 AM Prelim Date: 08/15/2021 11:30:27 AM Sign Date: 08/15/2021 11:30:27 AM Ordering Provider: MILVIA [facility]07-05-2022 Note ORIGINAL EXAMINATION: BONE DENSITOMETRY08/15/2021 10:10 am TECHNIQUE: Dual energy bone densitometry lumbar spine and left hip. COMPARISON: None HISTORY: Reason for Exam: Osteoporosis Screening FINDINGS: Total bone mineral density of the L1-L4 is 1.123 grams per square centimeters, and T-score being 0.7, indicating that this patient has normal bone mineral density. Bone mineral density of the left femoral neck is 0.767 grams per square centimeters, and T-score being -0.7, indicating that this patient has normal bone mineral density. Total bone mineral density of the left hip is 0.977 grams per square centimeters, and T-score being 0.3, indicating that this patient has normal bone mineral density. IMPRESSION: Normal bone mineral density. I have personally reviewed the images of this examination and agree with the resident's findings and interpretation. Interpreted by: Selvin Bowers MD Preliminary Report By: Jag Marcelo Electronically signed By Selvin Bowers MD Dictated Date: 08/15/2021 10:24:27 AM Prelim Date: 08/15/2021 11:30:27 AM Sign Date: 08/15/2021 11:30:27 AM [facility]ments Appointment Date:12/12/2020 09:20:00 AM Scheduled Provider: Location:[facility] Appointment Type:PC Office Procedure Lesion Removal Appointment Date:11/09/2021 10:00:00 AM Scheduled Provider:AROLDO MCKEON Location:[facility] Appointment Type:[facility] Future Scheduled Tests Laboratory* Thyroid Stimulating Hormone 11/22/20 * Complete Blood Count 11/22/20 * Lipid Profile 11/22/20 * Complete Metabolic Panel 11/22/20 Radiology* US Thyroid 11/22/20 * MA Mammo Screening Bilateral w/ Fernando 11/22/20 [facility] Evaluation + Plan note Future Appointments Appointment Date:12/12/2020 01:30:00 PM Scheduled Provider: Location:[facility] Appointment Type:MA Mammogram Screening Bilateral w/ Fernando Appointment Date:12/12/2020 02:00:00 PM Scheduled Provider: Location:[facility] Appointment Type:US Thyroid Appointment Date:12/15/2020 08:00:00 AM Scheduled Provider: Location:[facility] Appointment Type:PC Office Procedure Lesion Removal Appointment Date:11/09/2021 10:00:00 AM Scheduled Provider:AROLDO MCKEON Location:[facility] Appointment Type:CV OV Future Scheduled Tests Radiology* US Thyroid 12/12/20 * MA Mammo Screening Bilateral w/ Fernando 12/12/20 [facility] Evaluation + Plan note Future Appointments Appointment Date:12/15/2020 08:00:00 AM Scheduled Provider: Location:[facility] Appointment Type:PC Office Procedure Lesion Removal Appointment Date:11/09/2021 10:00:00 AM Scheduled Provider:AROLDO MCKEON Location:[facility] Appointment Type:CV OV [facility] Evaluation + Plan note Future Appointments Appointment Date:11/09/2021 10:00:00 AM Scheduled Provider:AROLDO MCKEON Location:[facility] Appointment Type:CV OV Future Scheduled Tests Laboratory* Urine Culture 12/15/20 [facility] Evaluation + Plan note Future Appointments Appointment Date:11/09/2021 10:00:00 AM Scheduled Provider:AROLDO MCKEON Location:[facility] Appointment Type:CV OV Future Scheduled Tests Laboratory* Urine Culture 12/15/20 Radiology* XR Ankle Minimum 3 Views Right 01/23/21 * XR Tibia/Fibula 2 Views Right 01/23/21 [facility] Evaluation + Plan note Future Appointments Appointment Date:11/09/2021 10:00:00 AM Scheduled Provider:AROLDO MCKEON Location:[facility] Appointment Type:CV OV Future Scheduled Tests Laboratory* Urine Culture 12/15/20 Radiology* XR Ankle Minimum 3 Views Right 01/23/21 * XR Tibia/Fibula 2 Views Right 01/23/21 [facility] Evaluation + Plan note Future Appointments Appointment Date:06/26/2022 08:00:00 AM Scheduled Provider:BEAR HAINES DO Location:[facility] Appointment Type:[facility] Medicare Appointment Date:11/14/2022 09:00:00 AM Scheduled Provider:AROLDO MCKEON Location:[facility] Appointment Type:CV OV Future Scheduled Tests Radiology* XR Ankle Minimum 3 Views Right 01/23/21 * XR Tibia/Fibula 2 Views Right 01/23/21 [facility] Evaluation + Plan note Future Appointments Appointment Date:06/26/2022 08:00:00 AM Scheduled Provider:BEAR HAINES DO Location:[facility] Appointment Type:PC Wellness Medicare Appointment Date:11/14/2022 09:00:00 AM Scheduled Provider:AROLDO MCKEON Location:[facility] Appointment Type:CV OV [facility] Evaluation + Plan note Future Appointments Appointment Date:08/07/2022 11:30:00 AM Scheduled Provider:BEAR HAINES DO Location:[facility] Appointment Type:PC Wellness Medicare Appointment Date:11/14/2022 09:00:00 AM Scheduled Provider:AROLDO MCKEON Location:[facility] Appointment Type: OV [facility] Evaluation + Plan note Future Appointments Appointment Date:11/14/2022 09:00:00 AM Scheduled Provider:AROLDO MCKEON Location:[facility] Appointment Type:CV OV Appointment Date:02/06/2023 11:30:00 AM Scheduled Provider:BEAR HAINES DO Location:[facility] Appointment Type: OV Future Scheduled Tests Laboratory* Hepatitis C Antibody IgG 08/07/22 Radiology* MA Mammo Screening Bilateral w/ Fernando 01/07/23 [facility] Evaluation + Plan note Future Appointments Appointment Date:02/06/2023 11:30:00 AM Scheduled Provider:BEAR HAINES DO Location:[facility] Appointment Type:PC OV Future Scheduled Tests Laboratory* Hepatitis C Antibody IgG 08/07/22 Radiology* CT Coronary Angiography w+w/o Contrast 11/14/22 * CT Coronary Calcium Score w/o Contrast 11/14/22 [facility] Evaluation + Plan note Future Appointments Appointment Date:03/19/2023 11:00:00 AM Scheduled Provider:AMBER COHEN DO Location:[facility] Appointment Type:PC Office Procedure Appointment Date:05/09/2023 01:30:00 PM Scheduled Provider:BEAR HAINES DO Location:[facility] Appointment Type:PC OV Diagnostic Tests Pending * Estrogens Fractionated, S 03/06/23 Future Scheduled Tests Radiology* CT Coronary Angiography w+w/o Contrast 11/14/22 * CT Coronary Calcium Score w/o Contrast 11/14/22 [facility] Evaluation + Plan note Future Appointments Appointment Date:03/19/2023 11:00:00 AM Scheduled Provider:AMBER COHEN DO Location:[employer] [facility] Appointment Type:PC Office Procedure Appointment Date:05/09/2023 01:30:00 PM Scheduled Provider:BEAR HAINES DO Location:[facility] Appointment Type:PC OV Future Scheduled Tests Radiology* CT Coronary Angiography w+w/o Contrast 11/14/22 * CT Coronary Calcium Score w/o Contrast 11/14/22 [facility] Evaluation + Plan note Future Appointments Appointment Date:06/11/2023 03:00:00 PM Scheduled Provider:BEAR HAINES DO Location:[facility] Appointment Type:PC OV Pre Op Appointment Date:06/28/2023 09:00:00 AM Scheduled Provider: Gilda:JACQUES Appointment Type:PT Outpatient Evaluation Future Scheduled Tests Radiology* CT Coronary Angiography w+w/o Contrast 11/14/22 * CT Coronary Calcium Score w/o Contrast 11/14/22 [facility] Evaluation + Plan note Future Appointments Appointment Date:06/28/2023 09:00:00 AM Scheduled Provider: Location:[facility] Appointment Type:PT Outpatient Evaluation Appointment Date:08/27/2023 03:00:00 PM Scheduled Provider:BEAR HAINES DO Location:[facility] Appointment Type:PC Wellness Medicare Future Scheduled Tests Radiology* CT Coronary Angiography w+w/o Contrast 11/14/22 * CT Coronary Calcium Score w/o Contrast 11/14/22 [facility] Evaluation + Plan note Future Appointments Appointment Date:08/27/2023 03:00:00 PM Scheduled Provider:BEAR HAINES DO Location:[facility] Appointment Type:PC Wellness Medicare Future Scheduled Tests Radiology* CT Coronary Angiography w+w/o Contrast 11/14/22 * CT Coronary Calcium Score w/o Contrast 11/14/22 [facility] Enviancealuation + Plan note Future Appointments Appointment Date:02/25/2024 10:30:00 AM Scheduled Provider:BEAR HAINES DO Location:[facility] Appointment Type:PC Wellness Medicare Future Scheduled Tests Radiology* MA Mammo Screening Bilateral w/ Fernando 01/14/24 * BD Bone Density DEXA Axial Skeleton 08/27/23 * CT Coronary Angiography w+w/o Contrast 11/14/22 * CT Coronary Calcium Score w/o Contrast 11/14/22 [facility] Enviancealuation + Plan note Future Appointments Appointment Date:02/25/2024 10:30:00 AM Scheduled Provider:BEAR HAINES DO Location:[facility] Appointment Type:PC Wellness Medicare [facility] evaluation + Plan note Future Appointments Appointment Date:03/24/2024 01:15:00 PM Scheduled Provider: Location:[facility] Appointment Type:PC Nurse Appointment Date:09/01/2024 10:30:00 AM Scheduled Provider:BEAR HAINES DO Location:[facility] Appointment Type:[facility] [address] evaluation + Plan note Future Appointments Appointment Date:06/24/2024 09:00:00 AM Scheduled Provider: Location:[facility] Appointment Type:MEDS - Weight Management Appointment Date:06/24/2024 09:30:00 AM Scheduled Provider: Location:[facility] Appointment Type:NUT Diet Visit Individual Appointment Date:09/01/2024 10:30:00 AM Scheduled Provider:BEAR HAINES DO Location:[facility] Appointment Type:PC Wellness Annual Appointment Date:03/16/2025 10:30:00 AM Scheduled Provider:AROLDO MCKEON Location:[facility] Appointment Type:[facility] Evaluation + Plan note Future Appointments Appointment Date:06/30/2024 08:00:00 PM Scheduled Provider: Location:[facility] Appointment Type:SL PSG (Polysomnograph) Appointment Date:07/29/2024 09:00:00 AM Scheduled Provider: Location:[facility] Appointment Type:MEDS - Weight Management Appointment Date:07/29/2024 09:30:00 AM Scheduled Provider: Location:[facility] Appointment Type:NUT Diet Visit Individual Appointment Date:09/01/2024 10:30:00 AM Scheduled Provider:BEAR HAINES DO Location:[facility] Appointment Type:PC Wellness Annual Appointment Date:03/16/2025 10:30:00 AM Scheduled Provider:AROLDO MCKEON Location:[facility] Appointment Type:[facility] Evaluation + Plan note Future Appointments Appointment Date:07/29/2024 09:00:00 AM Scheduled Provider: Location:[facility] Appointment Type:MEDS - Weight Management Appointment Date:07/29/2024 09:30:00 AM Scheduled Provider: Location:[facility] Appointment Type:NUT Diet Visit Individual Appointment Date:09/01/2024 10:30:00 AM Scheduled Provider:BEAR HAINES DO Location:[facility] Appointment Type:PC Wellness Annual Appointment Date:03/16/2025 10:30:00 AM Scheduled Provider:AROLDO MCKEON Location:[facility] Appointment Type:[facility] Evaluation + Plan note Future Appointments Appointment Date:09/01/2024 10:30:00 AM Scheduled Provider:BEAR HAINES DO Location:[facility] Appointment Type:PC Wellness Annual Appointment Date:09/02/2024 09:00:00 AM Scheduled Provider: Location:[facility] Appointment Type:MEDS - Weight Management Appointment Date:09/02/2024 09:30:00 AM Scheduled Provider: Location:[facility] Appointment Type:NUT Diet Visit Individual Appointment Date:03/16/2025 10:30:00 AM Scheduled Provider:AROLDO MCKEON Location:[facility] Appointment Type: OV [facility] Evaluation + Plan note Future Appointments Appointment Date:09/04/2024 11:30:00 AM Scheduled Provider: Location:[facility] Appointment Type:US Thyroid Appointment Date:09/30/2024 09:00:00 AM Scheduled Provider: Location:[facility] Appointment Type:MEDS - Weight Management (AO) Appointment Date:09/30/2024 09:30:00 AM Scheduled Provider: Location:[facility] Appointment Type:NUT Diet Visit Individual Appointment Date:03/04/2025 11:00:00 AM Scheduled Provider:BEAR HAINES DO Location:[facility] Appointment Type:PC OV Follow Up Appointment Date:03/16/2025 10:30:00 AM Scheduled Provider:AROLDO MCKEON Location:[facility] Appointment Type:CV OV Future Scheduled Tests Radiology* US Thyroid 09/04/24 [facility] Evaluation + Plan note Future Appointments Appointment Date:09/30/2024 09:00:00 AM Scheduled Provider: Location:[facility] Appointment Type:MEDS - Weight Management (AO) Appointment Date:09/30/2024 09:30:00 AM Scheduled Provider: Location:[facility] Appointment Type:NUT Diet Visit Individual Appointment Date:03/04/2025 11:00:00 AM Scheduled Provider:BEAR HAINES DO Location:[facility] Appointment Type:PC OV Follow Up Appointment Date:03/16/2025 10:30:00 AM Scheduled Provider:AROLDO MCKEON Location:[facility] Appointment Type: OV [facility] Evaluation + Plan note Future Appointments Appointment Date:10/28/2024 08:30:00 AM Scheduled Provider: Location:[facility] Appointment Type:MEDS - Weight Management (AO) Appointment Date:10/28/2024 09:00:00 AM Scheduled Provider: Location:[facility] Appointment Type:NUT Diet Visit Individual Appointment Date:03/04/2025 11:00:00 AM Scheduled Provider:BEAR HAINES DO Location:[facility] Appointment Type:PC OV Follow Up Appointment Date:03/16/2025 10:30:00 AM Scheduled Provider:AROLDO MCKEON Location:[facility] Appointment Type: OV [facility] Evaluation + Plan note Future Appointments Appointment Date:12/09/2024 08:30:00 AM Scheduled Provider: Location:[facility] Appointment Type:MEDS - Weight Management (AO) Appointment Date:12/09/2024 09:00:00 AM Scheduled Provider: Location:[facility] Appointment Type:NUT Diet Visit Individual Appointment Date:03/04/2025 11:00:00 AM Scheduled Provider:BEAR HAINES DO Location:[facility] Appointment Type:PC OV Follow Up Appointment Date:03/16/2025 10:30:00 AM Scheduled Provider:AROLDO MCKEON Location:[facility] Appointment Type: OV [facility] Evaluation noteNo assessment information available [facility] Work Phone: Evaluation note* Diagnosis Onset Date Resolution Status Admit Date GERD (gastroesophageal reflu x disease) acute September 22 1:12pm [facility] Work Phone: Hospital course Narrative No data available for this section [facility] Hospital Discharge instructions No data available for this section [facility] Progress note No data available for this section [facility] Reason for referral (narrative)No reason for [facility] Work [facility]: Chief Complaint and Reason for Visit Chief Complaint UTI Chief Complaint UTI CP, HTN, MVP, HLD Chief Complaint Admit Date Chronic GERD September 22, 2024 1: 12pm Reason for Visit Admit Date GERD (gastroesophageal reflux disease) A ugust 2024 1:12pm Summary Purpose Family History Relationship Condition Age at Onset Recorded Date/T joshua mother Allergic rhinitis Unknown Alzheimer's dementia Unknown Asthma Unknown Congestive heart failure Unknown Malignant neoplasm Unknown Osteoarthritis Unknown Cardiac disease Unknown Lymphoma Unknown Osteoporosis Unknown father Malignant neoplasm Unknown Hypertension Unknown sister Malignant neoplasm Unknown Depression Unknown No Family History Records Found Advance Directives No Advanced Directives Records FoundNo Advanced Directives Records FoundNo Advanced Directives Records Found Additional Source Comments Care Team (unrecognized sect ion and content) Care Team Personnel Name: BEAR HAINES DO Position: P4 Physician - Primary Care Med Service: Active Provider Member Role: Primary Care Physician Address: Address: [address] [place] [address]- Care Team Related Persons Name: SAMSON JOSE Address: Home [address] [place], [place] [id number] [place] Care Team Personnel Name: BEAR HAINES DO Position: P4 Physician - Primary Care Member Role: Primary Care Physician Address: Address: [address] [place] [address]- Care Team Related Persons Name: JOSE DAVIES Address: Home [address] [place], [place] [id number] [place] Care Team Personnel Name: BEAR HAINES DO Position: P4 Physician - Primary Care Member Role: Primary Care Physician Address: Address: [address] [place] [address] Care Team Related Persons Name: JOSE DAVIES Address: Home [address] [place], [place] [phone] [place] Care Team Personnel Name: BEAR HAINES DO Position: P4 Physician - Primary Care Member Role: Primary Care Physician Address: Address: [address] [place] [address] [facility] [place] [address] Care Team Related Persons Name: JOSE DAVIES Address: Home [address] [place], [place] [phone] Patient Care team informatio n (unrecognized section and content) Team Status: Active Member Role Status Dates Dr. Bear Haines DO Primary Care Provider Active Team Status: Inactive Member Role Status Dates Dr. Jacqueline Traylor MD Attending Provider, Referring P deion Active Dr. Bear Haines DO Primary Care Provider Active Team Status: Inactive Member Role Status Dates Dr. Bear Haines DO Primary Care Provider Active Aroldo Mckeon NP, WHEAT WASHER-C Attending Provider, Referring Pr roland Active Team Status: Active Member Role/Relationship Status Dates Dr. Bear Haines DO Primary Care Provider Active Team Status: Inactive Member Role/Relationship Status Dates Dr. Bear Haines DO Primary Care Provider Active Start: August 11, 2024 Dr. Jacqueline Traylor MD Attending Provider Active Start: August 11, 2024 Team Status: Inactive Member Role/Relationship Status Dates Dr. Bear Haines DO Primary Care Provider Active Start: September 22, 2024 End: September 22, 2024 Dr. Bear Haines DO Referring Provider Active St art: September 22, 2024 End: September 22, 2024 Stacey Galvan NP-C Attending Provider Active Start: September 22, 2024 End: September 22, 2024 Goals (unrecognized section and content) Goals may be documented in a n alternate section INFORMATION SOURCE (unrecogn ized section and content) DATE CREATED AUTHOR 09/14/2023 [facility] ([place]) DATE CREATED AUTHOR AUTHOR'S ORGANIZ ATION 10/31/[address] [facility] DATE CREATED AUTHOR AUTHOR'S ORGANIZ ATION 11/03/2024 [facility] FOR RECORDS PERTAINING TO PATIENTS WHO ARE OR HAVE BEEN ENROLLED IN A CHEMICAL DEPENDENCY/SUBSTANCEABUSE PROGRAM, SOME INFORMATION MAY BE OMITTED. This clinical summary was aggregated from multiple sources. Caution should be exercised in using it in the provision of clinical care. This summary normalizes information from multiple sources, and as a consequence, information in this document may materially change the coding, format and clinical context of patient data. In addition, data may be omitted in some cases. CLINICAL DECISIONS SHOULD BE BASED ON THE PRIMARY CLINICAL RECORDS. [facility]. provides no warranty or guarantee of the accuracy or completeness of information in this document.
[2024-11-03] MEDS: Lactated Ringers 1,000 ML 15 ML IV (06:06)
--- NOTE | 2024-11-03 06:19 | PRE.ANES_ITS ---
ASA Classification* ASA Classification ASA Classification: 2 Assessment & Plan Anesthesia* Anesthesia Assessment Anesthesia Assessment: Discussed sedation and/or anesthesia options, risks, benefits, and alternatives with patient/parents/legal guardian/POA. Questions invited. The patient/parents/legal guardian/POA seems to understand and agrees to proceed with anesthesia plan. Reviewed the physical assessment, medical history, allergy history and patient home medications list prior to surgery/procedure/anesthetic and documented any changes. Performed airway and anesthesia risk assessments. Anesthesia Type Anesthesia Type: MAC History Source History Obtained from:: Patient and Chart Anesthesia Focused Assessment* Temperature: 97.2 F Pulse Rate: 64 Blood Pressure: 136/72 Respiratory Rate: 18 Pulse Ox: 98 Oxygen Delivery Method: Room Air Airway Assessment Mouth opens: >3 cm Mallampati Score: IV Teeth Condition: Caps/Crowns (Patient has a left upper crown. It is tight.), Missing (Missing a right upper molar.) and Partial (Patient has a bridge on tooth #10. It is permanent and tight.) Neck Range of motion (ROM): Full ROM Labs Anesthesia Preop lab: CBC CHEMISTRY COAG Pre-Assessment Diagnosis/Proposed Procedure Planned Operative Procedure(s): EGD Anesthesia History Anesthesia History - web developer: Anesthesia History - web developer Hx Hospitalization No 10/28/24 14:14 Any Problems With Anesthesia No 10/28/24 14:14 Cholinesterase deficiency No 10/28/24 14:14 You/Your Family Experience No 10/28/24 14:14 fever (hyperthermia) with Relationship Recent Exposure to Contagious No 11/03/24 05:57 Disease Does patient have nerve No 10/28/24 14:14 stimulator Patient instructed to have device shut off --Does patient have Pacemaker No 11/03/24 05:57 or ICD? When Was Last Pacemaker Check QUESTION #4 FULL TEXT: You/Your Family Experience fever (hyperthermia) with Anesthesia Last Oral Intake Last Oral intake: Last Oral Intake NPO since 18:00 11/03/24 05:57 Meds taken in AM with sips of water? Meds patient instructed to take am of surgery Any additional information?: Yes Meds taken in AM with sips of water?: Yes Meds patient instructed to take am of surgery: Irbesartan PONV PONV - web developer: PONV - web developer Female Yes 10/28/24 14:14 HX of Motion Sickness No 10/28/24 14:14 HX of N/V After Surgery No 10/28/24 14:14 Non-Smoker Yes 10/28/24 14:14 Duration of Surgery greater No 10/28/24 14:14 than 60 minutes Number of Risk Factors 2 10/28/24 14:14 PONV Score Moderate Risk 10/28/24 14:14 Height & Weight Height & Weight: Anesthesia: Height & Weight Height 5 ft 6 in 11/03/24 05:57 Weight: 79 kg 11/03/24 05:57 Body Mass Index (BMI) 28.0 11/03/24 05:57 Respiratory Assessment Respiratory Assessment - web developer: Respiratory Tract Infection Hx - web developer Hx Respiratory Tract Infection No 10/28/24 14:14 STOP Sleep Apnea STOP Sleep Apnea - web developer: STOP Sleep Apnea - web developer Hx Hypertension Yes: CONTROLLED ON MED 10/28/24 14:14 Hx Sleep Apnea No 10/28/24 14:14 CPAP BIPAP Do you snore loudly (louder Yes 10/28/24 14:14 than talking or can be heard Do you often feel tired/ No 10/28/24 14:14 fatigued/ sleepy during daytime? Has anyone observed you stop No 10/28/24 14:14 breathing during sleep? STOP Results Positive 10/28/24 14:14 QUESTION #5 FULL TEXT : Do you snore loudly (louder than talking or can be heard through closed doors)? 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 Specify any problems Hx of Preganancy in last 3 No 10/28/24 14:14 Months Nurse Filling Out Transfusion VCHRISTIN 10/28/24 14:14 & Questions: Date: 10/28/24 10/28/24 14:14 Time: 14:16 10/28/24 14:14 Patient unable to answer at this time (ie. confused, unrespo /Reproduction History /Reproductive History - web developer: /Reproductive Hx- web developer Hx Now No 10/28/24 14:14 Gestational Age (in weeks): EDC: Hx Hx Para Hx Section SAB No 10/28/24 14:14 Active Medications Active Medications: Current Medications Generic Name Dose Route Start Last Admin Trade Name Freq PRN Reason Stop Dose Admin Lactated Ringer's 1,000 mls @ 15 mls/hr 11/03/24 06:00 11/03/24 06:06 IV 15 mls/hr .Q48H ANGELINA Administration PFSH Medical History Wears contact lenses Wears glasses Post-menopausal Cancer History of steroid therapy Migraine headache Gastric reflux Non-smoker History of echocardiogram History of stress test Cardiology follow-up encounter History of irregular heartbeat Skin cancer Mitral valve prolapse Kidney stones Ovarian cancer UTI (urinary tract infection) Peripheral edema Migraine with aura History of kidney stones History of ovarian cancer Fatty liver Elevated HDL Diverticulosis Dermatofibroma History of basal cell carcinoma Mitral and aortic regurgitation Hypertension Home Medications ?Medication ?Instructions ?Recorded ?Last Taken ?Type vibegron 75 mg tablet (Gemtesa) 75 mg PO DAILY 3 11/02/24 History lactobacillus combination no.9 4 4,000 mmu cells PO QD AY 09/21/24 11/02/24 History billion cell capsule (Adult 50 Plus Probiotic) multivitamin 1 tab PO QAM 09/21/24 History naratriptan 1 mg tablet 1 mg PO PRN 09/21/24 Unknown History calcium 600 mg (as 1 cap PO BID 09/22/24 History carbonate)-vitamin D3 12.5 mcg (500 unit) capsule (Calcium with Vit D3) esomeprazole magnesium 20 mg 30 mg PO QDAY 09/22/24 History capsule,delayed release irbesartan 300 mg tablet 150 mg PO BID 09/22/2411/03 History semaglutide (weight loss) 1 mg/0.5 1 mg subcut QWEEK 0 09/22/24 10/24/24 History mL subcutaneous pen injector (Wegovy) Allergy/AdvReac Type Severity Reaction Status Date / Time tolterodine (From Detrol) AdvReac Intermediate buzzing in Verified 11/03/24 05:56 ears Family History Mother Allergic rhinitis Alzheimer's dementia Asthma CHF (congestive heart failure) Cancer Lung DJD (degenerative joint disease) Heart disease Lymphoma Osteoporosis Father Cancer prostate and renal Hypertension Sister Cancer Depression Surgical History History of esophagogastroduodenoscopy (EGD) H/O colonoscopy H/O wisdom tooth extraction History of tonsillectomy History of appendectomy History of total knee replacement H/O: hysterectomy H/O Achilles tendon repair Social History Smoking Status: Never smoker alcohol intake: current details: rare: 1 to 2 times a year substance use type: does not use what type of physical activity do you participate in: walking frequency: 5-6 times per week Review of Systems (Anesthesia) ROS Narrative System reviewed and no additional complaints, except as documented.
--- NOTE | 2024-11-03 06:30 | EGD_PTH ---
PATIENT: GAVIOTA DAVIES LOC: EN U#:[id number] AGE/SX: 69/F ROOM: RE11/03/[address]: Dr. Almas Larsen DO : 1955 BED: DIS: 11/03/2024 SPEC #: [id number] RECD: 11/03/24 07:56 STATUS: THALIA ERIKA #: [id number] WHIT: 11/03/24 06:[address]: Almas Larsen DEPT: SURGICAL PATHOLOGY RECD BY: Tristan Saha ENTERED: 11/03/24 10:38 SP TYPE: EGD BIOPSY LU DR: Dr. Bear Ash DO Tissues: A - Esophagus, NOS Procedures: Surgery Specimen Level IV HEADER OPERATION: EGD with biopsy PRE-OP DIAGNOSIS: GERD TISSUE SUBMITTED: A- Distal esophagus biopsy MICROSCOPIC DIAGNOSIS A. Distal esophagus, biopsy: * Cardio-oxyntic mucosa negative for goblet cell metaplasia. * Scant benign squamous mucosa. MICROSCOPIC DESCRIPTION Slides are reviewed. GROSS DESCRIPTION A. Received in fixative is one container labeled with the patient's name and designated Distal esophagus biopsy. The specimen consists of three irregular fragments of luis tissue that measure 0.3 to 0.7 cm. The specimen is totally submitted in one cassette. [place] 11/03/2024 CPT:74394
--- NOTE | 2024-11-03 06:35 | PCM.HP.STD ---
HPI - General General Date of Admission: 11/03/24 Date of Service: 11/03/24 Chief Complaint: GERD HPI Narrative GAVIOTA DAVIES, is a 69 F who presents Chief Complaint: GERD Details: EGD 12/03/2016 ([facility]) normal appearing distal esophagus, gastric erythema, no PUD and no evidence of Daniels's; no biopsies obtained - on esomeprazole 20mg daily for a long time, PCP recently reduced her to 20mg daily - long h/o GERD, burning acid up to throat - symptoms are controlled with esomeprazole - reports stopping esomeprazole for 3 days caused increased HB - denies any family h/o esophageal or gastric CA - as long as she takes the PPI her symptoms are well controlled, unless she has trigger foods such as wine - decreased dose is controlling symptoms - some N/V with Wegovy - denies any dysphagia/globus sensation as long as she takes PPI - colonoscopy November 2023 at [place] - per patient this was unremarkable - MVP - denies any pulmonary or renal disease [facility] Medical History Wears contact lenses Wears glasses Post-menopausal Cancer History of steroid therapy Migraine headache Gastric reflux Non-smoker History of echocardiogram History of stress test Cardiology follow-up encounter History of irregular heartbeat Skin cancer Mitral valve prolapse Kidney stones Ovarian cancer UTI (urinary tract infection) Peripheral edema Migraine with aura History of kidney stones History of ovarian cancer Fatty liver Elevated HDL Diverticulosis Dermatofibroma History of basal cell carcinoma Mitral and aortic regurgitation Hypertension Home Medications ?Medication ?Instructions ?Recorded ?Last Taken ?Type vibegron 75 mg tablet (Gemtesa) 75 mg PO DAILY 12/19/22 11/02/24 History lactobacillus combination no.9 4 4,000 mmu cells PO QDAY 09/21/24 11/02/24 History billion cell capsule (Adult 50 Plus Probiotic) multivitamin 1 tab PO QAM 09/21/24 10/31/24 History naratriptan 1 mg tablet 1 mg PO PRN 09/21/24 Unknown History calcium 600 mg (as 1 cap PO BID 09/22/24 11/02/24 History carbonate)-vitamin D3 12.5 mcg (500 unit) capsule (Calcium with Vit D3) esomeprazole magnesium 20 mg 30 mg PO QDAY 09/22/24 11/02/24 History capsule,delayed release irbesartan 300 mg tablet 150 mg PO BID 09/22/24 11/03/24 History semaglutide (weight loss) 1 mg/0.5 1 mg subcut QWEEK 09/22/24 10/24/24 History mL subcutaneous pen injector (Wegovy) Allergy/AdvReac Type Severity Reaction Status Date / Time tolterodine (From Detrol) AdvReac Intermediate buzzing in Verified 11/03/24 05:56 ears Family History Mother Allergic rhinitis Alzheimer's dementia Asthma CHF (congestive heart failure) Cancer Lung DJD (degenerative joint disease) Heart disease Lymphoma Osteoporosis Father Cancer prostate and renal Hypertension Sister Cancer Depression Surgical History History of esophagogastroduodenoscopy (EGD) H/O colonoscopy H/O wisdom tooth extraction History of tonsillectomy History of appendectomy History of total knee replacement H/O: hysterectomy H/O Achilles tendon repair Social History Smoking Status: Never smoker alcohol intake: current details: rare: 1 to 2 times a year substance use type: does not use what type of physical activity do you participate in: walking frequency: 5-6 times per week ROS Constitutional Constitutional: Denies fatigue, fever(s), poor appetite, weight gain or weight loss Gastrointestinal Gastrointestinal: Denies belching, bloating, change in bowel habits, change in stool character, chewing difficulty, coffee ground emesis, constipation, cramping, diarrhea, dyspepsia, dysphagia, early satiety, excessive flatus, fecal incontinence, heartburn, hematemesis, hematochezia, hemorrhoids, loose stools, melena, nausea, odynophagia, rectal bleeding, tenesmus, vomiting or weight changes Vital Signs Vital Signs Vital Signs: 11/03/24 05:57 11/03/24 05:57 11/03/24 06:25 Temperature 97.2 F L 97.2 F L Temperature Source Temporal Pulse Rate 64 64 Respiratory Rate 18 18 Respiratory Pattern Normal Blood Pressure 136/72 H 136/72 H Blood Pressure Mean 93 Blood Pressure Source Monitor Blood Pressure Position Semi-Fowlers Blood Pressure Location Left Arm Pulse Ox 98 98 Oxygen Delivery Method Room Air Room Air Weight Weight: 174 lb 2.643 oz Body Mass Index (BMI) 28.0 Physical Exam Const alert, oriented x3, no apparent distress and healthy appearing General Appearance: cooperative GI normal to inspection, nondistended, normoactive bowel sounds, soft to palpation, non-tender and non-distended Percussion: normal to percussion Rectal Exam: deferred Assessment & Plan Assessment/Plan (1) GERD (gastroesophageal reflux disease): PLAN: Assessment and Plan Assessment and Plan (1) GERD (gastroesophageal reflux disease): Status: Acute Plan 69y/o female presents for initial consultation of GERD. PMH significant for HTN, HDL, basal cell carcinoma, GERD, fatty liver, and ovarian CA. EGD was last performed in 2017 ([facility]) and revealed gastric erythema, otherwise unremarkable. Review of medications is significant for esomeprazole 20mg QD, meloxicam 15mg PRN and Wegovy SQ weekly. She reports previously holding PPI has caused an increase in reflux symptoms and globus sensation. We have discussed the theoretical risks of PPI therapy. She will proceed with an EGD at this time. Patient Instructions: Continue PPI daily PPIs are the most effective medical treatment for GERD. Some medical studies have identified an association between the long-term use of PPIs and the development of numerous adverse conditions including intestinal infections, pneumonia, stomach cancer, osteoporosis-related bone fractures, chronic kidney disease, deficiencies of certain vitamins and minerals, heart attacks, strokes, dementia, and early . Those studies have flaws, are not considered definitive, and do not establish a [id number] relationship between PPIs and the adverse conditions. High-quality studies have found that PPIs do not significantly increase the risk of any of these conditions except intestinal infections. Nevertheless, we cannot exclude the possibility that PPIs might confer a small increase in the risk of developing these adverse conditions. For the treatment of GERD, gastroenterologists generally agree that the well-established benefits of PPIs far outweigh their theoretical risks.
--- NOTE | 2024-11-03 06:59 | OP.PROVAT_ITS ---
11/03/2024 Bear Ash Do Re : Upper GI endoscopy procedure for Alessia Wright Dear Mihir This procedure was performed on Sunday, November 03, 2024. My impressions and recommendations are as follows: Impressions : - Z-line irregular, 38 cm from the incisors. Biopsied. - No gross lesions in the entire stomach. - Normal examined duodenum. Recommendations : - Discharge patient to home. - Resume previous diet. - Continue present medications. - Await pathology results. My findings are described in the full procedure note, which is enclosed. If I can be of further assistance, please feel free to contact me at . Sincerely, Almas Larsen, 11/03/2024 6:58:22 AM This report has been signed electronically.
--- NOTE | 2024-11-03 06:59 | OP.EGD_ITS ---
Patient Name: Alessia Wright Procedure Date: 11/03/2024 6:17 AM Date of : 1955 Age: 69 Procedure: Upper GI endoscopy Indications: Heartburn, Suspected esophageal reflux Providers: Almas Larsen DO Medicines: Monitored Anesthesia Care Patient Profile: This is a 69 year old female. Refer to note in patient chart for documentation of history and physical. Patient has symptoms of acute dyspepsia and chronic heartburn. Complications: No immediate complications. Procedure: Pre-Anesthesia Assessment: - Prior to the procedure, a History and Physical was performed, and patient medications and allergies were reviewed. The patient is competent. The risks and benefits of the procedure and the sedation options and risks were discussed with the patient. All questions were answered and informed consent was obtained. Patient identification and proposed procedure were verified by the physician in the pre-procedure area. Mental Status Examination: alert and oriented. Airway Examination: normal oropharyngeal airway and neck mobility. Respiratory Examination: clear to auscultation. CV Examination: normal. Prophylactic Antibiotics: The patient does not require prophylactic antibiotics. Prior Anticoagulants: The patient has taken no anticoagulant or antiplatelet agents except for NSAID medication. ASA Grade Assessment: II - A patient with mild systemic disease. After reviewing the risks and benefits, the patient was deemed in satisfactory condition to undergo the procedure. The anesthesia plan was to use monitored anesthesia care (MAC). Immediately prior to administration of medications, the patient was re-assessed for adequacy to receive sedatives. The heart rate, respiratory rate, oxygen saturations, blood pressure, adequacy of pulmonary ventilation, and response to care were monitored throughout the procedure. The physical status of the patient was re-assessed after the procedure. After obtaining informed consent, the endoscope was passed under direct vision. Throughout the procedure, the patient's blood pressure, pulse, and oxygen saturations were monitored continuously. The gastroscope was introduced through the mouth, and advanced to the second part of duodenum. The upper GI endoscopy was accomplished without difficulty. The patient tolerated the procedure well. Scope In: 6:47:45 AM Scope Out: 6:51:01 AM Total Procedure Duration Time 0 hours 3 minutes 16 seconds Findings: The Z-line was irregular and was found 38 cm from the incisors. Biopsies were taken with a cold forceps for histology. Verification of patient identification for the specimen was done. Estimated blood loss was minimal. No gross lesions were noted in the entire examined stomach. The examined duodenum was normal. Impression: - Z-line irregular, 38 cm from the incisors. Biopsied. - No gross lesions in the entire stomach. - Normal examined duodenum. Recommendation: - Discharge patient to home. - Resume previous diet. - Continue present medications. - Await pathology results. Procedure Code(s): --- Professional --- 97483, Esophagogastroduodenoscopy, flexible, transoral; with biopsy, single or multiple CPT copyright 2021 [employer]. All rights reserved. The codes documented in this report are preliminary and upon refrigerator repairman review may be revised to meet current compliance requirements. Almas Larsen DO 11/03/2024 6:58:22 AM This report has been signed electronically. Number of Addenda: 0 Note Initiated On: 11/03/2024 6:17 AM
--- NOTE | 2024-11-03 07:05 | PCM.POST.ANE ---
Anesthesia: Postop Eval I Current Vital Signs Temperature: 97.1 F Pulse Rate: 64 Blood Pressure: 99/63 Respiratory Rate: 16 Pulse Ox: 96 Oxygen Delivery Method: Room Air Assessment Airway patent: Yes Spontaneous unlabored respirations: Yes Mental status: Awake and Calm nausea: No Vomiting: No Anesthesia Complication: No Fluid Hydration Crystalloid volume administer (ml): 400 Total IV fluid infused: 400 Progress Note Anesthesia document: Postop Eval 1 completed: Yes
--- NOTE | 2024-11-03 11:17 | PCM.POSTANE2 ---
Anesthesia Postop Eval I Sum Postop Eval Completion status Anesthesia document: Postop Eval 1 completed: Yes Anesthesia Postop Eval I Summary Anesthesia Postop Eval I Summary: Anesthesia Postop Eval I: Assessment Summary Airway patent Yes 11/03/24 07:06 [email or web address] Spontaneous unlabored Yes 11/03/24 07:06 [email or web address] respirations Mental status Awake,Calm 11/03/24 07:06 [email or web address] nausea No 11/03/24 07:06 [email or web address] Vomiting No 11/03/24 07:06 [email or web address] Anesthesia Postop Eval I: Fluid Summary Crystalloid volume administer 400 11/03/24 07:06 [email or web address] (ml) Colloids volume administered ( ml) Blood Product volume administered (ml) Total IV fluid infused 400 11/03/24 07:06 [email or web address] Anesthesia Postop Eval I: Summary Notes Anesthesia Complication No 11/03/24 07:06 [email or web address] Anesthesia Complication Comment: Post-operative progress note Anesthesia: Postop Eval II Evaluation Mental status: Awake and Calm Pain Level: 0 nausea: No Vomiting: No Complications Anesthesia Complication: No
== END 2024-11-03 07:29 | disposition home or self-care (01) ==
LOC: EN 05:29 → AC 05:29
PROVIDERS: PCP Student in an Organized Health Care Education/Training Program; Referring Provider Student in an Organized Health Care Education/Training Program; Visit Provider Internal Medicine Gastroenterology
PROC: 0DJ08ZZ Inspection of Upper Intestinal Tract, Via Natural or Artificial Opening Endoscopic (ICD-10-PCS; CPT 43235; principal; 2024-11-03 06:25)
DX: K21.9 Gastro-esophageal reflux disease without esophagitis (principal); I10 Essential (primary) hypertension; Z79.899 Other long term (current) drug therapy; Z79.85 Long-term (current) use of injectable non-insulin antidiabetic drugs
CPT/HCPCS: 43239; 88305; J2405